=== PATIENT | female | born 1990 | race Caucasian/White ===

== ENCOUNTER 2016-08-28 10:49 | Outpatient (CLI) | payer MEDICAID | END 2016-08-28 10:50 | disposition home or self-care (01) | DX: Z36 Encounter for antenatal screening of mother (principal) ==

== ENCOUNTER 2016-09-26 11:15 | Outpatient (CLI) | payer MEDICAID | END 2016-09-26 11:16 | disposition home or self-care (01) | DX: Z36 Encounter for antenatal screening of mother (principal) ==

== ENCOUNTER 2016-10-25 10:43 | Outpatient (CLI) | payer MEDICAID | END 2016-10-25 10:44 | disposition home or self-care (01) | DX: O12.12 Gestational proteinuria, second trimester (principal) ==

== ENCOUNTER 2016-10-30 12:43 | Outpatient (CLI) | payer MEDICAID | END 2016-10-30 12:44 | disposition home or self-care (01) | DX: Z36 Encounter for antenatal screening of mother (principal) ==

== ENCOUNTER 2016-12-04 15:37 | Outpatient (CLI) | payer MEDICAID | END 2016-12-04 15:38 | disposition home or self-care (01) | DX: Z36 Encounter for antenatal screening of mother (principal) ==

== ENCOUNTER 2016-12-11 12:10 | Outpatient (CLI) | payer MEDICAID | END 2016-12-11 23:59 | disposition home or self-care (01) | DX: K29.90 Gastroduodenitis, unspecified, without bleeding (principal) ==

== ENCOUNTER 2016-12-19 11:40 | Outpatient (CLI) | payer MEDICAID | END 2016-12-19 11:41 | disposition home or self-care (01) | DX: R07.0 Pain in throat (principal) ==

== ENCOUNTER 2016-12-27 13:32 | Outpatient (CLI) | payer MEDICAID ==
--- NOTE | 2016-12-28 09:37 | Ultrasound Report ---
THYROID ULTRASOUND: 12/27/2016 CLINICAL INDICATION: Pain in throat. TECHNIQUE: Real-time scanning was performed with clearance representative static images obtained. FINDINGS: The right lobe measures 8.2 x 2.2 x 2.1 cm, and the left lobe measures 7.7 x 2.0 x 1.8 cm. The isthmus measures 9 mm. Multiple nodules of mixed echogenicity are scattered throughout both lo bes bilaterally. No dominant suspicious nodule is appreciated. IMPRESSION: MULTINODULAR GOITER. NO EVIDENCE OF CERVICAL ADENOPATHY. JOB #: [id number] EXT JOB #:[id number]
== END 2016-12-27 13:33 | disposition home or self-care (01) ==
LOC: DI 13:32
PROVIDERS: ATTEND Obstetrics & Gynecology
DX: E04.2 Nontoxic multinodular goiter (principal)
CPT/HCPCS: 76536

== ENCOUNTER 2017-01-16 11:59 | Outpatient (CLI) | payer MEDICAID ==
[2017-01-16 12:43] LABS: BASOPHILS % (AUTO) 0.4 %; EOSINOPHILS # (AUTO) 0.1 10^3/uL (0.0-0.7); EOSINOPHILS % (AUTO) 1.1 %; HCT - HEMATOCRIT 31.8 % (37.0-47.0); HGB - HEMOGLOBIN 10.5 g/dL (12.0-16.0); LYMPHOCYTES # (AUTO) 1.4 10^3/uL (1.5-3.5); LYMPHOCYTES % (AUTO) 11.8 %; MEAN CORPUSCULAR HEMOGLOBIN 24.8 pg (27.0-31.0); MEAN CORPUSCULAR VOLUME 75.3 fL (81.0-99.0); MEAN PLATELET VOLUME 9.1 fL (7.9-10.8); MONOCYTES # (AUTO) 0.6 10^3/uL (0.0-1.0); MONOCYTES % (AUTO) 5.1 %; NEUTROPHILS # (AUTO) 9.9 10^3/uL (1.5-6.6); NEUTROPHILS % (AUTO) 81.6 %; NUCLEATED RED BLOOD CELLS AUTO 0.1 /100WBC; RED BLOOD COUNT 4.23 10^6/uL (4.20-5.40); RED CELL DISTRIBUTION WIDTH 16.3 % (12.0-15.0); UNCORRECTED WHITE BLOOD COUNT 12.1 x10^3/uL; WHITE BLOOD COUNT 12.1 x10^3/uL (4.8-10.8)
== END 2017-01-16 12:00 | disposition home or self-care (01) ==
LOC: LAB 11:59
PROVIDERS: ATTEND Obstetrics & Gynecology
DX: Z36 Encounter for antenatal screening of mother (principal)
CPT/HCPCS: 36415; 82570; 84156; 84450; 84550; 85025

== ENCOUNTER 2017-01-17 08:00 | Outpatient (CLI) | payer MEDICAID | END 2017-01-17 23:59 | disposition home or self-care (01) | LOC: LAB.R 08:00 | PROVIDERS: ATTEND Obstetrics & Gynecology | DX: Z36 Encounter for antenatal screening of mother (principal) | CPT/HCPCS: 84156 ==

== ENCOUNTER 2017-01-17 11:12 | Outpatient (CLI) | payer MEDICAID ==
[2017-01-17 11:47] LABS: URIC ACID 4.4 mg/dL (2.6-7.2)
== END 2017-01-17 11:13 | disposition home or self-care (01) ==
LOC: LAB 11:12
PROVIDERS: ATTEND Obstetrics & Gynecology
DX: Z36 Encounter for antenatal screening of mother (principal)
CPT/HCPCS: 84450; 84550

== ENCOUNTER 2017-02-05 08:00 | Outpatient (CLI) | payer MEDICAID | END 2017-02-05 08:01 | disposition home or self-care (01) | LOC: LAB.R 08:00 | PROVIDERS: ATTEND Obstetrics & Gynecology | DX: Z36 Encounter for antenatal screening of mother (principal) | CPT/HCPCS: 87081 ==

== ENCOUNTER 2017-02-05 11:42 | Outpatient (CLI) | payer MEDICAID ==
[2017-02-05 12:36] VITALS: BP 112/55
== END 2017-02-05 12:42 | disposition home or self-care (01) ==
LOC: WFO 11:42 → OB 11:43 → WFO 12:42
PROVIDERS: ATTEND Obstetrics & Gynecology
DX: O36.8130 Decreased fetal movements, third trimester, not applicable or unspecified (principal); Z3A.34 34 weeks gestation of pregnancy
CPT/HCPCS: 59025; 87081

== ENCOUNTER 2017-02-12 10:24 | Outpatient (CLI) | payer MEDICAID ==
[2017-02-12 13:33] LABS: BILIRUBIN,URINE NEGATIVE (NEGATIVE)
[2017-02-12 13:45] LABS: UR CULTURE IF IND NOT INDICATED; WBC,URINE 0-3 /HPF (0-5)
[2017-02-12 13:49] VITALS: BP 127/56
== END 2017-02-12 14:00 | disposition home or self-care (01) ==
LOC: WFO 10:24 → OB 10:26 → WFO 14:00
PROVIDERS: ATTEND Obstetrics & Gynecology
DX: O99.89 Other specified diseases and conditions complicating pregnancy, childbirth and the puerperium (principal); R10.9 Unspecified abdominal pain
CPT/HCPCS: 59025; 81001; 87086

== ENCOUNTER 2017-02-19 08:00 | Outpatient (CLI) | payer MEDICAID | END 2017-02-19 08:01 | disposition home or self-care (01) | DX: Z36 Encounter for antenatal screening of mother (principal) ==

== ENCOUNTER 2017-02-19 21:08 | Outpatient (CLI) | payer MEDICAID ==
[2017-02-19] MEDS ORDERED: oxyCOD/ACETAMIN 5 MG/325 MG TABLET PO SCH (22:00)
[2017-02-19 22:02] LABS: BASOPHILS # (AUTO) 0.1 10^3/uL (0.0-0.1); BASOPHILS % (AUTO) 0.7 %; EOSINOPHILS # (AUTO) 0.2 10^3/uL (0.0-0.7); EOSINOPHILS % (AUTO) 1.7 %; HCT - HEMATOCRIT 34.1 % (37.0-47.0); HGB - HEMOGLOBIN 10.8 g/dL (12.0-16.0); LYMPHOCYTES # (AUTO) 1.7 10^3/uL (1.5-3.5); LYMPHOCYTES % (AUTO) 13.7 %; MEAN CORPUSCULAR HEMOGLOBIN 23.6 pg (27.0-31.0); MEAN CORPUSCULAR HGB CONC 31.7 g/dL (32.0-36.0); MEAN CORPUSCULAR VOLUME 74.5 fL (81.0-99.0); MEAN PLATELET VOLUME 9.3 fL (7.9-10.8); NEUTROPHILS # (AUTO) 9.2 10^3/uL (1.5-6.6); NEUTROPHILS % (AUTO) 75.9 %; RED BLOOD COUNT 4.58 10^6/uL (4.20-5.40); UNCORRECTED WHITE BLOOD COUNT 12.1 x10^3/uL; WHITE BLOOD COUNT 12.1 x10^3/uL (4.8-10.8)
[2017-02-19 22:14] LABS: ALBUMIN/GLOBULIN RATIO 0.7 (1.0-2.2); BILIRUBIN,TOTAL 0.6 mg/dL (0.2-1.0); CALCIUM 8.7 mg/dL (8.5-10.3); CREATININE 0.5 mg/dL (0.4-1.0); POTASSIUM 3.8 mmol/L (3.5-5.0); URIC ACID 4.7 mg/dL (2.6-7.2)
[2017-02-19 22:58] VITALS: BP 120/74
[2017-02-19] MEDS ORDERED: oxyCODONE/ACET 5/325 Prepack 4 PO SCH (22:58)
== END 2017-02-19 23:15 | disposition home or self-care (01) ==
LOC: WFO 21:08 → OB 21:09 → WFO 23:15
PROVIDERS: ATTEND Obstetrics & Gynecology
DX: O99.353 Diseases of the nervous system complicating pregnancy, third trimester (principal); G43.909 Migraine, unspecified, not intractable, without status migrainosus; Z3A.36 36 weeks gestation of pregnancy; Z36 Encounter for antenatal screening of mother
CPT/HCPCS: 36415; 80053; 82570; 84156; 84550; 85025; 87081; 99214; A9270

== ENCOUNTER 2017-02-22 13:27 | Outpatient (CLI) | payer MEDICAID ==
[2017-02-22] MEDS ORDERED: ONDANSETRON ODT 4 MG TABLET PO PRN (14:55)
[2017-02-22 15:40] VITALS: BP 107/62
== END 2017-02-22 15:40 | disposition home or self-care (01) ==
LOC: WFO 13:27 → OB 13:28 → WFO 15:40
PROVIDERS: ATTEND Obstetrics & Gynecology
DX: O21.9 Vomiting of pregnancy, unspecified (principal); Z3A.36 36 weeks gestation of pregnancy
CPT/HCPCS: 99212; Q0162

== ENCOUNTER 2017-02-27 09:57 | Inpatient (IN) | payer MEDICAID ==
[2017-02-27] MEDS ORDERED: fentaNYL 100 MCG/2 ML VIAL IVP PRN ×2 (10:41→17:18)
[2017-02-27] MEDS ORDERED: SODIUM CHLORIDE FLUSH 0.9% 10 ML SYRINGE IVP PRN (10:41)
[2017-02-27] MEDS ORDERED: ceFAZolin 2 GM/50 ML 50 ML IV SCH (10:41)
[2017-02-27 11:14] LABS: BASOPHILS # (AUTO) 0.1 10^3/uL (0.0-0.1); BASOPHILS % (AUTO) 0.6 %; EOSINOPHILS # (AUTO) 0.2 10^3/uL (0.0-0.7); EOSINOPHILS % (AUTO) 1.5 %; HCT - HEMATOCRIT 32.6 % (37.0-47.0); HGB - HEMOGLOBIN 10.8 g/dL (12.0-16.0); LYMPHOCYTES # (AUTO) 1.4 10^3/uL (1.5-3.5); LYMPHOCYTES % (AUTO) 13.7 %; MEAN CORPUSCULAR HEMOGLOBIN 24.2 pg (27.0-31.0); MEAN CORPUSCULAR VOLUME 73.2 fL (81.0-99.0); MEAN PLATELET VOLUME 9.5 fL (7.9-10.8); MONOCYTES # (AUTO) 0.7 10^3/uL (0.0-1.0); MONOCYTES % (AUTO) 6.5 %; NEUTROPHILS # (AUTO) 7.9 10^3/uL (1.5-6.6); NEUTROPHILS % (AUTO) 77.7 %; NUCLEATED RED BLOOD CELLS AUTO 0.1 /100WBC; RED BLOOD COUNT 4.45 10^6/uL (4.20-5.40); RED CELL DISTRIBUTION WIDTH 19.6 % (12.0-15.0); UNCORRECTED WHITE BLOOD COUNT 10.2 x10^3/uL; WHITE BLOOD COUNT 10.2 x10^3/uL (4.8-10.8)
[2017-02-27] MEDS: SODIUM CHLORIDE FLUSH 0.9% 10 ML SYRINGE IVP SCH ×2 (11:35→23:21)
[2017-02-27] MEDS: LACTATED RINGERS 1,000 ML IV SCH ×3 (11:35→22:48)
[2017-02-27 11:59] LABS: THYROID STIMULATING HORMONE 0.72 uIU/mL (0.34-5.60)
[2017-02-27] MEDS ORDERED: ONDANSETRON 4 MG/2 ML VIAL IVP ONE (12:30)
[2017-02-27] MEDS ORDERED: MORPHINE PF 5 MG/10 ML AMP EP ONE (12:30)
[2017-02-27] MEDS ORDERED: fentaNYL 100 MCG/2 ML VIAL IVP ONE (12:30)
[2017-02-27] MEDS ORDERED: PHENYLEPHRINE 50 MG/5 ML VIAL IV ONE (12:30)
[2017-02-27] MEDS ORDERED: CITRIC ACID/SODIUM CITRATE 15 ML UDC PO ONE (12:41)
[2017-02-27] MEDS ORDERED: MAGNESIUM HYDROXIDE 2,400 MG/30 ML UDC PO PRN (14:25)
--- NOTE | 2017-02-27 14:41 | OPERATIVE REPORT ---
Operative Report - General Admit Date: 02/27/17 - Other Other Information/Narrative: Date of Operation: 02/27/2017 Surgeon: Vicki Chavez DO FACOG Acid Pump Operator: Juan Miguel Hilton MD FACOG Language Pathologist: Kobe Garcia CRNA Anethesia: Spinal Pre-op Dx: 1. 26 yo with a 37w4d IUP 2. PROM 3. Prior CD x 1 Post-op Dx: 1. 26 yo with a 37w4d IUP 2. PROM 3. Prior CD x 1 Procedure: Repeat CD Findings: Viable female fetus, "Karely," VTX presentation. Normal uterus, fallopian tubes and ovaries. Apgars 9/9. Weight 3794 gm or 8 lbs, 5.8 oz. Specimens: 1. Placenta (to medical waste) 2. Cord blood (to lab) Drains: 1. Sheridan catheter to gravity 2. Prevena wound vac EBL: 500 mL Complications: None Dictation: [id number]
[2017-02-27] MEDS ORDERED: FERRIC GLUCONATE 125 MG in SODIUM CHLORIDE 0.9% 100ML 100 ML IV SCH (15:00)
[2017-02-27] MEDS: ONDANSETRON 4 MG/2 ML VIAL IVP PRN ×2 (15:41→21:17)
[2017-02-27] MEDS ORDERED: KETOROLAC 30 MG/ML VIAL IVP ONE (17:17)
[2017-02-27] MEDS: ACETAMINOPHEN 500 MG TABLET PO SCH (17:50)
[2017-02-27] MEDS: oxyCODONE 5 MG TABLET PO SCH ×2 (17:51→23:21)
[2017-02-27] MEDS ORDERED: CELECOXIB 100 MG CAPSULE PO SCH (21:00)
[2017-02-27] MEDS: DOCUSATE SODIUM 100 MG CAPSULE PO SCH (23:21)
[2017-02-27] MEDS: SIMETHICONE CHEW 80 MG TABLET PO SCH (23:21)
[2017-02-27] MEDS: PROMETHAZINE INJ 25 MG in SODIUM CHLORIDE 0.9% 50 ML IV PRN (23:59)
[2017-02-27] MEDS: KETOROLAC 30 MG/ML VIAL IVP SCH (23:59)
[2017-02-28] MEDS: ACETAMINOPHEN 500 MG TABLET PO SCH ×3 (01:47→18:16)
[2017-02-28] MEDS: oxyCODONE 5 MG TABLET PO SCH ×6 (02:12→22:16)
[2017-02-28] MEDS: KETOROLAC 30 MG/ML VIAL IVP SCH (05:51)
[2017-02-28] MEDS: PROMETHAZINE INJ 25 MG in SODIUM CHLORIDE 0.9% 50 ML IV PRN (06:13)
[2017-02-28] MEDS: LACTATED RINGERS 1,000 ML IV SCH ×3 (06:15→15:50)
[2017-02-28] MEDS: SODIUM CHLORIDE FLUSH 0.9% 10 ML SYRINGE IVP SCH ×2 (06:16→15:51)
[2017-02-28] MEDS: SIMETHICONE CHEW 80 MG TABLET PO SCH ×3 (06:18→22:17)
[2017-02-28] MEDS ORDERED: LACTATED RINGERS 500 ML IV ONE (08:46)
--- NOTE | 2017-02-28 08:50 | PROVIDER PROGRESS NOTE ---
Subjective - Prog Note Date Prog Note Date: 02/28/17 Prog Note Time: 08:48 - Subjective Pt reports feeling: Improved Subjective: Patient in bed, finishing breakfast. at bedside carrying baby. Patient' s last emesis at 00:00. Phenergan better than zofran for nausea control. Pain controlled so far; patient has gotten out of bed. Parnell and IV still in-situ. Current Medications - Current Medications Current Medications: Routine IV toradol, po Tylenol. PRN IV phenergan. Objective - Vital Signs/Intake & Output Reviewed Vital Signs: Yes Vital Signs: Vital Signs x48h Temp Pulse Resp BP Pulse Ox 02/28/17 07:52 96 18 109/52 L 99 02/28/17 05:09 18 96 02/28/17 04:10 98.2 F 92 16 98/53 L 96 02/28/17 02:30 18 98 02/28/17 01:30 16 96 Intake & Output: Intake & Output 02/25/17 02/26/17 02/27/17 02/28/17 23:59 23:59 23:59 23:59 Intake Total 1300 700 Output Total 600 350 Balance 700 350 - Objective General Appearance: positive: No acute distress Eyes Bilateral: positive: Normal inspection Abdomen: positive: Non-tender (Prevena wound vac intact and working well) Neurologic/Psychiatric: positive: Oriented x3 (Flat affect. Minimal verbalization.) - Lab Results Fish Bones: 02/27/17 10:55 Other Labs: Lab Results x24hrs 02/27/17 02/27/17 02/27/17 Range/Units 10:55 10:55 10:55 WBC (4.8-10.8) x10^3/uL RBC (4.20-5.40) 10^6/uL Hgb (12.0-16.0) g/dL Hct (37.0-47.0) % MCV (81.0-99.0) fL MCH (27.0-31.0) pg MCHC (32.0-36.0) g/dL RDW (12.0-15.0) % Plt Count (130-450) 10^3/uL MPV (7.9-10.8) fL Neut # (1.5-6.6) 10^3/uL Lymph # (1.5-3.5) 10^3/uL Lares # (0.0-1.0) 10^3/uL Eos # (0.0-0.7) 10^3/uL Baso # (0.0-0.1) 10^3/uL Absolute Nucleated RBC x10^3/uL Nucleated RBCs /100WBC TSH 0.72 (0.34-5.60) uIU/mL Free T4 0.73 (0.58-1.64) ng/dL Free T3 pg/mL 3.60 (2.5-3.9) pg/mL Blood Type O POSITIVE Antibody Screen NEGATIVE 02/27/17 Range/Units 10:55 WBC 10.2 (4.8-10.8) x10^3/uL RBC 4.45 (4.20-5.40) 10^6/uL Hgb 10.8 L (12.0-16.0) g/dL Hct 32.6 L (37.0-47.0) % MCV 73.2 L (81.0-99.0) fL MCH 24.2 L (27.0-31.0) pg MCHC 33.0 (32.0-36.0) g/dL RDW 19.6 H (12.0-15.0) % Plt Count 142 (130-450) 10^3/uL MPV 9.5 (7.9-10.8) fL Neut # 7.9 H (1.5-6.6) 10^3/uL Lymph # 1.4 L (1.5-3.5) 10^3/uL Lares # 0.7 (0.0-1.0) 10^3/uL Eos # 0.2 (0.0-0.7) 10^3/uL Baso # 0.1 (0.0-0.1) 10^3/uL Absolute Nucleated RBC 0.01 x10^3/uL Nucleated RBCs 0.1 /100WBC TSH (0.34-5.60) uIU/mL Free T4 (0.58-1.64) ng/dL Free T3 pg/mL (2.5-3.9) pg/mL Blood Type Antibody Screen Assessment/Plan - Problem List (1) delivery delivered Impression: 26 yo S/p repeat CD 02/27/2017, POD #1 Improved nausea and vomiting. Dehydrated due to surgery and emesis IVF bolus 500 mL and then continue maintenance. Will saline lock later today after urine output improves. Remove parnell catheter. Hold IV toradol and start routine po Celebrex. Ambulate. Anticipate discharge to home tomorrow.
[2017-02-28] MEDS: CELECOXIB 100 MG CAPSULE PO SCH ×2 (09:58→22:16)
[2017-02-28] MEDS: DOCUSATE SODIUM 100 MG CAPSULE PO SCH ×2 (09:58→21:24)
--- NOTE | 2017-02-28 13:16 | OPERATIVE REPORT ---
DATE OF SURGERY: 02/27/2017 00:00:00 PREOPERATIVE DIAGNOSES 1. A 26-year-old G2, P1-0-0-1 at 37 and 4/7 week intrauterine . 2. Premature rupture of membranes. 3. Prior delivery x1. POSTOPERATIVE DIAGNOSES 1. A 26-year-old G2, P1-0-0-1 at 37 and 4/7 week intrauterine . 2. Premature rupture of membranes. 3. Prior delivery x1. NAME OF PROCEDURE: Repeat delivery. SURGEON: Vicki Chavez D.O. ANESTHESIA: Spinal. VOCATIONAL REHABILITATION CONSULTANT: Juan Miguel Hilton MD ANESTHESIOLOGIST: Kobe Garcia CRNA FINDINGS: Viable female fetus, vertex presentation, named Karely. Normal uterus, fallopian tubes, and ovaries were noted. Apgars 9 and 9 at one and five minutes, respectively. Weight is 3794 grams or 8 pounds 5.8 ounces. SPECIMENS 1. Placenta to medical waste. 2. Cord blood to lab. DRAINS 1. Sheridan catheter to gravity. 2. Prevena wound VAC. ESTIMATED BLOOD LOSS: 500 mL. COMPLICATIONS: None. BRIEF HISTORY: The patient is a patient of [facility], who has noted loss of fluid e arlier today. She presented to Labor and Delivery and was found to be grossly ruptured. heart t ones were reactive category I, with a baseline in 130s. There were no contractions. I recommended the patient to undergo a repeat delivery. I discussed with her the risks, benefits, alternative s, indications, expectations of surgery. In our discussion I told her about the risk of hemorrhage, i nfection, damage to surrounding organs which may be inadvertent laceration, cauterization, or ligatio n of adjacent ureters, intestines, and bladder. After her questions were answered to her satisfaction , she verbalized her desire to proceed with surgery. Consent forms had been signed. OPERATION IN DETAIL: The patient was identified, consented, taken to the operating room with IV acces s already in place. She was then given satisfactory spinal anesthesia per Kobe Garcia. Sequential c ompression devices were placed on her lower legs and turned on. Two grams of Ancef IV were given to t he patient. Patient was then prepped and draped in normal sterile fashion in a dorsal supine position with a leftward tilt. Sheridan catheter was placed in her bladder and a timeout was correctly performed . I correctly performed, identifying the patient, site of the procedure, and the procedure itself. The patient's prior Pfannenstiel scar was first sharply excised. The incision was then taken deeply t o the layer of the fascia. Fascia was then nicked in the midline and extended laterally. The rectus m uscles were then dissected off the fascia. The rectus muscles were then sharply incised in the midlin e and the peritoneum entered sharply as well. This incision was then extended laterally. A bladder flap was then created by dissecting off the vesicouterine peritoneum. The hysterotomy was t hen performed in the lower uterine segment. Clear fluid was noted upon amniotomy. With the help of fu ndal pressure, the 's head delivered through the hysterotomy. The nose and mouth were suctioned with the bulb syringe. Again, with help of fundal pressure, the rest of the infant delivered through the hysterotomy. The baby gave a lusty cry upon delivery. The umbilical cord was then doubly clamped and cut and the was then given to Ander Chandra M.D., the on-call loom operator apprentice. Umbilical cord sample was obtained and sent off. The uterus was then internally massaged and placenta delivered manually. It was noted that the placenta appeared to be quite mature, with calcifications. The placenta did not come off in one specimen. The uterus was then delivered out of the abdomen and cleared of all clots and debris. The hysterotomy was closed with 2 sutures of 0 Vicryl, first in a ru nning locked fashion, then in an imbricating fashion using the Lembert stitch. Hemostasis was noted. A small area of adhesions was noted between the anterior surface of the uterus and attaching to the l ower right uterine anterior portion. This was lysed with electrocautery, and since there appeared to be a vein in the adhesion, hemostasis was obtained after throwing several [id number] stitches of 0 Vicryl. Reinspection of the hysterotomy found it to be hemostatically stable. The abdomen was copiously irrigated and found to be hemostatically stable. The uterus was then return ed to the abdomen, and again the abdomen was copiously irrigated. Hemostasis was seen. Peritoneum was closed with a running stitch of 2-0 Vicryl and the same stitch was used to reapproximate the rectus muscles. Fascia was then closed with 0 Vicryl in a running fashion. Subcuticular layer was then reapp roximated with single interrupted stitches of 2-0 Vicryl. The skin was then closed with 4-0 Monocryl in a subcuticular fashion. A Prevena wound VAC was placed on top of the incision and was turned on. The patient tolerated the procedure well, was sent back to recovery room in stable and awake conditio n. She will be given routine care, including around the clock Celebrex and Tylenol. The patient will also be given routine oxycodone. I will anticipate taking the Sheridan catheter out in the morning and t he Prevena wound VAC in about 4 days' time. All sponge, lap, and needle counts were correct x2 as per nurse report. JOB #: [id number] EXT JOB #:[id number]
--- NOTE | 2017-02-28 13:53 | PREOP HISTORY & PHYSICAL ---
DATE OF ADMISSION/SURGERY: 02/27/2017 IDENTIFICATION: A 26-year-old G2, P1-0-0-1, with a 37 and 4/7 week intrauterine . EDC is 11/2016, changed via 7-week ultrasound. HISTORY OF PRESENT ILLNESS: The patient is a patient at [facility] who noted a loss of fluid today. She has been having routine visits with us since 7 weeks' gestation. The pat lois's has been complicated by throat pain of unknown etiology. She was found to have hypot hyroidism and started on a low dose of levothyroxine. Ultrasound showed that she also had a multinodu lar goiter. She was then referred to endocrine doctor, Dimas Broussard M.D. He recommended that the patie nt stop her levothyroxine and retest her thyroid labs in 4 to 6 weeks. Her throat pain has improved s pontaneously. In any event, the patient was found to be grossly ruptured today. Her cervix is 1 cm dilated, closed, and -3 station. Nonstress test was reactive, category I tracing. There were no decelerations. Baseli ne is 130s. There were no decelerations and no contractions as well. The patient has been scheduled f or a repeat delivery since her first delivery was by secondary to failure to dilate and descend. It was scheduled for 03/14/2017. PAST MEDICAL HISTORY 1. Obesity, with a BMI of 42.4. 2. GERD. 3. Multinodular goiter. PAST SURGICAL HISTORY: delivery x1 secondary to failure to dilate and descend on 12/26/2011. ALLERGIES: NO KNOWN DRUG ALLERGIES. MEDICATIONS 1. vitamins. 2. Ranitidine 150 mg. SOCIAL HISTORY: She denies any tobacco, alcohol, or illicit drug use. This is a female fetus, with an ticipated name of Karely. Her 's name is Ander and they have a little boy, Oskar. Her mom i s Joycelyn. PAST OBSTETRICAL HISTORY: One term delivery at 40 weeks, 8 pounds 12 ounces, of son Oskar secondary to failure to dilate and descend. PAST GYNECOLOGICAL HISTORY: She has had 2 abnormal Pap smears with spontaneous resolution. She denies any other sexually transmitted diseases. FAMILY HISTORY: Noncontributory. REVIEW OF SYSTEMS: Negative unless otherwise stated. OBJECTIVE VITAL SIGNS: Temperature is 98.4, heart rate 98, blood pressure 117/65, respiratory rate 16, O2 satur ation 100%. GENERAL: The patient is a well-developed, well-nourished [place] female in no apparent dist ress. She is alert and oriented x3. CARDIOVASCULAR: Rate is regular. No murmurs or rubs. PULMONARY: Lungs are clear to auscultation bilaterally. ABDOMEN: Gravid, nontender. Baby is vertex by Pete. Estimated weight is 7 pounds. There is a well-healed Pfannenstiel skin incision. LABORATORY STUDIES: On 02/27/2017 labs showed a white count of 10.2, hemoglobin of 10.8, and hematocr it of 32.6, MCV is decreased at 73.2, platelets 142. TSH is 0.72, free T3 is 0.73. She is O positive and antibody screen negative. Currently pending a free T3. labs show that she is O positive, antibody screen negative, RPR nonreactive, rubella immune, hepatitis B surface antigen negative. Pap smear is negative on 07/31/2016. She is negative for gonorrhea and chlamydia. One-hour glucose juan carlos ance test was 137. GBS is negative. anatomical survey showed a posterior placenta, 3-vessel cor d, normal anatomical survey and dates were consistent. ASSESSMENT 1. A 26-year-old G2, P1-0-0-1, with a 37 and 4/7 week intrauterine . 2. Premature rupture of membranes. 3. Primary delivery x1. PLAN 1. Will proceed to a repeat delivery. 2. Patient does have iron-deficiency anemia and will likely give her iron after delivery. 3. Routine care. JOB #: [id number] EXT JOB #:[id number]
[2017-03-01] MEDS: ACETAMINOPHEN 500 MG TABLET PO SCH ×3 (02:39→17:51)
[2017-03-01] MEDS: oxyCODONE 5 MG TABLET PO SCH ×6 (02:40→22:49)
[2017-03-01] MEDS: SIMETHICONE CHEW 80 MG TABLET PO SCH ×3 (06:28→21:57)
--- NOTE | 2017-03-01 08:33 | PROVIDER PROGRESS NOTE ---
Subjective - Prog Note Date Prog Note Date: 03/01/17 Prog Note Time: 08:31 - Subjective Pt reports feeling: Worse Subjective: Sitting in chair, about to eat breakfast. States painful getting in and out of bed, and going to the bathroom. Having vaginal bleeding and changing the pad every time she toilets. Urinating well. Baby still learning to latch. Current Medications - Current Medications Current Medications: Routine Celebrex, acetaminophen, oxycodone, colace. Objective - Vital Signs/Intake & Output Reviewed Vital Signs: Yes Vital Signs: Vital Signs x48h Temp Pulse Resp BP Pulse Ox 03/01/17 02:30 98.1 F 111 H 18 122/63 99 Intake & Output: Intake & Output 02/26/17 02/27/17 02/28/17 03/01/17 23:59 23:59 23:59 23:59 Intake Total 1300 3600 Output Total 600 1975 Balance 700 1625 - Objective General Appearance: positive: No acute distress, Other (Flat affect, not motivated. Does not have a positive attitude. Speaks sparingly) Eyes Bilateral: positive: Normal inspection Abdomen: positive: Non-tender (Prevena wound vac intact and working well) Neurologic/Psychiatric: positive: Oriented x3 - Lab Results Fish Bones: 02/27/17 10:55 Assessment/Plan - Problem List (1) delivery delivered Impression: 26 yo S/p repeat CD 02/27/2017 secondary to PROM, POD #2. Slow recovery. Continue current care. Anticipate discharge to home tomorrow. S/p 02/27/2017 iron transfusion for iron deficiency anemia.
[2017-03-01] MEDS: DOCUSATE SODIUM 100 MG CAPSULE PO SCH ×2 (09:25→21:13)
[2017-03-01] MEDS: CELECOXIB 100 MG CAPSULE PO SCH ×2 (09:59→21:58)
[2017-03-02] MEDS: ACETAMINOPHEN 500 MG TABLET PO SCH ×2 (01:48→09:39)
[2017-03-02] MEDS: oxyCODONE 5 MG TABLET PO SCH ×3 (03:12→10:51)
[2017-03-02] MEDS: SIMETHICONE CHEW 80 MG TABLET PO SCH (06:56)
--- NOTE | 2017-03-02 09:26 | PROVIDER PROGRESS NOTE ---
Subjective - Prog Note Date Prog Note Date: 03/02/17 Prog Note Time: 09:24 - Subjective Pt reports feeling: Improved Subjective: Patient sitting in bed, breast pumping. Dr. Chandra just finishing up examining baby Karely. Nausea resolved. No fevers or chills. Stings a little when she urinates. Still having some pain when she gets in and out of bed. Normal lochia. Objective - Vital Signs/Intake & Output Reviewed Vital Signs: Yes Vital Signs: Vital Signs x48h Temp Pulse Resp BP BP Pulse Ox 03/02/17 07:53 97.7 F 93 14 125/83 H 99 03/02/17 03:09 97.7 F 101 H 16 110/63 98 Intake & Output: Intake & Output 02/27/17 02/28/17 03/01/17 03/02/17 23:59 23:59 23:59 23:59 Intake Total 1300 3600 Output Total 600 1975 Balance 700 1625 - Objective General Appearance: positive: No acute distress Eyes Bilateral: positive: Normal inspection Abdomen: positive: Non-tender (Prevena wound vac intact and working well) Neurologic/Psychiatric: positive: Oriented x3 - Lab Results Fish Bones: 02/27/17 10:55 Assessment/Plan - Problem List (1) delivery delivered Impression: 26 yo S/p repeat CD 02/28/2017, POD #3. Normal recovery. S/p iron transfusion for iron deficiency anemia. Discharge to home today. Home Rx for ibuprofen, oxycodone and colace. Pelvic rest, no lifting > 10 lbs. Call for worsening fevers, chills, abdominal pain or vaginal bleeding. Follow up with me 03/05/2017 for removal of Prevena wound vac. Discharge Plan Disposition: 01 Home, Self Care Condition: Good Diet: Regular Shower Restrictions: No Driving Restrictions: Yes (No driving) Weight Bearing: Full Weight No Smoking: If you smoke, Please STOP! Call for help.
[2017-03-02] MEDS: DOCUSATE SODIUM 100 MG CAPSULE PO SCH (09:39)
[2017-03-02] MEDS: CELECOXIB 100 MG CAPSULE PO SCH (09:40)
[2017-03-02 12:33] VITALS: BP 135/83
[2017-03-02] MEDS ORDERED: MEASLES,MUMPS & RUBELLA VACC 0.5 ML VIAL SUBQ ONE (13:00)
--- NOTE | 2017-03-03 16:09 | DISCHARGE SUMMARY ---
DATE OF ADMISSION: 02/27/2017 DATE OF DISCHARGE: 03/02/2017 DIAGNOSES ON ADMISSION: 1. A 26-year-old G2, P1-0-0-1, with a 37 and 4 week intrauterine . 2. Premature rupture of membranes. 3. Prior caesarean delivery x1. DIAGNOSES ON DISCHARGE: 1. A 26-year-old G2, P2-0-0-2 status post repeat caesarean delivery on 02/27/2017. 2. Status post iron transfusion for iron deficiency anemia. 3. Normal recovery. BRIEF HISTORY: The patient is a patient of [facility] who presented on 02/27/2017 wi th complaints of loss of fluid. The patient was found to be grossly ruptured. She underwent a repeat caesarean delivery and had a viable female named Karely. Apgars were 9 and 9 at 1 and 5 minute s respectively and she weighed 3,794 grams or 8 pounds 5.8 ounces. Surgery went well, there were no c omplications. Estimated blood loss was 500 mL. The patient's postoperative course has only been noted for a slow recovery. The patient was given ahsan und the clock NSAIDs as well as acetaminophen and Colace. In addition she was given narcotics for silvia akthrough pain. The patient will be discharged to home on postoperative day #3, 03/02/2017. She will be given prescriptions for Motrin, Colace, and Oxycodone for postoperative management. Anticipate see ing patient in the next few days in order to remove her Prevena wound VAC. The patient should call ould she have any worsening fevers, chills, abdominal pain or vaginal bleeding. JOB #: [id number] EXT JOB #:[id number]
== END 2017-03-02 14:00 | disposition home or self-care (01) | DRG 765 ==
LOC: WFO 09:57 → OB 09:58 → WFO 10:48 → OB 03-02 11:41
PROVIDERS: ADMIT Obstetrics & Gynecology; ATTEND Obstetrics & Gynecology
PROC: 10D00Z1 Extraction of Products of Conception, Low, Open Approach (ICD-10-PCS; principal; 2017-02-27)
DX: O42.92 Full-term premature rupture of membranes, unspecified as to length of time between rupture and onset of labor (principal); Z68.41 Body mass index [BMI] 40.0-44.9, adult; O34.211 Maternal care for low transverse scar from previous cesarean delivery; N85.8 Other specified noninflammatory disorders of uterus; O99.214 Obesity complicating childbirth; O99.62 Diseases of the digestive system complicating childbirth; K21.9 Gastro-esophageal reflux disease without esophagitis; O99.284 Endocrine, nutritional and metabolic diseases complicating childbirth; E04.2 Nontoxic multinodular goiter; E86.0 Dehydration; O99.02 Anemia complicating childbirth; D50.9 Iron deficiency anemia, unspecified; Z3A.37 37 weeks gestation of pregnancy; Z37.0 Single live birth
CPT/HCPCS: 36415; 84439; 84443; 84481; 85025; 86850; 86900; 86901; 99212

== ENCOUNTER 2017-08-14 09:30 | Outpatient (CLI) | payer MEDICAID | END 2017-08-14 09:45 | disposition home or self-care (01) | LOC: RT.N 09:30 | PROVIDERS: ATTEND Nurse Practitioner Gerontology | DX: R07.89 Other chest pain (principal) | CPT/HCPCS: 93005 ==

== ENCOUNTER 2017-11-27 08:00 | Outpatient (CLI) | payer MEDICAID | END 2017-11-27 08:01 | LOC: LAB.N 08:00 | PROVIDERS: ATTEND Nurse Practitioner Gerontology | DX: E03.9 Hypothyroidism, unspecified (principal) | CPT/HCPCS: 36415; 84443 ==

== ENCOUNTER 2018-01-04 09:21 | Outpatient (CLI) | payer MEDICAID ==
--- NOTE | 2018-01-04 17:15 | Ultrasound Report ---
COMPLETE ABDOMINAL ULTRASOUND: 01/04/2018 CLINICAL INDICATION: Pain. TECHNIQUE: Real-time scanning was performed with tax compliance representative static images obtained. FINDINGS: The liver measures 17.5 cm. Hepatic echotexture is heterogeneous, likely representing fatty infiltration. No focal parenchymal lesion or intrahepatic biliary dilatation is present. The common bile duct measures 5 mm. The gallbladder is normal. The pancreas is obscured by bowel gas. The kidneys are normal, with the right measuring 10.5 cm, and the left measuring 11.5 cm. The spleen measures 13 cm, and demonstrates normal echotexture. The abdominal aorta is normal in caliber. The visualized IVC is unremarkable. No free fluid is present. IMPRESSION: LIKELY FATTY INFILTRATION OF THE LIVER. NO EVIDENCE OF CHOLELITHIASIS OR BILIARY OBSTRUCTION. TD: 01/04/2018 12:03
== END 2018-01-04 09:22 | disposition home or self-care (01) ==
LOC: DI 09:21
PROVIDERS: ATTEND Nurse Practitioner Gerontology
DX: K29.70 Gastritis, unspecified, without bleeding (principal); K44.9 Diaphragmatic hernia without obstruction or gangrene; K21.9 Gastro-esophageal reflux disease without esophagitis
CPT/HCPCS: 76700

== ENCOUNTER 2018-07-26 15:45 | Emergency (ER) | payer OTHER, MEDICAID ==
[2018-07-26 15:55] VITALS: BP 130/79
[2018-07-26] MEDS ORDERED: DEXAMETHASONE 10 MG/ML VIAL PO STA (16:43)
--- NOTE | 2018-07-26 16:46 | ED Physician Documentation ---
PD HPI BACK PAIN - Stated complaint Stated Complaint: BACK INJ - Chief complaint Chief Complaint: Back Pain - History obtained from History obtained from: Patient, Family - History of Present Illness Timing - onset: How many weeks ago (1) Timing - duration: Weeks (1) Timing - details: Gradual onset, Still present Location: Upper, Right Quality: Pain, Spasm, Sharp Associated symptoms: No: Fever, Weakness, Numbness Improves with: Rest Worsened by: Movement, Lifting, Twisting Contributing factors: Lifting, Twisting Similar symptoms before: Has not had sx before Recently seen: Not recently seen - Additional information Additional information: 28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 She states that this initially was a low-grade pain in his progressed over the past week and she has pain with certain movements of her arms and background pain at rest. She denies any difficulty breathing or pain with inspiration. She has had a cough and congestion for the past week. Review of Systems Constitutional: denies: Fever Eyes: denies: Decreased vision Ears: denies: Ear pain Nose: reports: Congestion Throat: denies: Sore throat Cardiac: denies: Chest pain / pressure, Palpitations Respiratory: reports: Cough. denies: Dyspnea GI: denies: Abdominal Pain, Nausea, Vomiting : denies: Dysuria, Frequency Skin: denies: Rash Musculoskeletal: reports: Back pain. denies: Neck pain, Extremity pain Neurologic: denies: Generalized weakness, Focal weakness, Numbness PD PAST MEDICAL HISTORY - Past Surgical History Past Surgical History: No - Present Medications Home Medications: Ambulatory Orders Medication Instructions Recorded Confirmed Cephalexin [Keflex] 500 mg PO Q6HR 10 Days capsule 12/01/15 Metronidazole [Flagyl] 500 mg PO BID 7 Days tablet 12/01/15 Ondansetron Odt [Zofran] 4 mg TL Q6H PRN #10 tablet 12/01/15 oxyCODONE/ACET 5/325 [Percocet 5 1 each PO Q4-6H PRN #15 tablet 12/01/15 mg/325 mg] Cyclobenzaprine [Flexeril] 10 mg PO TID PRN #20 tablet 07/26/18 Hydrocodone/Acetaminophen 1 - 2 each PO Q6H PRN #14 tablet 07/26/18 [Hydrocodon-Acetaminophen 5-325] - Allergies Allergies/Adverse Reactions: Allergies Allergy/AdvReac Type Severity Reaction Status Date / Time No Known Drug Allergies Allergy Verified 07/26/18 15:55 - Social History Does the pt smoke?: No Smoking Status: Never smoker Does the pt drink ETOH?: No Does the pt have substance abuse?: No - Immunizations Immunizations are current?: No PD ED PE NORMAL - Vitals Vital signs reviewed: Yes (normal ) - General General: Alert and oriented X 3, No acute distress, Well developed/nourished - HEENT HEENT: Atraumatic, PERRL, EOMI - Neck Neck: Supple, no meningeal sign, No bony TTP - Cardiac Cardiac: RRR, No murmur - Respiratory Respiratory: No respiratory distress, Clear bilaterally, Other (There is point tenderness over the rhomboid muscle area on the right. There is full ROM of the right shoulder. ) - Abdomen Abdomen: Soft, Non tender - Back Back: No CVA TTP, No spinal TTP - Derm Derm: Normal color, Warm and dry, No rash - Extremities Extremities: No deformity, No edema - Neuro Neuro: Alert and oriented X 3, No motor deficit, No sensory deficit, Normal speech Eye Opening: Spontaneous Motor: Obeys Commands Verbal: Oriented GCS Score: 15 - Psych Psych: Normal mood, Normal affect Results - Vitals Vitals: Vital Signs - 24 hr 07/26/18 15:51 Temperature 36.4 C L Heart Rate 84 Respiratory 16 Rate Blood Pressure 130/79 O2 Saturation 98 Oxygen O2 Source Room air PD MEDICAL DECISION MAKING - ED course Complexity details: considered differential, d/w patient ED course: 28-year-old female with rhomboid muscle spasm in the right arm 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 Departure - Departure Disposition: 01 Home, Self Care Clinical Impression: Strain of rhomboid muscle Qualifiers: Encounter type: initial encounter Qualified Code(s): S29.012A - Strain of muscle and tendon of back wall of thorax, initial encounter Condition: Stable Instructions: ED Spasm Back No Trauma Follow-Up: Roxanna Joseph ARNP [Primary Care Provider] - Prescriptions: Cyclobenzaprine [Flexeril] 10 mg PO TID PRN #20 tablet PRN Reason: Spasms Hydrocodone/Acetaminophen [Hydrocodon-Acetaminophen 5-325] 1 - 2 each PO Q6H PRN #14 tablet PRN Reason: pain Forms: Activity restrictions Discharge Date/Time: 07/26/18 16:56
== END 2018-07-26 16:56 | disposition home or self-care (01) ==
LOC: ED 15:45
DX: S29.012A Strain of muscle and tendon of back wall of thorax, initial encounter (principal); X50.9XXA Other and unspecified overexertion or strenuous movements or postures, initial encounter; Y93.F9 Activity, other caregiving; Y99.0 Civilian activity done for income or pay
CPT/HCPCS: 1040M; 99283

== ENCOUNTER 2018-08-07 15:02 | Emergency (ER) | payer OTHER, MEDICAID ==
[2018-08-07 15:10] VITALS: BP 134/86
--- NOTE | 2018-08-07 15:38 | ED Physician Documentation ---
PD HPI BACK PAIN - Stated complaint Stated Complaint: BACK PX - Chief complaint Chief Complaint: Back Pain - History obtained from History obtained from: Patient - History of Present Illness Timing - onset: Other (She was seen about 2 weeks ago for upper back pain after a lifting injury at work. Got much better but over the last few days is flared up again with a burning pain in the area of the right shoulder blade. It is worse with a lot of motions and not too bad at rest. She feels like it flared up again because she started working full duty again.) Review of Systems Constitutional: denies: Fever, Chills Nose: denies: Rhinorrhea / runny nose Cardiac: denies: Chest pain / pressure, Palpitations Respiratory: denies: Dyspnea, Cough PD PAST MEDICAL HISTORY - Past Surgical History Past Surgical History: No - Present Medications Home Medications: Ambulatory Orders Medication Instructions Recorded Confirmed Cephalexin [Keflex] 500 mg PO Q6HR 10 Days capsule 12/01/15 Metronidazole [Flagyl] 500 mg PO BID 7 Days tablet 12/01/15 Ondansetron Odt [Zofran] 4 mg TL Q6H PRN #10 tablet 12/01/15 oxyCODONE/ACET 5/325 [Percocet 5 1 each PO Q4-6H PRN #15 tablet 12/01/15 mg/325 mg] Cyclobenzaprine [Flexeril] 10 mg PO TID PRN #20 tablet 07/26/18 Hydrocodone/Acetaminophen 1 - 2 each PO Q6H PRN #14 tablet 07/26/18 [Hydrocodon-Acetaminophen 5-325] Cyclobenzaprine [Flexeril] 10 mg PO TID PRN #20 tablet 08/07/18 Hydrocodone/Acetaminophen 1 - 2 each PO Q6H PRN #14 tablet 08/07/18 [Hydrocodon-Acetaminophen 5-325] Ibuprofen [Motrin] 800 mg PO Q8H PRN #30 tablet 08/07/18 - Allergies Allergies/Adverse Reactions: Allergies Allergy/AdvReac Type Severity Reaction Status Date / Time No Known Drug Allergies Allergy Verified 08/07/18 15:10 - Social History Does the pt smoke?: No Smoking Status: Never smoker Does the pt drink ETOH?: No Does the pt have substance abuse?: No - Immunizations Immunizations are current?: No PD ED PE NORMAL - Vitals Vital signs reviewed: Yes - General General: Alert and oriented X 3, No acute distress - Neck Neck: Supple, no meningeal sign, No bony TTP - Cardiac Cardiac: RRR, No murmur - Respiratory Respiratory: No respiratory distress, Clear bilaterally - Abdomen Abdomen: Non tender - Back Back: No spinal TTP, Other (Palpable tenderness and spasm to the right parathoracic musculature.) - Neuro Neuro: Alert and oriented X 3, Normal speech Results - Vitals Vitals: Vital Signs - 24 hr 08/07/18 15:07 Temperature 36.4 C L Heart Rate 101 H Respiratory 14 Rate Blood Pressure 134/86 H O2 Saturation 97 Oxygen O2 Source Room air Departure - Departure Disposition: Home, Self Care Clinical Impression: Strain of rhomboid muscle Qualifiers: Encounter type: initial encounter Qualified Code(s): S29.012A - Strain of muscle and tendon of back wall of thorax, initial encounter Condition: Good Record reviewed to determine appropriate education?: Yes Instructions: ED Spasm Back No Trauma Prescriptions: Cyclobenzaprine [Flexeril] 10 mg PO TID PRN #20 tablet PRN Reason: Spasms Hydrocodone/Acetaminophen [Hydrocodon-Acetaminophen 5-325] 1 - 2 each PO Q6H PRN #14 tablet PRN Reason: pain Ibuprofen [Motrin] 800 mg PO Q8H PRN #30 tablet PRN Reason: PAIN &/OR FEVER Comments: IF THIS BECOMES A PERSISTENT PROBLEM, TALK WITH ROSS [facility]INDS ABOUT PHYSICAL THERAPY. Your blood pressure was elevated today on check into the emergency department. This does not mean that you have hypertension, it is a common phenomenon to come to the emergency department and have elevated blood pressure. I recommend that you see your primary care physician within the week to have it rechecked when you are feeling better. Do not drink or drive while taking narcotic pain medication. Note that many narcotic pain relievers also contain Tylenol/acetaminophen. Please ensure that your total dose of acetaminophen from all sources does not exceed 3 g (3000 mg) per day. You may get constipated while on this medication. Take a stool softener such as Colace twice a day while you are on it. Also add an [id number] laxative such as senna or MiraLAX on any day that you do not have a bowel movement. If you received a narcotic pain medication or sedative while in the emergency department, do not drive for the next 24 hours. Forms: Activity restrictions
== END 2018-08-07 15:51 | disposition home or self-care (01) ==
LOC: ED 15:02
DX: S29.012A Strain of muscle and tendon of back wall of thorax, initial encounter (principal); X50.0XXA Overexertion from strenuous movement or load, initial encounter; Y99.0 Civilian activity done for income or pay; R03.0 Elevated blood-pressure reading, without diagnosis of hypertension
CPT/HCPCS: 99283

== ENCOUNTER 2018-08-13 11:20 | Emergency (ER) | payer MEDICAID ==
--- NOTE | 2018-08-13 12:21 | ED Physician Documentation ---
PD HPI BACK PAIN - Stated complaint Stated Complaint: BACK PX - Chief complaint Chief Complaint: Back Pain - History obtained from History obtained from: Patient - History of Present Illness Timing - onset: How many weeks ago (2) Timing - duration: Weeks (2) Timing - details: Abrupt onset (with lifting), Still present, Waxing and waning (improved some with NSAIDs and rest off work, but hurting more again with light duty even) Location: Upper, Right (scapular area) Quality: Pain, Sharp. No: Throbbing Associated symptoms: No: Fever, Weakness, Numbness Improves with: Rest Worsened by: Movement, Lifting, Palpation Contributing factors: Lifting Similar symptoms before: Has not had sx before Recently seen: Emergency Dept (2 prior visits with Rx nsaids and muscle relaxants. Patient says not improved.) Review of Systems Constitutional: denies: Fever, Chills Nose: denies: Rhinorrhea / runny nose, Congestion Throat: denies: Sore throat Respiratory: denies: Dyspnea, Cough GI: denies: Nausea, Vomiting Skin: denies: Rash, Lesions PD PAST MEDICAL HISTORY - Past Medical History Cardiovascular: None Respiratory: None Neuro: None Endocrine/Autoimmune: None - Past Surgical History Past Surgical History: No - Present Medications Home Medications: Ambulatory Orders Medication Instructions Recorded Confirmed Cephalexin [Keflex] 500 mg PO Q6HR 10 Days capsule 12/01/15 Metronidazole [Flagyl] 500 mg PO BID 7 Days tablet 12/01/15 Ondansetron Odt [Zofran] 4 mg TL Q6H PRN #10 tablet 12/01/15 oxyCODONE/ACET 5/325 [Percocet 5 1 each PO Q4-6H PRN #15 tablet 12/01/15 mg/325 mg] Cyclobenzaprine [Flexeril] 10 mg PO TID PRN #20 tablet 07/26/18 Hydrocodone/Acetaminophen 1 - 2 each PO Q6H PRN #14 tablet 07/26/18 [Hydrocodon-Acetaminophen 5-325] Cyclobenzaprine [Flexeril] 10 mg PO TID PRN #20 tablet 08/07/18 Hydrocodone/Acetaminophen 1 - 2 each PO Q6H PRN #14 tablet 08/07/18 [Hydrocodon-Acetaminophen 5-325] Ibuprofen [Motrin] 800 mg PO Q8H PRN #30 tablet 08/07/18 Dexamethasone [Decadron] 4 mg PO DAILY #5 tablet 08/13/18 Naproxen 500 mg PO BID #20 tablet 08/13/18 - Allergies Allergies/Adverse Reactions: Allergies Allergy/AdvReac Type Severity Reaction Status Date / Time No Known Drug Allergies Allergy Verified 08/07/18 15:10 - Social History Does the pt smoke?: No Smoking Status: Never smoker Does the pt drink ETOH?: No Does the pt have substance abuse?: No - Immunizations Immunizations are current?: No PD ED PE NORMAL - Vitals Vital signs reviewed: Yes - General General: Alert and oriented X 3, No acute distress, Well developed/nourished - Neck Neck: Supple, no meningeal sign, No adenopathy - Cardiac Cardiac: RRR, No murmur - Respiratory Respiratory: Clear bilaterally - Abdomen Abdomen: Soft, Non tender - Back Back: No spinal TTP (but is tender focally at right medial scapular area, without redness, rash. ) - Derm Derm: Normal color, Warm and dry, No rash - Neuro Neuro: No motor deficit, No sensory deficit Results - Vitals Vitals: Vital Signs - 24 hr 08/13/18 08/13/18 11:32 13:21 Temperature 36.6 C Heart Rate 102 H 74 Respiratory 18 16 Rate Blood Pressure 131/82 H 129/85 H O2 Saturation 98 100 Oxygen O2 Source Room air Procedures - General procedure General procedure: Trigger point injection with lidocaine and Kenalog. SKin cleansed with prep and 27g needle used without problems. No bleeding after. PD MEDICAL DECISION MAKING - ED course Complexity details: considered differential (focally tender at muscle. Can try trigger point injection and more time off work to rest. Can try chiropractic and massage as well. ), d/w patient Departure - Departure Disposition: Home, Self Care Clinical Impression: Thoracic back sprain Qualifiers: Encounter type: subsequent encounter Qualified Code(s): S23.9XXD - Sprain of unspecified parts of thorax, subsequent encounter Condition: Stable Record reviewed to determine appropriate education?: Yes Follow-Up: Roxanna Joseph ARNP [Primary Care Provider] - Prescriptions: Dexamethasone [Decadron] 4 mg PO DAILY #5 tablet Naproxen 500 mg PO BID #20 tablet Comments: Off work for 3 more days and then very light duty after that. In the next few days try to obtain a follow-up visit with your primary care and also you could seek massage your chronic care advocate and that I believe would be covered under the L&I number. These would be helpful in through that area as well. Change from ibuprofen to naproxen and add Decadron steroid anti-inflammatory. This is to complement the injection we did in the sore muscle. Forms: Activity restrictions Discharge Date/Time: 08/13/18 13:22
[2018-08-13] MEDS ORDERED: TRIAMCINOLONE 40 MG/ML VIAL IM STA (12:41)
[2018-08-13] MEDS ORDERED: NAPROXEN 250 MG TABLET PO STA (12:41)
[2018-08-13] MEDS ORDERED: ACETAMINOPHEN 325 MG TABLET PO STA (12:41)
[2018-08-13 13:22] VITALS: BP 129/85
== END 2018-08-13 13:22 | disposition home or self-care (01) ==
LOC: ED 11:20
DX: S23.9XXA Sprain of unspecified parts of thorax, initial encounter (principal); X50.0XXA Overexertion from strenuous movement or load, initial encounter; M54.6 Pain in thoracic spine
CPT/HCPCS: 20552; 99283; A9270

== ENCOUNTER 2018-08-17 10:33 | Emergency (ER) | payer MEDICAID ==
[2018-08-17 10:42] VITALS: BP 142/113
--- NOTE | 2018-08-17 11:24 | ED Physician Documentation ---
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 It is located underneath the right scapula. Has been seen here x4 for same. States has not been able to follow-up with a primary care provider or L&I provider. States that her symptoms are still present when using the arm. No numbness or tingling. Better with rest a nd worse with movement. Review of Systems Constitutional: denies: Fever GI: denies: Vomiting : denies: Unable to Void, Incontinent, Now EGA Musculoskeletal: denies: Neck pain, Back pain Neurologic: denies: Focal weakness, Numbness PD PAST MEDICAL HISTORY - Past Medical History Past Medical History: No Cardiovascular: None Respiratory: None Neuro: None Endocrine/Autoimmune: None - Past Surgical History Past Surgical History: No - Present Medications Home Medications: Ambulatory Orders Medication Instructions Recorded Confirmed Cephalexin [Keflex] 500 mg PO Q6HR 10 Days capsule 12/01/15 Metronidazole [Flagyl] 500 mg PO BID 7 Days tablet 12/01/15 Ondansetron Odt [Zofran] 4 mg TL Q6H PRN #10 tablet 12/01/15 oxyCODONE/ACET 5/325 [Percocet 5 1 each PO Q4-6H PRN #15 tablet 12/01/15 mg/325 mg] Cyclobenzaprine [Flexeril] 10 mg PO TID PRN #20 tablet 07/26/18 Hydrocodone/Acetaminophen 1 - 2 each PO Q6H PRN #14 tablet 07/26/18 [Hydrocodon-Acetaminophen 5-325] Cyclobenzaprine [Flexeril] 10 mg PO TID PRN #20 tablet 08/07/18 Hydrocodone/Acetaminophen 1 - 2 each PO Q6H PRN #14 tablet 08/07/18 [Hydrocodon-Acetaminophen 5-325] Ibuprofen [Motrin] 800 mg PO Q8H PRN #30 tablet 08/07/18 Dexamethasone [Decadron] 4 mg PO DAILY #5 tablet 01/01/19 Naproxen 500 mg PO BID #20 tablet 08/13/18 Cyclobenzaprine [Flexeril] 10 mg PO TID PRN #20 tablet 08/17/18 Meloxicam [Mobic] 15 mg PO DAILY PRN #20 tablet 08/17/18 - Allergies Allergies/Adverse Reactions: Allergies Allergy/AdvReac Type Severity Reaction Status Date / Time No Known Drug Allergies Allergy Verified 08/17/18 10:41 - Social History Does the pt smoke?: No Smoking Status: Never smoker Does the pt drink ETOH?: No Does the pt have substance abuse?: No - Immunizations Immunizations are current?: No PD ED PE NORMAL - Vitals Vital signs reviewed: Yes - General General: Alert and oriented X 3 - HEENT HEENT: PERRL, Moist mucous membranes - Neck Neck: Supple, no meningeal sign, No bony TTP - Cardiac Cardiac: RRR - Respiratory Respiratory: No respiratory distress, Clear bilaterally - Back Back: No spinal TTP (No midline tenderness to palpation or percussion. There is tenderness over the right rhomboid muscle. Pain with movement of the right arm, especially with active motion. Neurovascularly intact including the axillary nerve) - Derm Derm: Warm and dry - Neuro Neuro: Alert and oriented X 3, No motor deficit, No sensory deficit Results - Vitals Vitals: Vital Signs - 24 hr 08/17/18 10:40 Temperature 36.7 C Heart Rate 79 Respiratory 18 Rate Blood Pressure 142/113 H O2 Saturation 99 Oxygen O2 Source Room air PD MEDICAL DECISION MAKING - ED course Complexity details: reviewed results, re-evaluated patient, considered differential, d/w patient ED course: 28-year-old female presents to the emergency department with a continued rhomboid strain. She is well-appearing, nontoxic. Afebrile. She is requesting a note for work. Will allow her to return to work but not use the right arm. A list of labor and industry providers was given to the patient for follow-up. She may benefit from physical therapy. Patient counseled regarding signs and symptoms for which I believe and urgent re-evaluation would be necessary. Patient with good understanding of and agreement to plan and is comfortable going home at this time This document was made in part using voice recognition software. While efforts are made to proofread this document, sound alike and grammatical errors may occur. Departure - Departure Disposition: 01 Home, Self Care Clinical Impression: Rhomboid muscle strain Qualifiers: Encounter type: initial encounter Qualified Code(s): S29.012A - Strain of muscle and tendon of back wall of thorax, initial encounter Condition: Good Instructions: ED Neck Back Pain General Prescriptions: Cyclobenzaprine [Flexeril] 10 mg PO TID PRN #20 tablet PRN Reason: Spasms Meloxicam [Mobic] 15 mg PO DAILY PRN #20 tablet PRN Reason: pain Comments: You need to follow-up with an L and I provider for further care. A list was printed for you today. Wear the sling for the next 3 days. Forms: Activity restrictions Discharge Date/Time: 08/17/18 11:57
== END 2018-08-17 11:57 | disposition home or self-care (01) ==
LOC: ED 10:33
DX: S29.012A Strain of muscle and tendon of back wall of thorax, initial encounter (principal); X50.9XXA Other and unspecified overexertion or strenuous movements or postures, initial encounter; Y93.F2 Activity, caregiving, lifting; Y99.0 Civilian activity done for income or pay
CPT/HCPCS: 99283

== ENCOUNTER 2019-08-01 12:53 | Emergency (ER) | payer MEDICAID, OTHER ==
[2019-08-01 13:19] LABS: BILIRUBIN,URINE NEGATIVE (NEGATIVE); GLUCOSE, URINE (UA) NEGATIVE (NEGATIVE); KETONES,URINE (UA) NEGATIVE (NEGATIVE); LEUKOCYTE ESTERASE, URINE NEGATIVE (NEGATIVE); NITRITE,URINE NEGATIVE (NEGATIVE); OCCULT BLOOD,URINE TRACE-INTA (NEGATIVE); PROTEIN,URINE NEGATIVE (NEGATIVE); UROBILINOGEN,URINE 0.2 (NORMAL) E.U./dL (NORMAL)
[2019-08-01 13:21] LABS: CLARITY,URINE CLEAR (CLEAR); HCG UR QUAL NEGATIVE
--- NOTE | 2019-08-01 15:02 | ED Physician Documentation ---
PD HPI FEMALE - Stated complaint Stated Complaint: FEM - Chief complaint Chief Complaint: UTI - History obtained from History obtained from: Patient (2 days of urinary burning and frequency without flank pain, fevers. No discharge.) Review of Systems Constitutional: denies: Fever, Chills Cardiac: denies: Chest pain / pressure, Palpitations Respiratory: denies: Dyspnea, Cough PD PAST MEDICAL HISTORY - Past Medical History Cardiovascular: None Respiratory: None Neuro: None Endocrine/Autoimmune: None - Past Surgical History Past Surgical History: No - Present Medications Home Medications: Ambulatory Orders Medication Instructions Recorded Confirmed Cephalexin [Keflex] 500 mg PO Q6HR 10 Days capsule 12/01/15 Metronidazole [Flagyl] 500 mg PO BID 7 Days tablet 12/01/15 Ondansetron Odt [Zofran] 4 mg TL Q6H PRN #10 tablet 12/01/15 oxyCODONE/ACET 5/325 [Percocet 5 1 each PO Q4-6H PRN #15 tablet 12/01/15 mg/325 mg] Cyclobenzaprine [Flexeril] 10 mg PO TID PRN #20 tablet 07/26/18 Hydrocodone/Acetaminophen 1 - 2 each PO Q6H PRN #14 tablet 07/26/18 [Hydrocodon-Acetaminophen 5-325] Cyclobenzaprine [Flexeril] 10 mg PO TID PRN #20 tablet 08/07/18 Hydrocodone/Acetaminophen 1 - 2 each PO Q6H PRN #14 tablet 08/07/18 [Hydrocodon-Acetaminophen 5-325] Ibuprofen [Motrin] 800 mg PO Q8H PRN #30 tablet 08/07/18 Naproxen 500 mg PO BID #20 tablet 08/13/18 dexAMETHasone [Decadron] 4 mg PO DAILY #5 tablet 08/13/18 Cyclobenzaprine [Flexeril] 10 mg PO TID PRN #20 tablet 08/17/18 Meloxicam [Mobic] 15 mg PO DAILY PRN #20 tablet 08/17/18 Nitrofurantoin Monohyd/M-Cryst 100 mg PO BID #10 capsule 08/01/19 [Macrobid 100 mg Capsule] Phenazopyridine HCl [Pyridium] 200 mg PO TID PRN #6 tablet 08/01/19 - Allergies Allergies/Adverse Reactions: Allergies Allergy/AdvReac Type Severity Reaction Status Date / Time No Known Drug Allergies Allergy Verified 08/01/19 12:55 - Social History Does the pt smoke?: No Smoking Status: Never smoker Does the pt drink ETOH?: No Does the pt have substance abuse?: No - Immunizations Immunizations are current?: No PD ED PE NORMAL - Vitals Vital signs reviewed: Yes - General General: Alert and oriented X 3, No acute distress - Abdomen Abdomen: Soft, Non tender - Back Back: No CVA TTP - Neuro Neuro: Alert and oriented X 3, Normal speech Results - Vitals Vitals: Vital Signs - 24 hr 08/01/19 12:55 Temperature 36.5 C Heart Rate 95 Respiratory 16 Rate Blood Pressure 138/76 H O2 Saturation 99 Oxygen O2 Source Room air - Labs Labs: Laboratory Tests 08/01/19 12:05 Urine Color YELLOW Urine Clarity CLEAR Urine pH 6.0 Ur Specific [place] 1.025 Urine Protein NEGATIVE Urine Glucose (UA) NEGATIVE Urine Ketones NEGATIVE Urine Occult Blood TRACE-INTA Urine Nitrite NEGATIVE Urine Bilirubin NEGATIVE Urine Urobilinogen 0.2 (NORMAL) Ur Leukocyte Esterase NEGATIVE Ur Microscopic Review NOT INDICATED Urine Culture Comments NOT INDICATED Urine HCG, Qual NEGATIVE PD MEDICAL DECISION MAKING - ED course ED course: Symptoms are typical of cystitis and will treat as such Despite negative UA Departure - Departure Disposition: 01 Home, Self Care Clinical Impression: Cystitis Condition: Good Record reviewed to determine appropriate education?: Yes Instructions: ED UTI Cystitis Female Prescriptions: Nitrofurantoin Monohyd/M-Cryst [Macrobid 100 mg Capsule] 100 mg PO BID #10 capsule Phenazopyridine HCl [Pyridium] 200 mg PO TID PRN #6 tablet PRN Reason: dysuria Comments: If you develop flank pain, fevers, chills or generalized worsening or if you are not better in 2 to 3 days please return for reevaluation. Your blood pressure was elevated today on check into the emergency department. This does not mean that you have hypertension, it is a common phenomenon to come to the emergency department and have elevated blood pressure. I recommend that you see your primary care physician within the week to have it rechecked when you are feeling better.
[2019-08-01 15:06] VITALS: BP 134/82
== END 2019-08-01 15:06 | disposition home or self-care (01) ==
LOC: ED 12:53
DX: N30.90 Cystitis, unspecified without hematuria (principal); R03.0 Elevated blood-pressure reading, without diagnosis of hypertension
CPT/HCPCS: 81001; 81003; 81025; 87086; 99283

== ENCOUNTER 2019-09-24 22:15 | Emergency (ER) | payer MEDICAID ==
[2019-09-24 22:22] VITALS: BP 127/84
--- NOTE | 2019-09-24 22:33 | ED Physician Documentation ---
History of Present Illness - Stated complaint Stated Complaint: FEMALE - Chief complaint Chief Complaint: UTI - History obtained from History obtained from: Patient (the patient is a 29 y/o f who p/w dysuria and burning on urination. she denies any pelvic or abd pain or flank pain.denies fevers. patient reports urgency without hematuria, without pelvic pain, vaginal bleeding or discharge. reports was treated for UTI about a month ago. denies any hx of sti.) Review of Systems Ten Systems: 10 systems reviewed and negative Constitutional: reports: Reviewed and negative Eyes: reports: Reviewed and negative Ears: reports: Reviewed and negative Nose: reports: Reviewed and negative Throat: reports: Reviewed and negative Cardiac: reports: Reviewed and negative Respiratory: reports: Reviewed and negative GI: reports: Reviewed and negative : reports: Dysuria, Frequency Skin: reports: Reviewed and negative Musculoskeletal: reports: Reviewed and negative Neurologic: reports: Reviewed and negative Psychiatric: reports: Reviewed and negative Endocrine: reports: Reviewed and negative Immunocompromised: reports: Reviewed and negative PD PAST MEDICAL HISTORY - Past Medical History Cardiovascular: None Respiratory: None Neuro: None Endocrine/Autoimmune: None - Past Surgical History Past Surgical History: No - Present Medications Home Medications: Ambulatory Orders Medication Instructions Recorded Confirmed Cephalexin [Keflex] 500 mg PO Q6HR 10 Days capsule 12/01/15 Metronidazole [Flagyl] 500 mg PO BID 7 Days tablet 12/01/15 Ondansetron Odt [Zofran] 4 mg TL Q6H PRN #10 tablet 12/01/15 oxyCODONE/ACET 5/325 [Percocet 5 1 each PO Q4-6H PRN #15 tablet 12/01/15 mg/325 mg] Cyclobenzaprine [Flexeril] 10 mg PO TID PRN #20 tablet 07/26/18 Hydrocodone/Acetaminophen 1 - 2 each PO Q6H PRN #14 tablet 07/26/18 [Hydrocodon-Acetaminophen 5-325] Cyclobenzaprine [Flexeril] 10 mg PO TID PRN #20 tablet 08/07/18 Hydrocodone/Acetaminophen 1 - 2 each PO Q6H PRN #14 tablet 08/07/18 [Hydrocodon-Acetaminophen 5-325] Ibuprofen [Motrin] 800 mg PO Q8H PRN #30 tablet 08/07/18 Naproxen 500 mg PO BID #20 tablet 08/13/18 dexAMETHasone [Decadron] 4 mg PO DAILY #5 tablet 08/13/18 Cyclobenzaprine [Flexeril] 10 mg PO TID PRN #20 tablet 08/17/18 Meloxicam [Mobic] 15 mg PO DAILY PRN #20 tablet 08/17/18 Nitrofurantoin Monohyd/M-Cryst 100 mg PO BID #10 capsule 08/01/19 [Macrobid 100 mg Capsule] Phenazopyridine HCl [Pyridium] 200 mg PO TID PRN #6 tablet 08/01/19 Phenazopyridine [Pyridium] 100 mg PO TID 2 Days #5 tablet 09/24/19 - Allergies Allergies/Adverse Reactions: Allergies Allergy/AdvReac Type Severity Reaction Status Date / Time No Known Drug Allergies Allergy Verified 09/24/19 22:19 - Social History Does the pt smoke?: No Smoking Status: Never smoker Does the pt drink ETOH?: No Does the pt have substance abuse?: No - Immunizations Immunizations are current?: No PD ED PE NORMAL - Vitals Vital signs reviewed: Yes - General General: Alert and oriented X 3, No acute distress, Well developed/nourished - HEENT HEENT: Atraumatic, PERRL - Neck Neck: Supple, no meningeal sign - Cardiac Cardiac: RRR, No murmur, Strong equal pulses - Respiratory Respiratory: No respiratory distress, Clear bilaterally - Abdomen Abdomen: Normal bowel sounds, Soft, Non tender, Non distended, No organomegaly, Other (suprapubic tenderness to palpation.) - Female Female : Deferred - Rectal Rectal: Deferred - Back Back: No CVA TTP, No spinal TTP - Derm Derm: Normal color, Warm and dry, No rash - Extremities Extremities: No deformity - Neuro Neuro: Alert and oriented X 3 - Psych Psych: Normal mood, Normal affect Results - Vitals Vitals: Vital Signs - 24 hr 09/24/19 22:19 Temperature 36.6 C Heart Rate 87 Respiratory 14 Rate Blood Pressure 127/84 H O2 Saturation 99 Oxygen O2 Source Room air - Labs Labs: Laboratory Tests 09/24/19 09/24/19 22:30 22:30 Urine Color YELLOW Urine Clarity CLEAR Urine pH 5.5 Ur Specific [place] >=1.030 H >1.030 Urine Protein NEGATIVE Urine Glucose (UA) NEGATIVE Urine Ketones NEGATIVE Urine Occult Blood TRACE-INTA Urine Nitrite NEGATIVE Urine Bilirubin NEGATIVE Urine Urobilinogen 0.2 (NORMAL) Ur Leukocyte Esterase NEGATIVE Ur Microscopic Review NOT INDICATED Urine Culture Comments NOT INDICATED Urine HCG, Qual NEGATIVE Departure - Departure Disposition: 01 Home, Self Care Clinical Impression: Dysuria Condition: Good Instructions: ED Dysuria Uncertain Cause Follow-Up: Roxanna Joseph ARNP [Primary Care Provider] - Tomorrow Prescriptions: Phenazopyridine [Pyridium] 100 mg PO TID 2 Days #5 tablet
[2019-09-24 22:39] LABS: BILIRUBIN,URINE NEGATIVE (NEGATIVE); GLUCOSE, URINE (UA) NEGATIVE (NEGATIVE); KETONES,URINE (UA) NEGATIVE (NEGATIVE); LEUKOCYTE ESTERASE, URINE NEGATIVE (NEGATIVE); NITRITE,URINE NEGATIVE (NEGATIVE); OCCULT BLOOD,URINE TRACE-INTA (NEGATIVE); PH,URINE 5.5 PH (5.0-7.5); PROTEIN,URINE NEGATIVE (NEGATIVE); UROBILINOGEN,URINE 0.2 (NORMAL) E.U./dL (NORMAL)
[2019-09-24 22:40] LABS: CLARITY,URINE CLEAR (CLEAR); HCG UR QUAL NEGATIVE
[2019-09-24] MEDS ORDERED: PHENAZOPYRIDINE 100 MG TABLET PO STA (22:58)
== END 2019-09-24 23:06 | disposition home or self-care (01) ==
LOC: ED 22:15
DX: R30.0 Dysuria (principal); R35.0 Frequency of micturition; R39.15 Urgency of urination
CPT/HCPCS: 81003; 81025; 99283; A9270; 81001; 87086

== ENCOUNTER 2019-09-29 16:02 | Emergency (ER) | payer MEDICAID ==
[2019-09-29 16:32] LABS: BILIRUBIN,URINE NEGATIVE (NEGATIVE); GLUCOSE, URINE (UA) NEGATIVE (NEGATIVE); KETONES,URINE (UA) NEGATIVE (NEGATIVE); LEUKOCYTE ESTERASE, URINE NEGATIVE (NEGATIVE); NITRITE,URINE NEGATIVE (NEGATIVE); OCCULT BLOOD,URINE SMALL (NEGATIVE); PH,URINE 5.5 PH (5.0-7.5); PROTEIN,URINE NEGATIVE (NEGATIVE); UROBILINOGEN,URINE 0.2 (NORMAL) E.U./dL (NORMAL)
[2019-09-29 16:35] LABS: CLARITY,URINE CLEAR (CLEAR); HCG UR QUAL NEGATIVE
[2019-09-29 16:54] LABS: BACTERIA,URINE Rare /HPF (None Seen); MUCUS,URINE Marked Strands; SQUAMOUS EPITHELIAL CELL,UR MANY Squamous (<= Few)
--- NOTE | 2019-09-29 18:13 | ED Physician Documentation ---
PD HPI FEMALE - Stated complaint Stated Complaint: FEMALE - Chief complaint Chief Complaint: UTI - History obtained from History obtained from: Patient - History of Present Illness Timing - onset: How many weeks ago (1) Timing - duration: Weeks (1) Timing - details: Gradual onset, Still present, Waxing and waning Associated symptoms: Dysuria, Urinary frequency Contributing factors: No: Similar symptoms before: Diagnosis (UTI) Recently seen: Emergency Dept - Additional information Additional information: 29-year-old female has had a prior urinary tract infection in July of last year has developed symptoms again over this past weekend she was seen in the emergency department had a clear urinalysis 5 days ago she was placed on to Azo for 2 days she had improvement in her symptoms with this and when she stopped taking this her symptoms returned she has had severe symptoms now with frequency and urgency and dysuria. She denies any history of herpes she denies any trauma to the area. 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 HEENT: None Psych: None Musculoskeletal: None Derm: None - Past Surgical History Past Surgical History: No - Present Medications Home Medications: Ambulatory Orders Medication Instructions Recorded Confirmed Cephalexin [Keflex] 500 mg PO Q6HR 10 Days capsule 12/01/15 Metronidazole [Flagyl] 500 mg PO BID 7 Days tablet 12/01/15 Ondansetron Odt [Zofran] 4 mg TL Q6H PRN #10 tablet 12/01/15 oxyCODONE/ACET 5/325 [Percocet 5 1 each PO Q4-6H PRN #15 tablet 12/01/15 mg/325 mg] Cyclobenzaprine [Flexeril] 10 mg PO TID PRN #20 tablet 07/26/18 Hydrocodone/Acetaminophen 1 - 2 each PO Q6H PRN #14 tablet 07/26/18 [Hydrocodon-Acetaminophen 5-325] Cyclobenzaprine [Flexeril] 10 mg PO TID PRN #20 tablet 08/07/18 Hydrocodone/Acetaminophen 1 - 2 each PO Q6H PRN #14 tablet 08/07/18 [Hydrocodon-Acetaminophen 5-325] Ibuprofen [Motrin] 800 mg PO Q8H PRN #30 tablet 08/07/18 Naproxen 500 mg PO BID #20 tablet 08/13/18 dexAMETHasone [Decadron] 4 mg PO DAILY #5 tablet 08/13/18 Cyclobenzaprine [Flexeril] 10 mg PO TID PRN #20 tablet 08/17/18 Meloxicam [Mobic] 15 mg PO DAILY PRN #20 tablet 08/17/18 Nitrofurantoin Monohyd/M-Cryst 100 mg PO BID #10 capsule 08/01/19 [Macrobid 100 mg Capsule] Phenazopyridine HCl [Pyridium] 200 mg PO TID PRN #6 tablet 08/01/19 Phenazopyridine [Pyridium] 100 mg PO TID 2 Days #5 tablet 09/24/19 Nitrofurantoin [Macrobid] 100 mg PO BID #10 capsule 09/29/19 - Allergies Allergies/Adverse Reactions: Allergies Allergy/AdvReac Type Severity Reaction Status Date / Time No Known Drug Allergies Allergy Verified 09/29/19 16:10 - Social History Does the pt smoke?: No Smoking Status: Never smoker Does the pt drink ETOH?: No Does the pt have substance abuse?: No - Immunizations Immunizations are current?: No - POLST Patient has POLST: No PD ED PE NORMAL - Vitals Vital signs reviewed: Yes (hypertensive ) - General General: Alert and oriented X 3, No acute distress, Well developed/nourished - HEENT HEENT: Atraumatic, PERRL, EOMI - Respiratory Respiratory: No respiratory distress - Back Back: No CVA TTP, No spinal TTP - Derm Derm: Normal color, Warm and dry, No rash - Extremities Extremities: No deformity, No edema, No calf tenderness / cord - Neuro Neuro: Alert and oriented X 3, 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, No motor deficit, No sensory deficit, Normal speech Eye Opening: Spontaneous Motor: Obeys Commands Verbal: Oriented GCS Score: 15 - Psych Psych: Normal mood, Normal affect Results - Vitals Vitals: Vital Signs - 24 hr 09/29/19 16:11 Temperature 36.5 C Heart Rate 84 Respiratory 14 Rate Blood Pressure 127/82 H O2 Saturation 99 Oxygen O2 Source Room air - Labs Labs: Laboratory Tests 09/29/19 16:12 Urine Color YELLOW Urine Clarity CLEAR Urine pH 5.5 Ur Specific [place] >=1.030 H Urine Protein NEGATIVE Urine Glucose (UA) NEGATIVE Urine Ketones NEGATIVE Urine Occult Blood SMALL H Urine Nitrite NEGATIVE Urine Bilirubin NEGATIVE Urine Urobilinogen 0.2 (NORMAL) Ur Leukocyte Esterase NEGATIVE Urine RBC 6-10 H Urine WBC 0-3 Ur Squamous Epith Cells MANY Squamous H Urine Bacteria Rare Urine Mucus Marked Strands Ur Microscopic Review INDICATED Urine Culture Comments NOT INDICATED Urine HCG, Qual NEGATIVE PD MEDICAL DECISION MAKING - ED course Complexity details: considered differential, d/w patient ED course: 29-year-old female with recurrent urinary symptoms has another urine without white cells and scant bacteria. I am concerned about the possibility of interstitial cystitis and I have shared this with the patient. We will place her on a course of Macrobid and I will have her follow-up with urology in [place]. Departure - Departure Disposition: Home, Self Care Clinical Impression: Urinary tract infection Qualifiers: Urinary tract infection type: acute cystitis Hematuria presence: with hematuria Qualified Code(s): N30.01 - Acute cystitis with hematuria Condition: Stable Instructions: ED UTI Cystitis Female Follow-Up: Roxanna Joseph ARNP [Primary Care Provider] - Gilbert Lamas MD [Provider Admit Priv/Credential] - Prescriptions: Nitrofurantoin [Macrobid] 100 mg PO BID #10 capsule Comments: Today your urinalysis did not demonstrate the typical things found for infection. I am concerned about the possibility of a condition called interstitial cystitis and I would like you to follow-up with the urologist in [place]. Antibiotics have been helpful with this previously and you are having symptoms it is reasonable to take a course of antibiotic as well. Azo is available [id number] and will be helpful in controlling symptoms.
[2019-09-29 18:14] VITALS: BP 134/79
== END 2019-09-29 18:21 | disposition home or self-care (01) ==
LOC: ED 16:02
DX: N30.01 Acute cystitis with hematuria (principal)
CPT/HCPCS: 81001; 81003; 81025; 87086; 99283; 99284

== ENCOUNTER 2019-10-10 13:42 | Outpatient (CLI) | payer MEDICAID ==
[2019-10-10 19:21] LABS: BILIRUBIN,TOTAL 1.4 mg/dL (0.2-1.0); CALCIUM 9.1 mg/dL (8.5-10.3); CREATININE 0.6 mg/dL (0.4-1.0); TOTAL PROTEIN 7.9 g/dL (6.7-8.2)
== END 2019-10-10 23:59 | disposition home or self-care (01) ==
LOC: LAB.N 13:42
PROVIDERS: ATTEND Nurse Practitioner Gerontology
DX: E80.6 Other disorders of bilirubin metabolism (principal)
CPT/HCPCS: 36415; 80053

== ENCOUNTER 2019-10-24 12:19 | Outpatient (CLI) | payer MEDICAID ==
[2019-10-24 12:57] LABS: ALBUMIN 4.2 g/dL (3.2-5.5); ALBUMIN/GLOBULIN RATIO 1.1 (1.0-2.2); BILIRUBIN,TOTAL 1.1 mg/dL (0.2-1.0); CALCIUM 9.2 mg/dL (8.5-10.3); CREATININE 0.7 mg/dL (0.4-1.0); TOTAL PROTEIN 8.2 g/dL (6.7-8.2)
== END 2019-10-24 12:20 | disposition home or self-care (01) ==
LOC: LAB 12:19
PROVIDERS: ATTEND Nurse Practitioner Gerontology
DX: E80.6 Other disorders of bilirubin metabolism (principal)
CPT/HCPCS: 36415; 80053

== ENCOUNTER 2019-11-02 11:20 | Outpatient (CLI) | payer MEDICAID ==
--- NOTE | 2019-11-02 12:57 | Ultrasound Report ---
Reason: HYPERBILIRUBINEMIA Procedure Date: 11/02/2019 Accession Number: [id number] / [id number] Procedure: US - Abdomen Complete CPT Code: Final Report FULL RESULT: EXAM: ABDOMEN ULTRASOUND EXAM DATE: 11/02/2019 12:09 PM. CLINICAL HISTORY: HYPERBILIRUBINEMIA. COMPARISON: ABDOMEN COMPLETE 01/04/2018 9:27 AM. TECHNIQUE: Real-time scanning was performed with static images obtained. FINDINGS: Liver: Mildly inhomogeneous, increased echogenicity, suggesting diffuse fatty infiltration.No focal lesion. Liver measures 17.8 cm craniocaudally. Main portal vein flow: Hepatopetal. Gallbladder: Gallbladder wall thickness is normal.No gallstones.Sonographic Jade sign is absent, per technologist's notes. Biliary System: Common bile duct measures 4 mm. No intrahepatic ductal dilatation. Pancreas: Visualized portion is unremarkable. Kidneys: Right: 11.0 cm longitudinally. Normal echotexture.No hydronephrosis.No contour-deforming mass.No calculus. Left: 11.6 cm longitudinally. Normal echotexture.No hydronephrosis.No contour-deforming mass.No calculus. Spleen: 12.8 cm (378 cc). No focal lesion. Aorta and Inferior Vena Cava: Unremarkable. Other: No ascites. IMPRESSION: 1. Mildly enlarged, probably fatty liver. 2. Nonspecific mild splenomegaly. 3. Common bile duct is normal caliber. 4. No cholelithiasis or supporting ultrasound evidence of acute cholecystitis. RADIA
== END 2019-11-02 11:21 | disposition home or self-care (01) ==
LOC: DI 11:20
PROVIDERS: ATTEND Nurse Practitioner Gerontology
DX: R16.2 Hepatomegaly with splenomegaly, not elsewhere classified (principal)
CPT/HCPCS: 76700

== ENCOUNTER 2019-11-18 09:15 | Outpatient (CLI) | payer MEDICAID ==
--- NOTE | 2019-11-18 11:46 | CT Report ---
Reason: LUTS, BLADDER PAIN Procedure Date: 11/18/2019 Accession Number: [id number] / [id number] Procedure: CT - Abdomen/Pelvis WO CPT Code: Final Report FULL RESULT: EXAM: CT ABDOMEN AND PELVIS EXAM DATE: 11/18/2019 09:27 AM. CLINICAL HISTORY: Lower urinary tract symptoms, bladder pain. COMPARISONS: ABDOMEN COMPLETE 11/02/2019 11:22 AM ABDOMEN COMPLETE 01/04/2018 9:27 AM ABDOMEN/PELVIS W/O 12/01/2015 5:50 PM. TECHNIQUE: Routine helical CT imaging was performed through the abdomen and pelvis. IV contrast: None. Enteric contrast: No. Reconstructions: Coronal and sagittal. In accordance with CT protocol optimization, one or more of the following dose reduction techniques were utilized for this exam: automated exposure control, adjustment of mA and/or KV based on patient size, or use of iterative reconstructive technique. FINDINGS: Lung Bases: Unremarkable. Liver: Upper limits normal in size with right lobe 17.1 cm superior to inferior. No fatty change. No masses. Gallbladder/Bile Ducts: Unremarkable. Spleen: Upper limits normal in size measuring 13 cm longitudinally. No focal mass. Otherwise unremarkable. Pancreas: Unremarkable. Adrenal Glands: Unremarkable. Kidneys: No radiopaque stone. No masses or hydronephrosis. Ureters unremarkable. Peritoneal Cavity/Bowel: No free fluid, free air or adenopathy. No masses or acute inflammatory process. Pelvic Organs: Contracted but otherwise unremarkable urinary bladder. Uterus, cervix and vagina unremarkable. Adnexa unremarkable. Vasculature: No aneurysms or other significant abnormality. Bones: No significant abnormality. Other: None. IMPRESSION: 1. No kidney stones, ureter stones or urinary bladder stones. No hydronephrosis. No acute renal abnormality seen on noncontrast CT. 2. No acute abnormality otherwise noted on CT scan of abdomen and pelvis as detailed above. RADIA
== END 2019-11-18 09:16 | disposition home or self-care (01) ==
LOC: DI 09:15
PROVIDERS: ATTEND Urology
DX: R39.9 Unspecified symptoms and signs involving the genitourinary system (principal); R39.89 Other symptoms and signs involving the genitourinary system
CPT/HCPCS: 74176

== ENCOUNTER 2020-02-03 21:38 | Emergency (ER) | payer MEDICAID ==
[2020-02-03 22:06] LABS: BILIRUBIN,URINE NEGATIVE (NEGATIVE); GLUCOSE, URINE (UA) NEGATIVE (NEGATIVE); KETONES,URINE (UA) NEGATIVE (NEGATIVE); LEUKOCYTE ESTERASE, URINE SMALL (NEGATIVE); NITRITE,URINE POSITIVE (NEGATIVE); OCCULT BLOOD,URINE MODERATE (NEGATIVE); PH,URINE 5.5 PH (5.0-7.5); PROTEIN,URINE 30 mg/dL (NEGATIVE); UROBILINOGEN,URINE 0.2 (NORMAL) E.U./dL (NORMAL)
[2020-02-03 22:07] LABS: CLARITY,URINE HAZY (CLEAR)
[2020-02-03 22:14] LABS: SQUAMOUS EPITHELIAL CELL,UR FEW Squamous (<= Few)
[2020-02-03 22:15] LABS: BACTERIA,URINE Few /HPF (None Seen)
--- NOTE | 2020-02-03 22:36 | ED Physician Documentation ---
PD HPI FEMALE - Stated complaint Stated Complaint: FEM /BACK PX - Chief complaint Chief Complaint: UTI - History obtained from History obtained from: Patient - History of Present Illness Timing - onset: How many days ago (2-3) Timing - details: Abrupt onset Associated symptoms: Back pain, Pelvic pain, Dysuria, Urinary frequency. No: Fever, Abdominal pain, Vaginal bleeding Contributing factors: No: Review of Systems Constitutional: denies: Fever GI: denies: Abdominal Pain, Nausea, Vomiting : reports: Dysuria, Frequency. 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 : None HEENT: None Psych: None Musculoskeletal: None Derm: None - Past Surgical History Past Surgical History: No - Present Medications Home Medications: Ambulatory Orders Medication Instructions Recorded Confirmed Cephalexin [Keflex] 500 mg PO Q6HR 10 Days capsule 12/01/15 Ondansetron Odt [Zofran] 4 mg TL Q6H PRN #10 tablet 12/01/15 metroNIDAZOLE [Flagyl] 500 mg PO BID 7 Days tablet 12/01/15 oxyCODONE/ACET 5/325 [Percocet 5 1 each PO Q4-6H PRN #15 tablet 12/01/15 mg/325 mg] Cyclobenzaprine [Flexeril] 10 mg PO TID PRN #20 tablet 07/26/18 Hydrocodone/Acetaminophen 1 - 2 each PO Q6H PRN #14 tablet 07/26/18 [Hydrocodon-Acetaminophen 5-325] Cyclobenzaprine [Flexeril] 10 mg PO TID PRN #20 tablet 08/07/18 Hydrocodone/Acetaminophen 1 - 2 each PO Q6H PRN #14 tablet 08/07/18 [Hydrocodon-Acetaminophen 5-325] Ibuprofen [Motrin] 800 mg PO Q8H PRN #30 tablet 08/07/18 Naproxen 500 mg PO BID #20 tablet 08/13/18 dexAMETHasone [Decadron] 4 mg PO DAILY #5 tablet 08/13/18 Cyclobenzaprine [Flexeril] 10 mg PO TID PRN #20 tablet 08/17/18 Meloxicam [Mobic] 15 mg PO DAILY PRN #20 tablet 08/17/18 Nitrofurantoin Monohyd/M-Cryst 100 mg PO BID #10 capsule 08/01/19 [Macrobid 100 mg Capsule] Phenazopyridine HCl [Pyridium] 200 mg PO TID PRN #6 tablet 08/01/19 Phenazopyridine [Pyridium] 100 mg PO TID 2 Days #5 tablet 09/24/19 Nitrofurantoin [Macrobid] 100 mg PO BID #10 capsule 09/29/19 Nitrofurantoin Monohyd/M-Cryst 100 mg PO BID #10 capsule 02/03/20 [Macrobid 100 mg Capsule] Phenazopyridine HCl [Pyridium] 200 mg PO TID PRN #6 tablet 02/03/20 - Allergies Allergies/Adverse Reactions: Allergies Allergy/AdvReac Type Severity Reaction Status Date / Time No Known Drug Allergies Allergy Verified 09/29/19 16:10 - Social History Does the pt smoke?: No Smoking Status: Never smoker Does the pt drink ETOH?: No Does the pt have substance abuse?: No - Immunizations Immunizations are current?: No - POLST Patient has POLST: No PD ED PE NORMAL - Vitals Vital signs reviewed: Yes - General General: Alert and oriented X 3, No acute distress, Well developed/nourished - Abdomen Abdomen: Soft, Non tender - Back Back: No CVA TTP Results - Vitals Vitals: Vital Signs - 24 hr 02/03/20 02/03/20 21:47 23:27 Temperature 36.3 C L 36.6 C Heart Rate 102 H 78 Respiratory 16 17 Rate Blood Pressure 131/91 H 127/82 H O2 Saturation 98 99 Oxygen O2 Source Room air - Labs Labs: Laboratory Tests 02/03/20 21:58 Urine Color YELLOW Urine Clarity HAZY Urine pH 5.5 Ur Specific [place] 1.025 Urine Protein 30 H Urine Glucose (UA) NEGATIVE Urine Ketones NEGATIVE Urine Occult Blood MODERATE H Urine Nitrite POSITIVE H Urine Bilirubin NEGATIVE Urine Urobilinogen 0.2 (NORMAL) Ur Leukocyte Esterase SMALL H Urine RBC 6-10 H Urine WBC >25 H Ur Squamous Epith Cells FEW Squamous Urine Bacteria Few Ur Microscopic Review INDICATED Urine Culture Comments INDICATED PD MEDICAL DECISION MAKING - ED course Complexity details: reviewed old records, reviewed results, considered differential, d/w patient Departure - Departure Disposition: 01 Home, Self Care Clinical Impression: Urinary tract infection Condition: Good Instructions: ED UTI Cystitis Female Prescriptions: Nitrofurantoin Monohyd/M-Cryst [Macrobid 100 mg Capsule] 100 mg PO BID #10 capsule Phenazopyridine HCl [Pyridium] 200 mg PO TID PRN #6 tablet PRN Reason: dysuria Discharge Date/Time: 02/03/20 23:27
[2020-02-03] MEDS ORDERED: NITROFURANTOIN MACRO 100 MG CAPSULE PO STA (23:05)
[2020-02-03] MEDS ORDERED: PHENAZOPYRIDINE 100 MG TABLET PO STA (23:05)
[2020-02-03 23:28] VITALS: BP 127/82
== END 2020-02-03 23:27 | disposition home or self-care (01) ==
LOC: ED 21:38
DX: N39.0 Urinary tract infection, site not specified (principal)
CPT/HCPCS: 81001; 87086; 87181; 99283; A9270; 81003

== ENCOUNTER 2020-08-21 13:04 | Emergency (ER) | payer MEDICAID ==
[2020-08-21 13:33] LABS: BASOPHILS # (AUTO) 0.1 10^3/uL (0.0-0.1); BASOPHILS % (AUTO) 0.6 %; EOSINOPHILS # (AUTO) 0.2 10^3/uL (0.0-0.7); EOSINOPHILS % (AUTO) 2.2 %; HGB - HEMOGLOBIN 14.9 g/dL (12.0-16.0); LYMPHOCYTES # (AUTO) 1.6 10^3/uL (1.5-3.5); LYMPHOCYTES % (AUTO) 19.2 %; MEAN CORPUSCULAR HEMOGLOBIN 28.3 pg (27.0-31.0); MEAN CORPUSCULAR VOLUME 85.6 fL (81.0-99.0); MEAN PLATELET VOLUME 10.8 fL (7.9-10.8); MONOCYTES # (AUTO) 0.5 10^3/uL (0.0-1.0); MONOCYTES % (AUTO) 5.6 %; NEUTROPHILS % (AUTO) 72.2 %; PLT - PLATELET COUNT 287 10^3/uL (130-450); RED BLOOD COUNT 5.27 10^6/uL (4.20-5.40); RED CELL DISTRIBUTION WIDTH 12.1 % (12.0-15.0); WHITE BLOOD COUNT 8.3 x10^3/uL (4.8-10.8)
[2020-08-21 13:45] LABS: ALBUMIN 4.2 g/dL (3.2-5.5); BILIRUBIN,TOTAL 1.2 mg/dL (0.2-1.0); CALCIUM 9.2 mg/dL (8.5-10.3); CREATININE 0.7 mg/dL (0.4-1.0); TOTAL PROTEIN 8.6 g/dL (6.7-8.2)
--- NOTE | 2020-08-21 14:07 | ED Physician Documentation ---
History of Present Illness - Stated complaint Stated Complaint: STOMACH/BCK PX - Chief complaint Chief Complaint: Abd Pain - History obtained from History obtained from: Patient - History of Present Illness Timing: Last night Pain level max: 2 Pain level now: 1 - Additonal information Additional information: 30 year old female with diarrhea since last night. Patient states that she had a small amount of bleeding this morning with the diarrhea. Bright red blood. No fevers. No chills. No recent antibiotics. No travel. Nothing makes it better or worse. 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 HEENT: None Psych: None Musculoskeletal: None Derm: None - Past Surgical History Past Surgical History: No - Present Medications Home Medications: Ambulatory Orders Medication Instructions Recorded Confirmed Cephalexin [Keflex] 500 mg PO Q6HR 10 Days capsule 12/01/15 Ondansetron Odt [Zofran] 4 mg TL Q6H PRN #10 tablet 12/01/15 metroNIDAZOLE [Flagyl] 500 mg PO BID 7 Days tablet 12/01/15 oxyCODONE/ACET 5/325 [Percocet 5 1 each PO Q4-6H PRN #15 tablet 12/01/15 mg/325 mg] Cyclobenzaprine [Flexeril] 10 mg PO TID PRN #20 tablet 07/26/18 Hydrocodone/Acetaminophen 1 - 2 each PO Q6H PRN #14 tablet 07/26/18 [Hydrocodon-Acetaminophen 5-325] Cyclobenzaprine [Flexeril] 10 mg PO TID PRN #20 tablet 08/07/18 Hydrocodone/Acetaminophen 1 - 2 each PO Q6H PRN #14 tablet 08/07/18 [Hydrocodon-Acetaminophen 5-325] Ibuprofen [Motrin] 800 mg PO Q8H PRN #30 tablet 08/07/18 Naproxen 500 mg PO BID #20 tablet 08/13/18 dexAMETHasone [Decadron] 4 mg PO DAILY #5 tablet 08/13/18 Cyclobenzaprine [Flexeril] 10 mg PO TID PRN #20 tablet 08/17/18 Meloxicam [Mobic] 15 mg PO DAILY PRN #20 tablet 08/17/18 Nitrofurantoin Monohyd/M-Cryst 100 mg PO BID #10 capsule 08/01/19 [Macrobid 100 mg Capsule] Phenazopyridine HCl [Pyridium] 200 mg PO TID PRN #6 tablet 08/01/19 Phenazopyridine [Pyridium] 100 mg PO TID 2 Days #5 tablet 09/24/19 Nitrofurantoin [Macrobid] 100 mg PO BID #10 capsule 09/29/19 Nitrofurantoin Monohyd/M-Cryst 100 mg PO BID #10 capsule 02/03/20 [Macrobid 100 mg Capsule] Phenazopyridine HCl [Pyridium] 200 mg PO TID PRN #6 tablet 02/03/20 - Allergies Allergies/Adverse Reactions: Allergies Allergy/AdvReac Type Severity Reaction Status Date / Time No Known Drug Allergies Allergy Verified 08/21/20 13:07 - Social History Does the pt smoke?: No Smoking Status: Never smoker Does the pt drink ETOH?: No Does the pt have substance abuse?: No - Immunizations Immunizations are current?: No Immunizations: TDAP >10years/unknown - POLST Patient has POLST: No PD ED PE NORMAL - Vitals Vital signs reviewed: Yes - General General: Alert and oriented X 3, No acute distress - HEENT HEENT: Moist mucous membranes - Neck Neck: Supple, no meningeal sign - Abdomen Abdomen: Soft, Non distended, Other (mild TTP LLQ with no peritoneal signs) - Back Back: No CVA TTP, No spinal TTP - Derm Derm: Warm and dry - Neuro Neuro: Alert and oriented X 3 - Psych Psych: Normal mood, Normal affect Results - Vitals Vitals: Vital Signs - 24 hr 08/21/20 13:08 Temperature 36.9 C Heart Rate 82 Respiratory 18 Rate Blood Pressure 149/83 H O2 Saturation 97 Oxygen O2 Source Room air - Labs Labs: Laboratory Tests 08/21/20 08/21/20 08/21/20 13:25 13:25 13:26 WBC 8.3 RBC 5.27 Hgb 14.9 Hct 45.1 MCV 85.6 MCH 28.3 MCHC 33.0 RDW 12.1 Plt Count 287 MPV 10.8 Neut # (Auto) 6.0 Lymph # (Auto) 1.6 [place] # (Auto) 0.5 Eos # (Auto) 0.2 Baso # (Auto) 0.1 Absolute Nucleated RBC 0.00 Nucleated RBC % 0.0 Sodium Potassium Chloride Carbon Dioxide Anion Gap BUN Creatinine Estimated GFR (MDRD) Glucose Calcium Total Bilirubin AST ALT Alkaline Phosphatase Total Protein Albumin Globulin Albumin/Globulin Ratio Lipase Urine Color YELLOW Urine Clarity CLOUDY Urine pH 5.5 Ur Specific [place] >=1.030 H Urine Protein NEGATIVE Urine Glucose (UA) NEGATIVE Urine Ketones NEGATIVE Urine Occult Blood SMALL H Urine Nitrite NEGATIVE Urine Bilirubin NEGATIVE Urine Urobilinogen 0.2 (NORMAL) Ur Leukocyte Esterase NEGATIVE Urine RBC 0-5 Urine WBC 0-3 Ur Squamous Epith Cells RARE Squamous Urine Bacteria Moderate H Ur Microscopic Review INDICATED Urine Culture Comments INDICATED Urine HCG, Qual NEGATIVE 08/21/20 13:26 WBC RBC Hgb Hct MCV MCH MCHC RDW Plt Count MPV Neut # (Auto) Lymph # (Auto) [place] # (Auto) Eos # (Auto) Baso # (Auto) Absolute Nucleated RBC Nucleated RBC % Sodium 138 Potassium 4.0 Chloride 101 Carbon Dioxide 27 Anion Gap 10.0 BUN 10 Creatinine 0.7 Estimated GFR (MDRD) 100 Glucose 99 Calcium 9.2 Total Bilirubin 1.2 H AST 26 ALT 46 Alkaline Phosphatase 79 Total Protein 8.6 H Albumin 4.2 Globulin 4.4 H Albumin/Globulin Ratio 1.0 Lipase 23 Urine Color Urine Clarity Urine pH Ur Specific [place] Urine Protein Urine Glucose (UA) Urine Ketones Urine Occult Blood Urine Nitrite Urine Bilirubin Urine Urobilinogen Ur Leukocyte Esterase Urine RBC Urine WBC Ur Squamous Epith Cells Urine Bacteria Ur Microscopic Review Urine Culture Comments Urine HCG, Qual - Rads (name of study) CT abd/pelvis Radiology: Prelim report reviewed, EMP read contemporaneously, See rad report PD MEDICAL DECISION MAKING - ED course Complexity details: reviewed results, re-evaluated patient, considered di fferential, d/w patient ED course: 30-year-old female presents to the emergency room with diarrhea since yesterday. Small amount of blood in the stool today. No evidence of diverticulitis. No indication for antibiotics. Patient is well-appearing, nontoxic. Afebrile. No significant lab abnormalities. She was informed about the soft tissue mass in the inferior rectus muscle and the need for follow-up. These instructions were also included on her discharge paperwork. Patient counseled regarding signs and symptoms for which I believe and urgent re-evaluation would be necessary. Patient with good understanding of and agreement to plan and is comfortable going home at this time This document was made in part using voice recognition software. While efforts are made to proofread this document, sound alike and grammatical errors may occur. IMPRESSION: 1. No acute inflammatory process identified. No free fluid. 2. Enhancing mass in the right inferior rectus muscle measuring 3.3 cm. This could represent a desmoid or other soft tissue mass. Unlikely hematoma. -Recommend evaluation with ultrasound and ultrasound-guided biopsy. -MRI with IV contrast may be helpful for further imaging characterization. 3. No enlarged lymph nodes. Departure - Departure Disposition: 01 Home, Self Care Clinical Impression: Diarrhea Qualifiers: Diarrhea type: unspecified type Qualified Code(s): R19.7 - Diarrhea, unspecified Condition: Good Instructions: ED Diarrhea Viral Follow-Up: your,doctor in 1 week [Other] Comments: The diarrhea should improve over the next 2 days. You may still have a small amount of blood in the stool. Return if you worsen. You also need follow-up for the mass in your right inferior rectus muscle. The recommendations are below. This needs to be ordered by your doctor.
[2020-08-21 14:12] LABS: BILIRUBIN,URINE NEGATIVE (NEGATIVE); GLUCOSE, URINE (UA) NEGATIVE (NEGATIVE); KETONES,URINE (UA) NEGATIVE (NEGATIVE); LEUKOCYTE ESTERASE, URINE NEGATIVE (NEGATIVE); NITRITE,URINE NEGATIVE (NEGATIVE); OCCULT BLOOD,URINE SMALL (NEGATIVE); PH,URINE 5.5 PH (5.0-7.5); PROTEIN,URINE NEGATIVE (NEGATIVE); UROBILINOGEN,URINE 0.2 (NORMAL) E.U./dL (NORMAL)
[2020-08-21 14:15] LABS: CLARITY,URINE CLOUDY (CLEAR)
[2020-08-21 14:16] LABS: HCG UR QUAL NEGATIVE
[2020-08-21 14:24] LABS: BACTERIA,URINE Moderate /HPF (None Seen); RBC,URINE 0-5 /HPF (0-5); SQUAMOUS EPITHELIAL CELL,UR RARE Squamous (<= Few)
[2020-08-21] MEDS ORDERED: IOVERSOL 320 100 ML VIAL IVP ONE ×2 (14:25→14:39)
--- NOTE | 2020-08-21 14:58 | CT Report ---
PROCEDURE: Abdomen/Pelvis W INDICATIONS: LLQ abd pain, diarrhea, hematochezia CONTRAST: IV CONTRAST: Optiray 320 ml: 100 PO CONTRAST: *NO PO CONTRAST TECHNIQUE: After the administration of intravenous contrast, 5 mm thick sections acquired from the diaphragms to the symphysis. 5 mm thick coronal and sagittal reformats were acquired. For radiation dose reducti on, the following was used: automated exposure control, adjustment of mA and/or kV according to eligio ent size. COMPARISON: CT abdomen and pelvis 11/18/2019 12/01/2015. FINDINGS: Image quality: Excellent. ABDOMEN: Lung bases: Lung bases are clear. Heart size is normal. Solid organs: Liver and spleen are normal in size and enhancement. Gallbladder is unremarkable. Bi liary system is non dilated. Pancreas enhances normally. No adrenal nodules. Kidneys demonstrate n ormal size and enhancement, without hydronephrosis. Peritoneum and bowel: Stomach is not distended. No small bowel obstruction. No acute inflammatory pro cess seen. No free fluid or air. Nodes and vessels: No retroperitoneal or mesenteric adenopathy by size criteria. Aorta and inferior vena cava are normal in size. Miscellaneous: No ventral hernias. Right inferior rectus muscle enhancing mass measuring 3.3 x 2.5 c m, (). In retrospect this is previously seen on the prior exam measuring 2.7 x 1.7 cm on 11/18/2019 , and remotely not seen. PELVIS: Genitourinary: Bladder is decompressed. Tampon in the vagina. Uterus is unremarkable. No free fluid. Miscellaneous: No inguinal hernias or adenopathy. Bones: No suspicious bony lesions. No vertebral body compression fractures. IMPRESSION: 1. No acute inflammatory process identified. No free fluid. 2. Enhancing mass in the right inferior rectus muscle measuring 3.3 cm. This could represent a desmo id or other soft tissue mass. Unlikely hematoma. -Recommend evaluation with ultrasound and ultrasound-guided biopsy. -MRI with IV contrast may be helpful for further imaging characterization. 3. No enlarged lymph nodes. Reviewed by: Lisandro Otero MD on 08/21/2020 1:57 PM [facility] Approved by: Lisandro Otero MD on 08/21/2020 1:57 PM [email or web address]
[2020-08-21 15:25] VITALS: BP 115/60
--- NOTE | 2020-08-23 17:30 | ED Physician Documentation ---
ED Addendum - Addendum Addendum: 08/23/20 17:30 Urine culture was positive for E. coli. Patient prescribed Macrobid 100 mg p.o. twice daily x5 days.
--- OUTSIDE RECORDS SUMMARY | 2020-08-25 01:51 | EXTERNAL MEDICAL SUMMARY RPT | Continuity of Care Document ---
:1990 Demographics Phone Unavailable Preferred Language Romansh Marital Status Unknown Temple Affiliation Unknown Race Unknown Ethnic Group Unknown Author Organization [facility] Address [address] [id number] Phone Care Team Providers Name Role Phone Janeth BORGES, Unavailable Unavailable Problems date description facility 2020-08-23 00:00:00 Diarrhea [facility] Prim sugar Care Shireen 2020-08-23 00:00:00 Diarrhea, unspecified [facility] P rimary Care [facility] Allergies date description [facility] STATINS [facility] No Known Drug Allergies [facility] Results Social History date description facility [phone]
== END 2020-08-21 15:24 | disposition home or self-care (01) ==
LOC: ED 13:04
DX: R19.7 Diarrhea, unspecified (principal); K92.1 Melena; N39.0 Urinary tract infection, site not specified; B96.20 Unspecified Escherichia coli [E. coli] as the cause of diseases classified elsewhere; R19.00 Intra-abdominal and pelvic swelling, mass and lump, unspecified site
CPT/HCPCS: 36415; 74177; 80053; 81001; 81025; 83690; 85025; 87077; 87086; 87181; 99283; 99284; Q9967; 81003

== ENCOUNTER 2020-09-16 07:52 | Outpatient (CLI) | payer MEDICAID ==
--- NOTE | 2020-09-16 15:44 | Ultrasound Report ---
PROCEDURE: Abdomen Limited INDICATIONS: MUSCLE MASS TECHNIQUE: Real-time focused scanning was performed of the abdomen, with image documentation. COMPARISON: CT abdomen and pelvis 08/21/2020 FINDINGS: There is a 3.3 x 2.7 x 4.9 cm hypoechoic mass with irregular margins in the inferior right rectus muscle which corresponds to abnormality identified right previous CT scan. Doppler evaluation demonstrates vascularity within the lesion. IMPRESSION: 2.3 x 2.7 x 4.9 cm hypoechoic mass with irregular margins and internal vascularity corresponds to CT abnormality. Finding is suspicious for neoplastic process. Recommend biopsy for further evaluation if clinically indicated. Reviewed by: Nazanin Arzate MD, PhD on 09/16/2020 3:42 PM PST Approved by: Nazanin Arzate MD, PhD on 09/16/2020 3:42 PM PST Station ID: [id number]
== END 2020-09-16 07:53 | disposition home or self-care (01) ==
LOC: DI 07:52
PROVIDERS: ATTEND Nurse Practitioner
DX: M62.89 Other specified disorders of muscle (principal)

== ENCOUNTER 2020-12-27 13:02 | Outpatient (CLI) | payer MEDICAID | END 2020-12-27 13:03 | disposition home or self-care (01) | LOC: LAB 13:02 | PROVIDERS: ATTEND Obstetrics & Gynecology | DX: Z30.09 Encounter for other general counseling and advice on contraception (principal) | CPT/HCPCS: 36415; 84443 ==

== ENCOUNTER 2020-12-30 06:24 | Observation (INO) | payer MEDICAID ==
[~2020-12-30 06:24] MED LIST: ACETAMINOPHEN 1,000 MG/100 ML 100 ML IV ONE; CELECOXIB 100 MG CAPSULE PO ONE; GABAPENTIN 400 MG CAPSULE ONE; ceFAZolin 2 GM/50 ML 2 GM/50 ML BAG IV ONE
[2020-12-30] MEDS ORDERED: LACTATED RINGERS 1,000 ML IV ONE ×2 (06:41→12:19)
[2020-12-30] MEDS ORDERED: fentaNYL 100 MCG/2 ML VIAL ONE (06:52)
[2020-12-30] MEDS ORDERED: MIDAZOLAM 2 MG/2 ML VIAL ONE (06:52)
[2020-12-30 06:53] LABS: HCG UR QUAL NEGATIVE
[2020-12-30] MEDS ORDERED: ROCURONIUM 50 MG/5 ML VIAL ONE (06:53)
[2020-12-30] MEDS ORDERED: LIDOCAINE-MPF 2% 5 ML VIAL ONE (06:53)
[2020-12-30] MEDS ORDERED: PROPOFOL 200 MG/20 ML VIAL IVP ONE (06:53)
[2020-12-30 07:07] LABS: BASOPHILS # (AUTO) 0.1 10^3/uL (0.0-0.1); BASOPHILS % (AUTO) 0.7 %; EOSINOPHILS # (AUTO) 0.3 10^3/uL (0.0-0.7); EOSINOPHILS % (AUTO) 3.3 %; HCT - HEMATOCRIT 43.3 % (37.0-47.0); HGB - HEMOGLOBIN 14.5 g/dL (12.0-16.0); LYMPHOCYTES # (AUTO) 2.2 10^3/uL (1.5-3.5); MEAN CORPUSCULAR HEMOGLOBIN 28.2 pg (27.0-31.0); MEAN CORPUSCULAR HGB CONC 33.5 g/dL (32.0-36.0); MEAN CORPUSCULAR VOLUME 84.2 fL (81.0-99.0); MEAN PLATELET VOLUME 11.7 fL (7.9-10.8); MONOCYTES # (AUTO) 0.6 10^3/uL (0.0-1.0); MONOCYTES % (AUTO) 7.7 %; NEUTROPHILS # (AUTO) 5.1 10^3/uL (1.5-6.6); NEUTROPHILS % (AUTO) 61.1 %; PLT - PLATELET COUNT 244 10^3/uL (130-450); RED BLOOD COUNT 5.14 10^6/uL (4.20-5.40); RED CELL DISTRIBUTION WIDTH 12.3 % (12.0-15.0); WHITE BLOOD COUNT 8.3 x10^3/uL (4.8-10.8)
[2020-12-30] MEDS ORDERED: BUPIVACAINE 0.5%-EPI 1:200000 PF 30 ML VIAL ONE (07:16)
[2020-12-30] MEDS ORDERED: LIDOCAINE 1% 50 ML MDV ONE (07:16)
[2020-12-30] MEDS ORDERED: LEVONORGESTREL 20 MCG/24H IUD IY ONE (07:17)
[2020-12-30] MEDS ORDERED: HYDROmorphone 0.5 MG/0.5 ML SYRINGE IVP PRN (07:22)
[2020-12-30] MEDS ORDERED: MORPHINE 2 MG/ML CARPUJECT IVP PRN (07:22)
[2020-12-30] MEDS ORDERED: fentaNYL 100 MCG/2 ML VIAL IVP PRN (07:22)
[2020-12-30] MEDS ORDERED: ePHEDrine 50 MG/ML VIAL IVP PRN (07:22)
[2020-12-30] MEDS ORDERED: ONDANSETRON 4 MG/2 ML VIAL IVP PRN (07:22)
[2020-12-30] MEDS ORDERED: METOCLOPRAMIDE 10 MG/2 ML VIAL IVP PRN (07:22)
[2020-12-30] MEDS ORDERED: ATROPINE ABBOJECT 1 MG/10 ML SYRINGE IVP PRN (07:22)
[2020-12-30] MEDS ORDERED: NALOXONE 0.4 MG/ML VIAL IVP PRN (07:22)
--- NOTE | 2020-12-30 07:22 | ANESTHESIA ---
Pre-Anesthesia VS, & Labs - Diagnosis wound endometrioma, desires sterilization - Procedure B lap salpinjectomy, wound exploration Vital Signs: Temp Pulse Resp BP Pulse Ox 36.7 C 99 14 125/88 H 97 12/30/20 06:33 12/30/20 06:33 12/30/20 06:33 12/30/20 06:33 12/30/20 06:33 Height: 5 ft 7 in Weight (kg): 110 kg Body Mass Index: 38.0 BMI Classification: Obese - NPO >8 hours - Is Patient ?: No - Lab Results Current Lab Results: Laboratory Tests 12/30/20 06:53: WBC 8.3, RBC 5.14, Hgb 14.5, Hct 43.3, MCV 84.2, MCH 28.2, MCHC 33.5, RDW 12.3, Plt Count 244, MPV 11.7 H, Neut # (Auto) 5.1, Lymph # (Auto) 2.2, [place] # (Auto) 0.6, Eos # (Auto) 0.3, Baso # (Auto) 0.1, Absolute Nucleated RBC 0.00, Nucleated RBC % 0.0 Lab results reviewed: Yes Fish Bones: 12/30/20 06:53 Home Medications and Allergies Home Medications: Ambulatory Orders No Known Home Medications 12/21/20 No Known Home Medications 12/21/20 Allergies/Adverse Reactions: Allergies Allergy/AdvReac Type Severity Reaction Status Date / Time No Known Drug Allergies Allergy Verified 08/21/20 13:07 Anes History & Medical History - Anesthetic History Anesthesia Complications: reports: No previous complications Family history of Anesthesia Complications: Denies Family history of Malignant Hyperthermia: Denies - Medical History Cardiovascular: reports: None Pulmonary: reports: None Gastrointestinal: reports: None Urinary: reports: None Neuro: reports: None Musculoskeletal: reports: None Endocrine/Autoimmune: reports: None Blood Disorders: reports: None Skin: reports: None Smoking Status: Never smoker - Surgical History Gynecologic: reports: section Exam General: Alert, Oriented x3, Cooperative Dental: WNL Mouth Openin Fingerbreadth Neck Mobility: Normal Mallampati classification: II Thyromental Distance: 4-6 cm Respiratory: Lungs clear, Normal breath sounds, No respiratory distress Cardiovascular: Regular rate Neurological: Normal speech Mental/Cognitive Status: Alert/Oriented X3, Normal for patient Cognitive Status: Within normal limits Plan Anesthesia Type: General Consent for Procedure(s) Verified and Reviewed: Yes Code Status: Attempt Resuscitation ASA classification: 1-Healthy patient Is this case an emergency?: No
[2020-12-30] MEDS ORDERED: SILVER NITRATE APPLICATOR TOP ONE (07:25)
[2020-12-30] MEDS ORDERED: LIDOCAINE MPF 2%-EPI 1:200000 20 ML VIAL ONE (07:25)
[2020-12-30] MEDS ORDERED: BUPIVACAINE 0.5% PF 30 ML VIAL ONE (07:34)
[2020-12-30 07:51] LABS: B. PARAPERTUSSIS- RESP PCR PAN NOT DETECTED; B. PERTUSSIS- RESP PCR PANEL NOT DETECTED; C. PNEUMONIAE- RESP PCR PANEL NOT DETECTED; CORONAVIRUS 229E-RESP PCR NOT DETECTED; CORONAVIRUS HKU1-RESP PCR NOT DETECTED; CORONAVIRUS NL63-RESP PCR NOT DETECTED; CORONAVIRUS OC43-RESP PCR NOT DETECTED; HUMAN METAPNEUMOVIRUS NOT DETECTED; INFLUENZA A- RESP PCR PANEL NOT DETECTED; INFLUENZA B - RESP PCR PANEL NOT DETECTED; M. PNEUMONIAE- RESP PCR PANEL NOT DETECTED; PARAINFLUENZA VIRUS 1 NOT DETECTED; PARAINFLUENZA VIRUS 2 NOT DETECTED; PARAINFLUENZA VIRUS 3 NOT DETECTED; PARAINFLUENZA VIRUS 4 NOT DETECTED; RHINOVIRUS/ENTEROVIRUS NOT DETECTED; RSV- RESP PCR PANEL NOT DETECTED; SARS-CoV-2 -RESP PCR PANEL NOT DETECTED
[2020-12-30] MEDS ORDERED: LACTATED RINGERS 1,000 ML IV SCH (08:00)
[2020-12-30] MEDS ORDERED: ONDANSETRON 4 MG/2 ML VIAL ONE ×2 (08:30→13:08)
[2020-12-30] MEDS ORDERED: DEXAMETHASONE 4 MG/ML VIAL ONE (08:30)
[2020-12-30] MEDS ORDERED: HYDROmorphone 1 MG/ML CARPUJECT ONE (08:52)
[2020-12-30] MEDS ORDERED: BUPIVACAINE 0.5%-EPI 1:200000 PF 30 ML VIAL SUBQ ONE ×2 (08:55)
[2020-12-30] MEDS ORDERED: BUPIVACAINE 0.5% PF 30 ML VIAL INFIL ONE ×2 (09:32→12:14)
[2020-12-30] MEDS ORDERED: ePHEDrine 50 MG/ML VIAL IVP ONE (10:02)
[2020-12-30] MEDS ORDERED: ROPIVACAINE 0.5% PF 20 ML AMPULE ONE (11:00)
--- NOTE | 2020-12-30 12:33 | OPERATIVE REPORT ---
Operative Report - General Procedure Date: 12/30/20 Planned Procedure: Laparoscopic bilateral salpingectomy, placement of Mirena IUD, excision of subfascial endometrioma. Pre-Op Diagnosis: Undesired fertility, menorrhagia, Subfascial endometrioma below the rectus Procedure Performed: Laparoscopic bilateral salpingectomy lysis of intra-abdominal adhesions, placement of Mirena IUD, excision of subfascial endometrioma with fascial involvement and closure of fascial defect. - Procedure Note Primary Surgeon: Juan Miguel Hilton MD Secondary Surgeon: Garima Hickman MD Anesthesia Provider: Malcolm Lock CRNA Anesthesia Technique: General ET tube Pathology: Bilateral fallopian tubes, subfascial Endometrioma involving the right rectus fascia IV Fluids (mL): 1,600 Estimated Blood Loss (mL): 200 Urine Output (mL): 200 - Other Other Information/Narrative: Patient was taken to the operating room at which time she was identified both by name and date of . Following adequate anesthesia with endotracheal tube patient was placed in the dorsolithotomy position. Pelvic examination was performed which uterus determined to be anterior. The CAT scan was cross- referenced for the location of the subfascial hematoma.At this point she was prepped and draped in usual fashion timeout was performed which concerns were addressed. A speculum was then placed in vagina cervix visualized grasped with single-tooth tenaculum. 5 cc of 0.5% Marcaine was injected into each uterosacral ligament. Care was taken to avoid an injection into the vascular space. At this point the cervix was grasped with a single-tooth tenaculum with some difficulty was dilated initially. There was dilated up to 7 mm. The uterus is sounded to 7/2 cm and this point a HUMI manipulator was placed without difficulty. The speculum and the trip tenaculum were then removed. The sounding device operator's gloves were changed and following local anesthesia with 0.5% Marcaine with epinephrine injected in the subumbilical area the skin was incised in the vertical orientation and then a 5 mm trocar was placed under direct visualization. Care was taken avoid injury to bowel or bladder with this insertion. 2 additional ports were placed both the left and the right lower quadrants following local anesthesia with 0.5% Marcaine with epinephrine. At this point the pelvis is inspected there is evidence of an omental adhesion to the right anterior abdominal wall this was taken down with the LigaSure there is also some filmy adhesions noted on the uterus to the anterior abdominal wall these were also taken down with LigaSure without difficulty. At this point the right fallopian tube was grasped by the fimbria the LigaSure was utilized to cauterize and transect the mesosalpinx all the way to the cornu. Because of the angle of attack it was decided to transect the tube from the left side. The left tube was grasped at the cornua with the LigaSure cauterized and transected this was carried across the mesosalpinx all the way to the fimbriated end of this tube was then grasped at its narrow end and brought through the 5 mm trocar without difficulty. The LigaSure was then placed in the left port and the right cornual area was cauterized and transected. The tube was then brought through the 5 mm port. The mesosalpinx was inspected and no bleeding was noted. At this point the CO2 was allowed to escape from the abdominal cavity and the 5 mm ports were removed. The skin was then closed utilizing 4-0 Monocryl subcuticular and then Dermabond was placed. Attention was then placed back in the vagina the HUMI catheter was deflated and then removed a Mirena was then placed and the string Were trimmed at roughly 4 cm. At this point the CAT scan was rereviewed the mass was felt to be on the right side of the rectus muscle. It is measured roughly 7 mm from the umbilicus. The old Pfannenstiel incision was opened utilizing a #10 blade as well as electrocautery the fascia was incised transversely and carried laterally across the midline. The lower edges of the fascia was grasped with Waterford's and then the Rectus fascia Was dissected from the rectus muscle this was carried up for roughly 5 cm at which point the endometrioma was encountered. It was adhered very densely to the rectus fascia as well as being also involved in the rectus muscle. This was dissected both with blunt and sharp dissection bleeders were encountered treated with cautery as well as 2-0 Vicryl. The Anterior portion of the Mass was noted to involve the rectus fascia this was then divided and the prerectus fat was encountered the endometrioma was then excised in toto leaving a defect in the rectus fascia of roughly 7 cm by about [address] Garima Vargas was then consultative and she came to the OR at which time she evaluated the fascial defect. She felt that graft was not needed to be used so she closed primarily utilizing PDS her dictation should appear separately. Following closure of the rectus fascial defect The fascia as well as rectus muscle was inspected for bleeding electrocautery was used for further hemostasis. This was inspected and there was no evidence of any further bleeding because of the concerns of the remaining endometrial tissue this area was irrigated with copious amounts of sterile water. Once again the rectus muscle was inspected and no bleeding was noted so the fascia was closed in a looped 0 PDS. The subcutaneous tissue was closed utilizing 2-0 Vicryl and the incision itself was closed utilizing 4-0 Monocryl. A wound VAC was then placed over the incision good seal was noted. Patient tolerated procedure well and was taken care of in stable condition.
[2020-12-30] MEDS ORDERED: HYDROmorphone PCA 20MG/100ML 100 ML IV ONE (12:58)
[2020-12-30] MEDS: HYDROmorphone PCA 20MG/100ML IV PRN (13:49)
--- NOTE | 2020-12-30 14:56 | OPERATIVE REPORT ---
Operative Report - General Planned Procedure: Repair of fascial defect Pre-Op Diagnosis: Fascial defect after surgical excision of a large endometrioma Procedure Performed: Primary closure of fascial defect Post Op Diagnosis: Fascial defect after surgical excision of a large endometrioma - Procedure Note Primary Surgeon: Mitchel Secondary Surgeon: Yobani Anesthesia Provider: Ashvin Pathology: None Estimated Blood Loss (mL): 2 Indications: Rectus fascial defect after surgical excision of a large endometrioma Findings: 8 (medlal to lateral)x 4 cm (superior to inferior) defect in the rectus fascia to the right lateral side of the midline Complications: None apparent - Other Other Information/Narrative: Paola is a 30 year old lady brought to the operating room today for hyst erectomy and excision of a large abdominal wall endometrioma. I have been consulted during the procedure for a fascial defect that remains after excision of the endometrioma. As I enter the operating room, the patient is anesthetized on the table and Dr. Hilton is at the bedside. Time out was performed prior to the start of the procedure. Patient's medical issues and allergies are briefly reviewed with my self and Dr. Hilton. Inspection of the wound reveals a 4 x 8 cm defect of the posterior rectus fascia just inferior to the umbilicus and to the right lateral side of the mid line. This is the location of the historic Pfannenstiel incision to facilitate caesarean delivery. The defect is wider than tall and there is sufficient laxity in the abdominal wall to close it primarily. Dr. Hilton provided retraction and assistance. I performed this closure in an interrupted fashion with #1 PDS suture. The repair was checked and found to be complete. At this time my portion of the procedure was complete and I left the operation room where the procedure was completed by Dr. Hilton. As the trasverse portion of the Pfannenstiel incision remaned open and therefore the peritoneal cavity remained open, no instrument or sponge count was completed prior to my exit from the operating room.
--- NOTE | 2020-12-30 16:23 | ANESTHESIA POST OP EVALUATION ---
Anesthesia Post Eval - Post Anesthesia Eval Vitals: Last Vital Signs Temp 37.1 C 12/30/20 15:45 Pulse 107 H 12/30/20 15:45 Resp 20 12/30/20 15:45 BP 115/55 L 12/30/20 15:45 Pulse Ox 97 12/30/20 15:45 CV Function Including HR & BP: Stable Pain Control: Satisfactory Nausea & Vomiting: Negative Mental Status: Baseline Respiratory Status: Airway Patent Hydration Status: Satisfactory Anesthesia Complications: None
[2020-12-30] MEDS: ONDANSETRON 4 MG/2 ML VIAL IVP PRN (18:29)
[2020-12-31] MEDS: ONDANSETRON 4 MG/2 ML VIAL IVP PRN ×2 (01:14→12:05)
--- NOTE | 2020-12-31 12:50 | PROVIDER PROGRESS NOTE ---
Subjective - General Procedure Date: 12/30/20 Post Op Days: 1 Procedure Performed: Laproscopic bilateral salpingectomy, Excision rectas endometrioma. Mirema - Review of Systems General: positive: No symptoms (incisional pain) Objective - Patient Data Reviewed Vital Signs: Yes Vital Signs: Vital Signs x48h Temp Pulse Resp BP Pulse Ox 12/31/20 12:06 16 12/31/20 08:00 37.1 C 91 16 106/66 98 12/31/20 04:55 16 12/31/20 04:54 36.6 C 88 16 117/67 98 Weight: Weight 12/29/20 12/30/20 12/31/20 23:59 23:59 23:59 Weight (kg) 110 kg Intake & Output: Intake and Output Totals x24h 12/29/20 12/30/20 12/31/20 23:59 23:59 23:59 Intake Total 540 150 Output Total 1450 925 Balance -600 -435 - Lab Results Lab Results: 12/30/20 06:53 - Current Medications Current Medications: Current Medications Generic Name Dose Route Start Last Admin Trade Name Freq PRN Reason Stop Dose Admin Hydromorphone HCl 20 mg 12/30/20 12:20 12/30/20 13:49 Hydromorphone [employer] Technician 20mg/100ml IV 20 mg PRN PRN Administration Abdominal Pain Protocol Ondansetron HCl 4 mg 12/30/20 12:24 12/31/20 12:05 Ondansetron 4 Mg/2 Ml Vial IVP 4 mg Q6HR PRN Administration Nausea / Vomiting - Physical Exam Wound/Incisions: positive: Healing well (wound vac working) General Appearance: positive: No acute distress, Mild distress (Pain 7/10 pain simular to C/S pain) Respiratory: positive: Chest non-tender, No respiratory distress, Breath sounds nml Cardiovascular: positive: Regular rate & rhythm, No murmur, No gallop Abdomen: positive: Non-tender, No organomegaly, Nml bowel sounds Extremities: negative: Calf tenderness, Mirian's sign/cords Neurologic/Psychiatric: positive: Oriented x3 Impression/Plan - Problem List Problem List: POD #1 PAIN CONTROL PROBLEMS. CHANGE TO ORALS AMBUJLATE IS
[2020-12-31] MEDS: KETOROLAC 30 MG/ML VIAL IVP PRN ×3 (13:13→23:55)
[2020-12-31] MEDS: oxyCODONE 5 MG TABLET PO PRN ×3 (13:16→23:09)
[2020-12-31] MEDS: HYDROmorphone PCA 20MG/100ML IV PRN (22:21)
[2021-01-01] MEDS: oxyCODONE 5 MG TABLET PO PRN ×2 (04:50→09:37)
[2021-01-01 07:59] VITALS: BP 93/79
--- NOTE | 2021-01-01 08:15 | PROVIDER PROGRESS NOTE ---
Subjective - General Admit Date: 12/31/20 Procedure Date: 12/30/20 Post Op Days: 2 Procedure Performed: Laproscopic bilateral salpingectomy, Excision rectas endometrioma. Mirema - Review of Systems Wound/Incisions: positive: Healing well (wound vac working. some loss of seal.) General: positive: No symptoms (incisional pain. controled with oxycodone.) Gastrointestinal: positive: Flatus Objective - Patient Data Reviewed Vital Signs: Yes Vital Signs: Vital Signs x48h Temp Pulse Resp BP Pulse Ox 01/01/21 07:58 37.3 C 93 16 93/79 99 01/01/21 05:00 37.2 C 80 15 95/52 L 99 Weight: Weight 12/30/20 12/31/20 01/01/21 23:59 23:59 23:59 Weight (kg) 110 kg Intake & Output: Intake and Output Totals x24h 12/30/20 12/31/20 01/01/21 23:59 23:59 23:59 Intake Total 540 1650 Output Total 1450 925 Balance -910 725 - Lab Results Lab Results: 12/30/20 06:53 - Current Medications Current Medications: Current Medications Generic Name Dose Route Start Last Admin Trade Name Freq PRN Reason Stop Dose Admin Ketorolac Tromethamine 30 mg 12/31/20 12:43 12/31/20 23:55 Ketorolac 30 Mg/Ml Vial IVP 01/05/21 12:42 30 mg Q6HR PRN Administration PAIN Ondansetron HCl 4 mg 12/30/20 12:24 12/31/20 12:05 Ondansetron 4 Mg/2 Ml Vial IVP 4 mg Q6HR PRN Administration Nausea / Vomiting Oxycodone HCl 5 mg 12/31/20 12:42 01/01/21 04:50 Oxycodone 5 Mg Tablet PO 5 mg Q4HR PRN Administration PAIN - Physical Exam Wound/Incisions: positive: Dressing dry and intact General Appearance: positive: No acute distress, Alert Respiratory: positive: Chest non-tender, No respiratory distress, Breath sounds nml Cardiovascular: positive: Regular rate & rhythm, No murmur, No gallop Abdomen: positive: Non-tender, Nml bowel sounds, No distention Back: negative: CVA tenderness (R), CVA tenderness (L) Extremities: negative: Calf tenderness, Mirian's sign/cords Impression/Plan - Problem List Problem List: POD # 2 good progress good pain control eating regular diet. Send home discharge medications: Oxycodone 5 mg # 15 motrin 800 mg stool softener home supply Call sunday AM for followup appt
--- NOTE | 2021-01-01 08:17 | Discharge Plan ---
Discharge Plan Problem Reviewed?: Yes Disposition: 01 Home, Self Care Condition: Good Diet: Regular Activity Restrictions: no lifting+ Shower Restrictions: No Driving Restrictions: Yes (not while taking narcotics) No Smoking: If you smoke, Please STOP! Call for help.
[2021-01-01] MEDS: KETOROLAC 30 MG/ML VIAL IVP PRN (09:31)
== END 2021-01-01 11:01 | disposition home or self-care (01) ==
LOC: SDS 06:24 → MS2 12:50 → SDS 12-31 12:45 → MS2 12-31 12:46
PROVIDERS: ADMIT Obstetrics & Gynecology; ATTEND Obstetrics & Gynecology
PROC: 0WBF0ZZ Excision of Abdominal Wall, Open Approach (ICD-10-PCS; 2020-12-30)
PROC: 0UT74ZZ Resection of Bilateral Fallopian Tubes, Percutaneous Endoscopic Approach (ICD-10-PCS; principal; 2020-12-30 07:30)
PROC: 0UH97HZ Insertion of Contraceptive Device into Uterus, Via Natural or Artificial Opening (ICD-10-PCS; 2020-12-30 07:30)
DX: N80.8 Other endometriosis (principal); N92.0 Excessive and frequent menstruation with regular cycle; Z30.2 Encounter for sterilization; E66.9 Obesity, unspecified; Z68.38 Body mass index [BMI] 38.0-38.9, adult; Z30.430 Encounter for insertion of intrauterine contraceptive device
CPT/HCPCS: 0202U; 36415; 49203; 58300; 58661; 81025; 85025; 86850; 86900; 86901; 88302; 88305; A9270; G0378; J0131; J0690; J1170; J2765; J7120; J7298

== ENCOUNTER 2021-01-11 11:54 | Outpatient (CLI) | payer MEDICAID | END 2021-01-11 11:55 | disposition home or self-care (01) | LOC: LAB 11:54 | PROVIDERS: ATTEND Obstetrics & Gynecology | DX: N80.9 Endometriosis, unspecified (principal) | CPT/HCPCS: 36415; 84443 ==

== ENCOUNTER 2021-04-25 02:47 | Emergency (ER) | payer MEDICAID ==
[2021-04-25 02:56] VITALS: BP 140/82
[2021-04-25 03:14] LABS: BILIRUBIN,URINE NEGATIVE (NEGATIVE); GLUCOSE, URINE (UA) NEGATIVE (NEGATIVE); KETONES,URINE (UA) NEGATIVE (NEGATIVE); LEUKOCYTE ESTERASE, URINE SMALL (NEGATIVE); NITRITE,URINE NEGATIVE (NEGATIVE); OCCULT BLOOD,URINE SMALL (NEGATIVE); PH,URINE 5.5 PH (5.0-7.5); PROTEIN,URINE NEGATIVE (NEGATIVE); UROBILINOGEN,URINE 0.2 (NORMAL) E.U./dL (NORMAL)
[2021-04-25 03:15] LABS: CLARITY,URINE CLEAR (CLEAR)
--- NOTE | 2021-04-25 03:15 | ED Physician Documentation ---
PD HPI FEMALE - Stated complaint Stated Complaint: FEMALE - Chief complaint Chief Complaint: Wound - History obtained from History obtained from: Patient - History of Present Illness Timing - onset: How many weeks ago (1) Timing - details: Gradual onset Pain level max: 3 Associated symptoms: No: Fever, Pelvic pain, Vaginal discharge, Genital sore/lesion, Dysuria, Urinary frequency Contributing factors: No: - Additional information Additional information: c/o one week of vaginal pruritis. She has been using OTC medication (Vagisil) without adequate relief of the pruritis. Since yesterday, she has developed increasing swelling and tenderness of bilateral labia Review of Systems Constitutional: denies: Fever GI: reports: Reviewed and negative : denies: Dysuria, Frequency, Discharge, Vaginal bleeding, Now EGA Skin: denies: Rash PD PAST MEDICAL HISTORY - Past Medical History Past Medical History: No Cardiovascular: None Respiratory: None Neuro: None Endocrine/Autoimmune: None GI: None OUTPATIENT SCHEDULER: Endometriosis : None HEENT: None Psych: None Musculoskeletal: None Derm: None - Past Surgical History Past Surgical History: Yes /OUTPATIENT SCHEDULER: section, Other - Present Medications Home Medications: Ambulatory Orders Medication Instructions Recorded Confirmed Fluconazole 150 mg PO ONCE #1 tablet 04/25/21 - Allergies Allergies/Adverse Reactions: Allergies Allergy/AdvReac Type Severity Reaction Status Date / Time No Known Drug Allergies Allergy Verified 04/25/21 02:56 - Social History Does the pt smoke?: No Smoking Status: Never smoker Does the pt drink ETOH?: No Does the pt have substance abuse?: No - Immunizations Immunizations are current?: No Immunizations: TDAP >10years/unknown - POLST Patient has POLST: No PD ED PE NORMAL - Vitals Vital signs reviewed: Yes - General General: Alert and oriented X 3, No acute distress, Well developed/nourished - Abdomen Abdomen: Soft, Non tender PD ED PE EXPANDED - Female Female : Normal external, Vp Construction present, Other (no erythema, obvious swelling, or tenderness of vulva/labia. no masses, no fluctuance. external exam only). No: Skin lesions Results - Vitals Vitals: Oxygen O2 Source Room air - Labs Labs: Laboratory Tests 04/25/21 04/25/21 03:05 03:05 Urine Color YELLOW Urine Clarity CLEAR Urine pH 5.5 Ur Specific [place] >=1.030 H Urine Protein NEGATIVE Urine Glucose (UA) NEGATIVE Urine Ketones NEGATIVE Urine Occult Blood SMALL H Urine Nitrite NEGATIVE Urine Bilirubin NEGATIVE Urine Urobilinogen 0.2 (NORMAL) Ur Leukocyte Esterase SMALL H Urine RBC 0-5 Urine WBC 6-10 H Ur Squamous Epith Cells MOD Squamous H Urine Bacteria Few Urine Yeast PRESENT Ur Microscopic Review INDICATED Urine Culture Comments NOT INDICATED Urine HCG, Qual NEGATIVE PD MEDICAL DECISION MAKING - ED course Complexity details: considered differential, d/w patient ED course: no abnormal findings on external exam; lack of tenderness, erythema, obvious swelling, fluctuance would suggest against abscess or other bacterial infectious process. She denies discharge. Given her vaginal pruritis as the chief complaint and finding of yeast on UA, will trial PO diflucan to see if this clears symptoms (150mg in ED, rx for second dose to be taken in 72 hours) Departure - Departure Disposition: 01 Home, Self Care Clinical Impression: Vaginal candidiasis Condition: Good Instructions: ED Vaginal Infec Fungal Leonor Prescriptions: Fluconazole 150 mg PO ONCE #1 tablet Discharge Date/Time: 04/25/21 04:40
[2021-04-25 03:16] LABS: HCG UR QUAL NEGATIVE
[2021-04-25 03:22] LABS: BACTERIA,URINE Few /HPF (None Seen); RBC,URINE 0-5 /HPF (0-5); SQUAMOUS EPITHELIAL CELL,UR MOD Squamous (<= Few); YEAST,URINE PRESENT
[2021-04-25] MEDS ORDERED: FLUCONAZOLE 100 MG TABLET PO STA (04:21)
== END 2021-04-25 04:40 | disposition home or self-care (01) ==
LOC: ED 02:47
DX: B37.3 Candidiasis of vulva and vagina (principal)
CPT/HCPCS: 81001; 81025; 99283; A9270; 81003; 87086

== ENCOUNTER 2021-10-12 01:51 | Emergency (ER) | payer MEDICAID ==
[2021-10-12 02:32] LABS: BILIRUBIN,URINE NEGATIVE (NEGATIVE); GLUCOSE, URINE (UA) NEGATIVE (NEGATIVE); KETONES,URINE (UA) NEGATIVE (NEGATIVE); LEUKOCYTE ESTERASE, URINE SMALL (NEGATIVE); NITRITE,URINE POSITIVE (NEGATIVE); OCCULT BLOOD,URINE SMALL (NEGATIVE); PH,URINE 6.5 PH (5.0-7.5); PROTEIN,URINE TRACE mg/dL (NEGATIVE); UROBILINOGEN,URINE 2 E.U./dL (NORMAL)
[2021-10-12 02:35] LABS: CLARITY,URINE HAZY (CLEAR); HCG UR QUAL NEGATIVE
[2021-10-12 02:38] LABS: BACTERIA,URINE Few /HPF (None Seen); RBC,URINE 0-5 /HPF (0-5); SQUAMOUS EPITHELIAL CELL,UR FEW Squamous (<= Few); WBC,URINE >25 /HPF (0-5)
--- NOTE | 2021-10-12 03:37 | ED Physician Documentation ---
History of Present Illness - Stated complaint Stated Complaint: FEMALE , BODY ACHE, WEAKNESS, NAUSEA - Chief complaint Chief Complaint: Abd Pain - History obtained from History obtained from: Patient - History of Present Illness Timing: How many days ago (2-3) Pain level now: 6 Improved by: no ameliorating factors Worsened by: no exacerbating factors - Additonal information Additional information: I have a UTI (per patient) and symptoms are getting a lot worse despite antibiotics. Patient has had 1-2 days of burning dysuria, urinary frequency , sensation of incomplete voiding. She was evaluated in outpatient setting and rx bactrim. She has only had two doses thus far, but presents at this time due to feeling worse, now with generalized myalgias and nausea. Denies fever, denies vomiting. She is COVID vaccinated with boster. she is also taking azo (pyridium). She notes m ild/moderate pain across lower back Review of Systems Constitutional: reports: Myalgias. denies: Fever, Chills, Fatigue, Weight Loss, Sweats Respiratory: reports: Reviewed and negative GI: reports: Nausea. denies: Abdominal Pain, Vomiting : reports: Dysuria, Frequency. denies: Discharge, Now EGA Musculoskeletal: reports: Back pain PD PAST MEDICAL HISTORY - Past Medical History Past Medical History: Yes Cardiovascular: None Respiratory: None Neuro: None Endocrine/Autoimmune: None GI: None EXTERNAL AUDITOR: Endometriosis : None HEENT: None Psych: None Musculoskeletal: None Derm: None - Past Surgical History Past Surgical History: Yes /EXTERNAL AUDITOR: section, Other - Present Medications Home Medications: Ambulatory Orders Medication Instructions Recorded Confirmed Ciprofloxacin HCl 1 tablet PO BID 7 Days #14 tablet 10/12/21 Sulfamethox/Trimeth 800/160 1 tab PO BID 10/12/21 10/12/21 [Bactrim Ds] - Allergies Allergies/Adverse Reactions: Allergies Allergy/AdvReac Type Severity Reaction Status Date / Time No Known Drug Allergies Allergy Verified 10/12/21 02:19 - Social History Does the pt smoke?: No Smoking Status: Never smoker Does the pt drink ETOH?: No Does the pt have substance abuse?: No - Immunizations Immunizations are current?: No Immunizations: TDAP >10years/unknown - POLST Patient has POLST: No PD ED PE NORMAL - Vitals Vital signs reviewed: Yes - General General: Alert and oriented X 3, No acute distress, Well developed/nourished - Cardiac Cardiac: No murmur - Respiratory Respiratory: No respiratory distress, Clear bilaterally - Abdomen Abdomen: Soft, Non tender, Non distended - Derm Derm: No rash PD ED PE EXPANDED - Cardiac Cardiac: Tachy, Regular Rhythm - Back Back: CVA TTP right, CVA TTP left Results - Vitals Vitals: Vital Signs - 24 hr 10/12/21 10/12/21 10/12/21 02:15 03:11 05:00 Temperature 36.0 C L 37.4 C Heart Rate 121 H 76 71 Respiratory 16 18 18 Rate Blood Pressure 143/90 H 118/80 120/75 O2 Saturation 97 98 99 10/12/21 06:36 Temperature 37.3 C Heart Rate 69 Respiratory 18 Rate Blood Pressure 121/76 O2 Saturation 99 Oxygen O2 Source Room air - Labs Labs: Microbiology 10/12/21 02:20 Urine Culture - Preliminary Urine,Clean Catch CULTURE IN PROGRESS. RESULTS TO FOLLOW. Laboratory Tests 10/12/21 10/12/21 10/12/21 02:20 02:20 04:10 WBC 12.2 H RBC 4.56 Hgb 13.0 Hct 38.5 MCV 84.4 MCH 28.5 MCHC 33.8 RDW 12.6 Plt Count 228 MPV 10.7 Neut # (Auto) 9.8 H Lymph # (Auto) 1.3 L [place] # (Auto) 0.9 Eos # (Auto) 0.2 Baso # (Auto) 0.1 Absolute Nucleated RBC 0.00 Nucleated RBC % 0.0 Sodium Potassium Chloride Carbon Dioxide Anion Gap BUN Creatinine Estimated GFR (MDRD) Glucose Calcium Total Bilirubin AST ALT Alkaline Phosphatase Total Protein Albumin Globulin Albumin/Globulin Ratio Lipase Urine Color YELLOW Urine Clarity HAZY Urine pH 6.5 Ur Specific [place] 1.015 Urine Protein TRACE Urine Glucose (UA) NEGATIVE Urine Ketones NEGATIVE Urine Occult Blood SMALL H Urine Nitrite POSITIVE H Urine Bilirubin NEGATIVE Urine Urobilinogen 2 H Ur Leukocyte Esterase SMALL H Urine RBC 0-5 Urine WBC >25 H Ur Squamous Epith Cells FEW Squamous Urine Bacteria Few Ur Microscopic Review INDICATED Urine Culture Comments INDICATED Urine HCG, Qual NEGATIVE 10/12/21 04:10 WBC RBC Hgb Hct MCV MCH MCHC RDW Plt Count MPV Neut # (Auto) Lymph # (Auto) [place] # (Auto) Eos # (Auto) Baso # (Auto) Absolute Nucleated RBC Nucleated RBC % Sodium 134 L Potassium 3.9 Chloride 103 Carbon Dioxide 22 Anion Gap 9.0 BUN 10 Creatinine 0.9 Estimated GFR (MDRD) 74 L Glucose 113 H Calcium 8.5 Total Bilirubin 1.6 H AST 28 ALT 40 Alkaline Phosphatase 85 Total Protein 7.7 Albumin 3.8 Globulin 3.9 Albumin/Globulin Ratio 1.0 Lipase 22 Urine Color Urine Clarity Urine pH Ur Specific [place] Urine Protein Urine Glucose (UA) Urine Ketones Urine Occult Blood Urine Nitrite Urine Bilirubin Urine Urobilinogen Ur Leukocyte Esterase Urine RBC Urine WBC Ur Squamous Epith Cells Urine Bacteria Ur Microscopic Review Urine Culture Comments Urine HCG, Qual - Rads (name of study) CT A/P with IV contrast Radiology: Prelim report reviewed, See rad report PD MEDICAL DECISION MAKING - ED course Complexity details: reviewed results, re-evaluated patient, considered differential, d/w patient ED course: UA c/w UTI and CT A/P s/o left pyelonephritis. She is given IV rocephin in ED and IV toradol. Although it is early in the course of the bactrim rx, given that the infection appears to have progressed to pyelonephritis, will change to broader coverage with cipro rx. Results reviewed with patient, diagnosis and return precautions discussed. She is in NAD at time of d/c. Departure - Departure Disposition: 01 Home, Self Care Clinical Impression: Pyelonephritis Condition: Good Instructions: ED Kidney Infec Female Follow-Up: Juany Jean ARNP [Primary Care Provider] - Prescriptions: Ciprofloxacin HCl 1 tablet PO BID 7 Days #14 tablet Comments: The CT shows infection of the left kidney; this is very likely due to a urinary tract infection that has ascended up to the kidney. I am prescribing a different antibiotic than the one you are currently taking. Stop the bactrim and you are to start ciprofloxacin; the prescription for this antibiotic has been electronically submitted to [facility] in [place]. An incidental note on the CT scan is that your IUD is no longer in optimal position. 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 Discharge Date/Time: 10/12/21 06:41
[2021-10-12] MEDS ORDERED: KETOROLAC 30 MG/ML VIAL IVP STA (04:04)
[2021-10-12] MEDS ORDERED: cefTRIAXone 1 GM in SODIUM CHLORIDE 0.9% MINIBAG 100 ML IV STA (04:04)
[2021-10-12 04:16] LABS: BASOPHILS # (AUTO) 0.1 10^3/uL (0.0-0.1); BASOPHILS % (AUTO) 0.4 %; EOSINOPHILS # (AUTO) 0.2 10^3/uL (0.0-0.7); EOSINOPHILS % (AUTO) 1.4 %; HCT - HEMATOCRIT 38.5 % (37.0-47.0); LYMPHOCYTES # (AUTO) 1.3 10^3/uL (1.5-3.5); LYMPHOCYTES % (AUTO) 10.7 %; MEAN CORPUSCULAR HEMOGLOBIN 28.5 pg (27.0-31.0); MEAN CORPUSCULAR HGB CONC 33.8 g/dL (32.0-36.0); MEAN CORPUSCULAR VOLUME 84.4 fL (81.0-99.0); MEAN PLATELET VOLUME 10.7 fL (7.9-10.8); MONOCYTES # (AUTO) 0.9 10^3/uL (0.0-1.0); MONOCYTES % (AUTO) 7.4 %; NEUTROPHILS # (AUTO) 9.8 10^3/uL (1.5-6.6); NEUTROPHILS % (AUTO) 79.8 %; PLT - PLATELET COUNT 228 10^3/uL (130-450); RED BLOOD COUNT 4.56 10^6/uL (4.20-5.40); RED CELL DISTRIBUTION WIDTH 12.6 % (12.0-15.0); WHITE BLOOD COUNT 12.2 x10^3/uL (4.8-10.8)
[2021-10-12] MEDS ORDERED: cefTRIAXone 1 GM VIAL ONE (04:22)
[2021-10-12 04:30] LABS: ALBUMIN 3.8 g/dL (3.2-5.5); BILIRUBIN,TOTAL 1.6 mg/dL (0.2-1.0); CALCIUM 8.5 mg/dL (8.5-10.3); CREATININE 0.9 mg/dL (0.4-1.0); POTASSIUM 3.9 mmol/L (3.5-5.0); TOTAL PROTEIN 7.7 g/dL (6.7-8.2)
[2021-10-12] MEDS ORDERED: IOVERSOL 320 100 ML VIAL IVP ONE (05:14)
[2021-10-12 06:38] VITALS: BP 121/76
--- NOTE | 2021-10-12 08:30 | CT Report ---
PROCEDURE: Abdomen/Pelvis W INDICATIONS: abd. pain, tenderness CONTRAST: IV CONTRAST: Optiray 320 ml: 100 PO CONTRAST: *NO PO CONTRAST TECHNIQUE: After the administration of IV contrast, 5 mm thick sections acquired from the diaphragms to the symp hysis. 5 mm thick coronal and sagittal reformats were acquired. For radiation dose reduction, the f ollowing was used: automated exposure control, adjustment of mA and/or kV according to patient size. COMPARISON: CT abdomen and pelvis with contrast, 08/21/2020. Ultrasound abdomen limited, 09/16/2020. FINDINGS: Image quality: Excellent. ABDOMEN: Lung bases: Lung bases are clear. Heart size is normal. Solid organs: Liver and spleen are normal in size and enhancement. Gallbladder is normal. Biliary system is non dilated. Pancreas enhances normally. No adrenal nodules. Kidneys demonstrate normal size without hydronephrosis. There is focal area of decreased enhancement and mild perinephric stranding the superior pole of the left kidney, suspicious for pyelonephritis. Peritoneum and bowel: Bowel loops demonstrate normal wall thickness and caliber. No free fluid or a ir. Nodes and vessels: No retroperitoneal or mesenteric adenopathy by size criteria. Aorta and inferior vena cava are normal in size. Miscellaneous: No ventral hernias. There is a enhancing mass in the right anterior abdominal wall i nvolving the right rectus abdominous muscle measuring 2.1 cm AP, 4.3 cm transverse and 3.0 cm cephalo caudal. When compared to the last examination dated 08/21/2020, it appears unchanged in size. PELVIS: Genitourinary: Uterus is normal. There is an IUD. A 1.2 cm enhancing nodule is seen in the right ova ry, likely a corpus luteum. Left ovary is normal. Bladder wall thickness is normal. Miscellaneous: No inguinal hernias or adenopathy. Bones: No suspicious bony lesions. No vertebral body compression fractures. IMPRESSION: 1. Suspect focal pyelonephritis involving the superior pole of the left kidney. 2. A 2.1 x 4.3 x 3.0 cm mass involving the right rectus abdominis muscle. It appears unchanged in siz e since 08/21/2020. Differential diagnoses include benign versus low-grade malignant neoplasm. Recomm end ultrasound-guided biopsy. 3. A 1.2 cm corpus luteal cyst in the right ovary. No significant discrepancy with the preliminary interpretation in regards to acute findings. Please n ote Impression #2 regarding the right rectus abdominis mass was not mentioned on the preliminary inte rpretation. This mass was previously described and recommended for biopsy. If biopsy was reportedly p erformed, please correlate with histology. Reviewed by: Wilmar Burns MD on 10/12/2021 8:29 AM PST Approved by: Wilmar Burns MD on 10/12/2021 8:29 AM PST Station ID: [id number]
== END 2021-10-12 06:41 | disposition home or self-care (01) ==
LOC: ED 01:51
DX: N12 Tubulo-interstitial nephritis, not specified as acute or chronic (principal)
CPT/HCPCS: 36415; 74177; 80053; 81001; 81025; 83690; 85025; 87086; 96365; 96375; 99284; Q9967; 81003

== ENCOUNTER 2021-10-21 09:47 | Outpatient (CLI) | payer MEDICAID ==
[2021-10-21 11:58] LABS: BASOPHILS % (AUTO) 0.5 %; EOSINOPHILS # (AUTO) 0.3 10^3/uL (0.0-0.7); EOSINOPHILS % (AUTO) 3.2 %; HCT - HEMATOCRIT 42.9 % (37.0-47.0); HGB - HEMOGLOBIN 14.2 g/dL (12.0-16.0); LYMPHOCYTES # (AUTO) 1.7 10^3/uL (1.5-3.5); LYMPHOCYTES % (AUTO) 21.5 %; MEAN CORPUSCULAR HEMOGLOBIN 28.1 pg (27.0-31.0); MEAN CORPUSCULAR HGB CONC 33.1 g/dL (32.0-36.0); MEAN CORPUSCULAR VOLUME 84.8 fL (81.0-99.0); MEAN PLATELET VOLUME 10.2 fL (7.9-10.8); MONOCYTES # (AUTO) 0.5 10^3/uL (0.0-1.0); MONOCYTES % (AUTO) 5.8 %; NEUTROPHILS # (AUTO) 5.4 10^3/uL (1.5-6.6); NEUTROPHILS % (AUTO) 68.7 %; PLT - PLATELET COUNT 341 10^3/uL (130-450); RED BLOOD COUNT 5.06 10^6/uL (4.20-5.40); RED CELL DISTRIBUTION WIDTH 12.3 % (12.0-15.0); WHITE BLOOD COUNT 7.8 x10^3/uL (4.8-10.8)
[2021-10-21 12:06] LABS: ESTIMATED AVERAGE GLUCOSE 100 mg/dL (70-100); HEMOGLOBIN A1c% 5.1 % (4.27-6.07)
[2021-10-21 12:20] LABS: ALKALINE PHOSPHATASE 80 IU/L (42-121); ALT ALANINE AMINOTRANSFERASE 38 IU/L (10-60); AMYLASE 44 U/L (28-100); AST ASPARTATE AMINOTRANSFERASE 18 IU/L (10-42); BILIRUBIN,TOTAL 0.9 mg/dL (0.2-1.0); BUN - BLOOD UREA NITROGEN 9 mg/dL (6-20); CALCIUM 8.8 mg/dL (8.5-10.3); CARBON DIOXIDE - CO2 27 mmol/L (21-32); CHLORIDE 101 mmol/L (101-111); CHOL/HDL RATIO 5.7 (<4.4); CHOLESTEROL 159 mg/dL; CREATININE 0.7 mg/dL (0.4-1.0); GFR - MDRD 99 (>89); GLUCOSE 94 mg/dL (70-100); HDL CHOLESTEROL 28 mg/dL; LDL CHOLESTEROL,CALCULATED 117 mg/dL; LDL/HDL RATIO 4.2 (<4.4); LIPASE 24 U/L (22-51); SODIUM 137 mmol/L (135-145); TOTAL PROTEIN 8.2 g/dL (6.7-8.2); TRIGLYCERIDES 71 mg/dL; VLDL CHOLESTEROL 14 mg/dL
[2021-10-21 12:30] LABS: THYROID STIMULATING HORMONE 1.13 uIU/mL (0.34-5.60)
--- NOTE | 2021-10-21 15:42 | Ultrasound Report ---
PROCEDURE: Abdomen Complete INDICATIONS: ENDOMETRIOSIS, LLQ ABD PAIN, FATTY LIVER TECHNIQUE: Real-time scanning was performed of the abdominal and retroperitoneal organs, with image documentatio n. COMPARISON: None. FINDINGS: Liver: Liver is normal in size. Diffuse increased liver parenchymal echotexture is seen, no discrete hepatic lesion.. Gallbladder: There is no gallstone. No gallbladder wall thickening or pericholecystic fluid. No sonog raphic Jade's sign. Biliary ducts: Intrahepatic bile ducts are non-dilated. Extrahepatic bile duct caliber measures 5.3 mm. Normal is 6-7 mm or less in diameter, or 10 mm or less post-cholecystectomy. Pancreas: Visualized portions of the pancreas are sonographically normal. Spleen: Spleen measures up to 12.1 cm in length and is in the upper limits of normal. No discrete spl enic lesion. Kidneys: Kidneys are normal in size and echotexture. Right kidney measures 11.1 cm long; left kidne y measures 11.7 cm long. No hydronephrosis or nephrolithiasis. No solid masses. Aorta: Visualized aorta is normal in caliber at less than 3 cm. Iliacs: Proximal common iliac arteries are normal in caliber at less than 2.5 cm. IVC: Intrahepatic inferior vena cava is patent. Miscellaneous: No free abdominal fluid. IMPRESSION: 1. Hepatic steatosis, no discrete hepatic lesion. 2. Normal-appearing gallbladder. No biliary ductal dilatation. 3. Borderline splenomegaly, no discrete splenic lesion. Reviewed by: Manoj Ibanez MD on 10/21/2021 3:40 PM PST Approved by: Manoj Ibanez MD on 10/21/2021 3:40 PM PST Station ID: [id number]
--- NOTE | 2021-10-21 17:05 | Ultrasound Report ---
PROCEDURE: Pelvic w/Transvaginal INDICATIONS: ENDOMETRIOSIS, LLQ ABD PAIN, FATTY LIVER TECHNIQUE: Real-time scanning was performed of the pelvic organs, with image documentation. Additional endovagi nal scanning was necessary due to incomplete visualization of the adnexal and endometrial structures by transabdominal scanning. COMPARISON: None. FINDINGS: Transabdominal scanning: Limited scanning through the kidneys shows no hydronephrosis. No pathologi c free abdominal or pelvic fluid. Endovaginal scanning: Uterus: Uterus is normal in size at 9.6 x 5.0 x 6.7 cm. The endometrium measures 12.6 mm in combine d thickness. The IUD is located within the cervix. One of the arms of the IUD extends to the lateral wall of the left lower uterine segment. It is unclear whether it remains within the myometrium or ma y extend to the serosal surface. Ovaries: The right ovary measures 2.6 x 1.3 x 2.0 cm and the left ovary measures 2.4 x 1.5 x 1.7 cm. IMPRESSION: 1. Malpositioned IUD. The IUD is located within the cervix as opposed to in the endometrial cavity as expected. Additionally, one of the arms of the IUD extends to the lateral margin of the myometrium o f the left lower uterine segment raising the suspicion for perforation of the serosal surface. Consid er characterization with pelvic CT or pelvic MRI. Reviewed by: Garima Palacios MD on 10/21/2021 5:04 PM PST Approved by: Garima Palacios MD on 10/21/2021 5:04 PM PST Station ID: [id number]
== END 2021-10-21 09:48 | disposition home or self-care (01) ==
LOC: DI 09:47
PROVIDERS: ATTEND Nurse Practitioner
DX: N80.9 Endometriosis, unspecified (principal); R10.32 Left lower quadrant pain; K76.0 Fatty (change of) liver, not elsewhere classified; R16.1 Splenomegaly, not elsewhere classified; T83.89XA Other specified complication of genitourinary prosthetic devices, implants and grafts, initial encounter; Z13.220 Encounter for screening for lipoid disorders; E66.01 Morbid (severe) obesity due to excess calories; E03.9 Hypothyroidism, unspecified
CPT/HCPCS: 36415; 80053; 80061; 82150; 83036; 83690; 83721; 84443; 85025

== ENCOUNTER 2022-01-20 08:00 | Outpatient (CLI) | payer MEDICAID | END 2022-01-20 23:59 | disposition home or self-care (01) | LOC: LAB.N 08:00 | PROVIDERS: ATTEND Physician Assistant Medical | DX: R10.2 Pelvic and perineal pain (principal) | CPT/HCPCS: 87086 ==

== ENCOUNTER 2022-04-20 07:16 | Outpatient (CLI) | payer MEDICAID ==
--- NOTE | 2022-04-20 13:58 | Ultrasound Report ---
PROCEDURE: Pelvic w/Transvaginal INDICATIONS: PELVIC PAIN, ABD PAIN TECHNIQUE: Real-time scanning was performed of the pelvic organs, with image documentation. Additional endovagi nal scanning was necessary due to incomplete visualization of the adnexal and endometrial structures by transabdominal scanning. COMPARISON: Pelvic ultrasound 10/21/2021. FINDINGS: Uterus: Uterus is anteverted and normal in size at 9.4 x 4.9 x 5.4 cm. The myometrium is homogeneou s. The endometrium measures 12 mm in combined thickness. No focal endometrial lesion or abnormal en dometrial vascularity visualized. Ovaries: The right ovary measures 2.8 x 1.6 x 2.3 cm, with a calculated ovarian volume of 5 cc. The left ovary measures 3.0 x 1.6 x 1.8 cm, with a calculated ovarian volume of 5 cc. The ovaries have an unremarkable transabdominal sonographic appearance. Ovaries are not visualized transvaginally. Les s than 12 follicles can be seen in each ovary. No adnexal masses are seen. Other: No pathologic free abdominal or pelvic fluid. IMPRESSION: Unremarkable pelvic ultrasound. Reviewed by: Tyson Escobar MD on 04/20/2022 1:56 PM PDT Approved by: Tyson Escobar MD on 04/20/2022 1:56 PM PDT Station ID: [id number]
--- NOTE | 2022-04-20 17:01 | Ultrasound Report ---
PROCEDURE: Abdomen Complete INDICATIONS: PELVIC PAIN, ABD PAIN TECHNIQUE: Real-time scanning was performed of the abdominal and retroperitoneal organs, with image documentatio n. COMPARISON: Ultrasound abdomen, 10/21/2021. CT abdomen and pelvis without, 12/01/2015. FINDINGS: Liver: Liver is normal in size and demonstrates diffusely increased echotexture. Gallbladder: Call bladder is normal. No gallstones, gallbladder wall thickening, pericholecystic flui d collection or sonographic Jade sign. Biliary ducts: Intrahepatic bile ducts are non-dilated. Extrahepatic bile duct caliber measures 3.7 mm. Normal is 6-7 mm or less in diameter, or 10 mm or less post-cholecystectomy. Pancreas: Visualized portions of the pancreas are sonographically normal. Spleen: Spleen is normal in size and homogeneous in echotexture. Kidneys: Kidneys are normal in size and echotexture. Right kidney measures 10.3 cm long; left kidne y measures 11.7 cm long. No hydronephrosis or nephrolithiasis. No solid masses. Aorta: Visualized aorta is normal in caliber at less than 3 cm. Iliacs: Proximal common iliac arteries are obscured by overlying bowel gas. IVC: Intrahepatic inferior vena cava is patent. Miscellaneous: No free abdominal fluid. IMPRESSION: 1. Diffuse increased hepatic echotexture, most likely secondary to hepatic fatty infiltration. Other hepatocellular disease could have a similar sonographic appearance. Please correlate with liver funct ion tests. Reviewed by: Wilmar Burns MD on 04/20/2022 5:00 PM PDT Approved by: Wilmar Burns MD on 04/20/2022 5:00 PM PDT Station ID: [id number]
== END 2022-04-20 07:17 | disposition home or self-care (01) ==
LOC: DI 07:16
PROVIDERS: ATTEND Nurse Practitioner
DX: R10.9 Unspecified abdominal pain (principal); R10.2 Pelvic and perineal pain

== ENCOUNTER 2022-05-03 16:16 | Emergency (ER) | payer MEDICAID ==
--- NOTE | 2022-05-03 17:42 | XRAY Report ---
PROCEDURE: Chest 1 View X-Ray INDICATIONS: covid, cough, chest pain TECHNIQUE: One view of the chest was acquired. COMPARISON: None FINDINGS: Surgical changes and devices: None. Lungs and pleura: No pleural effusions or pneumothorax. Lungs are clear. Mediastinum: Mediastinal contours appear normal. Heart size is normal. Bones and chest wall: No suspicious bony lesions. Overlying soft tissues appear unremarkable. IMPRESSION: No acute cardiopulmonary findings Reviewed by: Julian Pearce MD on 05/03/2022 4:41 PM AKDT Approved by: Julian Pearce MD on 05/03/2022 4:41 PM AKDT Station ID: [id number]
[2022-05-03] MEDS ORDERED: PSEUDOEPHEDRINE 30 MG TABLET PO STA (18:39)
[2022-05-03] MEDS ORDERED: BENZONATATE 100 MG CAPSULE PO STA (18:39)
--- NOTE | 2022-05-03 18:42 | ED Physician Documentation ---
PD HPI URI - Stated complaint Stated Complaint: COVID +, CHEST PAIN - Chief complaint Chief Complaint: Resp - History obtained from History obtained from: Patient - History of Present Illness Timing - onset: How many days ago (5) Timing duration: Days (5) Timing details: Gradual onset Pain level max: 5 Pain level now: 5 Associated symptoms: Ear pain, Nasal congestion, Rhinorrhea, Sinus pain, Productive cough, Chest pain (only with coughing). No: Fever, Chills, Sweats Contributing factors: Sick contact (son sick with same) Improves by: Rest Worsened by: Activity - Additional information Additional information: 31-year-old female recently tested positive for COVID. She is vaccinated. She is complaining of sinus pain and pressure. Right ear pain and chest pain with coughing. Denies any possibility of . She is not breast-feeding. 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: No Smoking Status: Never smoker Does the pt drink ETOH?: No Does the pt have substance abuse?: No - Immunizations Immunizations are current?: No Immunizations: TDAP >10years/unknown - POLST Patient has POLST: No PD ED PE NORMAL - Vitals Vital signs reviewed: Yes - General General: Alert and oriented X 3, No acute distress - HEENT HEENT: PERRL, Ears normal, Moist mucous membranes, Pharynx benign - Neck Neck: Supple, no meningeal sign - Cardiac Cardiac: RRR, Strong equal pulses - Respiratory Respiratory: No respiratory distress, Clear bilaterally - Derm Derm: Warm and dry, No rash - Neuro Neuro: Alert and oriented X 3 - Psych Psych: Normal mood, Normal affect Results - Vitals Vitals: Vital Signs - 24 hr 05/03/22 05/03/22 16:31 18:47 Temperature 36.5 C Heart Rate 104 H 88 Respiratory 18 16 Rate Blood Pressure 135/87 H 137/78 H O2 Saturation 98 99 Oxygen O2 Source Room air - EKG (time done) 1637 Rate: Rate (enter#) (95) Rhythm: NSR [place]: Normal Intervals: Normal CT QRS: Normal Ischemia: Normal ST segments - Rads (name of study) cxr Radiology: Final report received, EMP read contemporaneously, See rad report (no acute abnormality) PD MEDICAL DECISION MAKING - ED course Complexity details: considered differential, d/w patient ED course: Patient is very well-appearing, nontoxic. Afebrile. No hypoxia. No respiratory distress. Will place on decongestants and cough medication for home. We did discuss antiviral medication as she is on day 5 of illness, patient declines this. Patient counseled regarding signs and symptoms for which I believe and urgent re-evaluation would be necessary. Patient with good understanding of and agreement to plan and is comfortable going home at this time This document was made in part using voice recognition software. While efforts are made to proofread this document, sound alike and grammatical errors may occur. Departure - Departure Disposition: 01 Home, Self Care Clinical Impression: COVID Condition: Good Instructions: ED URI Viral Follow-Up: Juany Jean ARNP [Primary Care Provider] - As Needed Prescriptions: Benzonatate [Tessalon] 200 mg PO TID PRN #30 cap PRN Reason: Cough Cetirizine HCl/Pseudoephedrine [Zyrtec-D Tablet] 1 each PO BID PRN #30 ea PRN Reason: nasal congestion Comments: Your prescriptions were sent to [facility] in [place]. Please follow-up with your doctor for further care. Please return if you worsen. Discharge Date/Time: 05/03/22 18:48
[2022-05-03 18:47] VITALS: BP 137/78
== END 2022-05-03 18:48 | disposition home or self-care (01) ==
LOC: ED 16:16
DX: U07.1 COVID-19 (principal)
CPT/HCPCS: 71045; 93005; 99282; 99283; A9270

== ENCOUNTER 2022-05-05 10:49 | Outpatient (CLI) | payer MEDICAID ==
[2022-05-05] MEDS ORDERED: DIATRIZOATE MEGLU/DIATRIZO SOD 30 ML BOTTLE PO ONE ×2 (11:14→14:08)
--- NOTE | 2022-05-06 11:55 | CT Report ---
PROCEDURE: Abdomen/Pelvis W INDICATIONS: ABDOMINAL PAIN CONTRAST: IV CONTRAST: Optiray 320 ml: 100 PO CONTRAST: Redi-Cat ml30 TECHNIQUE: After the administration of oral and intravenous contrast, 5 mm thick sections acquired from the diap hragms to the symphysis. 5 mm thick coronal and sagittal reformats were acquired. For radiation dos e reduction, the following was used: automated exposure control, adjustment of mA and/or kV accordin g to patient size. COMPARISON: CT abdomen and pelvis with, 10/12/2021, 08/21/2020. FINDINGS: Image quality: Excellent. ABDOMEN: Lung bases: Bibasilar subpleural densities are most likely atelectasis. Heart size is normal. Solid organs: Mild hepatic steatosis. Liver and spleen are normal in size and enhancement. Gallblad kendall is normal. Biliary system is non dilated. Pancreas enhances normally. No adrenal nodules. Kid neys demonstrate normal size and enhancement, without hydronephrosis. Peritoneum and bowel: Bowel loops demonstrate normal wall thickness and caliber. No free fluid or a ir. Nodes and vessels: No retroperitoneal or mesenteric adenopathy by size criteria. Aorta and inferior vena cava are normal in size. Miscellaneous: There is a 3.1 x 5.3 x 3.4 cm lobulated enhancing mass superficial to the right rectu s abdominous muscle. No ventral hernias. PELVIS: Genitourinary: Bladder wall thickness is normal. Uterus and ovaries are grossly normal. No mass in the cul-de-sac or adnexa. No free fluid in pelvis. Miscellaneous: No inguinal hernias or adenopathy. Bones: No suspicious bony lesions. No vertebral body compression fractures. IMPRESSION: 1. Persistent enhancing mass in the right lower anterior abdominal wall. If clinically indicated, the mass can be biopsied under ultrasound guidance. 2. No acute intra-abdominal or pelvic process. Reviewed by: Wilmar Burns MD on 05/06/2022 11:54 AM PDT Approved by: Wilmar Burns MD on 05/06/2022 11:54 AM PDT Station ID: [id number]
== END 2022-05-05 10:50 | disposition home or self-care (01) ==
LOC: DI 10:49
PROVIDERS: ATTEND Nurse Practitioner
DX: R19.00 Intra-abdominal and pelvic swelling, mass and lump, unspecified site (principal)
CPT/HCPCS: 74177; Q9963; Q9967

== ENCOUNTER 2022-07-31 10:18 | Day surgery (SDC) | payer MEDICAID ==
[2022-07-31] MEDS ORDERED: GABAPENTIN 400 MG CAPSULE ONE (10:22)
[2022-07-31] MEDS ORDERED: ACETAMINOPHEN 500 MG TABLET PO ONE (10:23)
[2022-07-31] MEDS ORDERED: CEFAZOLIN 2G/50ML 0.9% NS 2 GM/50 ML BAG IV ONE (10:23)
[2022-07-31] MEDS ORDERED: CELECOXIB 100 MG CAPSULE PO ONE (10:23)
[2022-07-31] MEDS ORDERED: LACTATED RINGERS 1,000 ML IV ONE ×2 (10:29→14:11)
[2022-07-31 10:39] LABS: HCG UR QUAL NEGATIVE
[2022-07-31] MEDS ORDERED: LIDOCAINE MPF 2%-EPI 1:200000 20 ML VIAL ONE (10:46)
[2022-07-31] MEDS ORDERED: BUPIVACAINE 0.5% PF 30 ML VIAL ONE (10:46)
--- NOTE | 2022-07-31 11:03 | ANESTHESIA ---
Pre-Anesthesia VS, & Labs - Diagnosis recurrent endometrioma - Procedure excision of endometrioma Vital Signs: Temp Pulse Resp BP Pulse Ox O2 Flow Rate 36.3 C L 89 16 123/82 H 99 0 07/31/22 10:30 07/31/22 10:30 07/31/22 10:30 07/31/22 10:30 07/31/22 10:30 07/31/22 10:30 Height: 5 ft 7 in Weight (kg): 110 kg Body Mass Index: 38.0 BMI Classification: Obese - NPO >8 hours - Is Patient ?: No Home Medications and Allergies Home Medications: Ambulatory Orders No Known Home Medications 07/21/22 No Known Home Medications 07/21/22 Allergies/Adverse Reactions: Allergies Allergy/AdvReac Type Severity Reaction Status Date / Time No Known Drug Allergies Allergy Verified 05/03/22 16:35 Anes History & Medical History - Anesthetic History Anesthesia Complications: reports: Post-Operative Nausea/Vomiting - Medical History Cardiovascular: reports: None Pulmonary: reports: None Gastrointestinal: reports: None Urinary: reports: Other Neuro: reports: None Musculoskeletal: reports: None Endocrine/Autoimmune: reports: None Blood Disorders: reports: None Skin: reports: None Smoking Status: Never smoker - Surgical History Gynecologic: reports: section, Other Exam General: Alert, Oriented x3 Dental: WNL Mouth Opening: Greater than 4 Fingerbreadths Neck Mobility: Normal Mallampati classification: II Respiratory: Lungs clear Cardiovascular: Regular rate Plan Anesthesia Type: General Consent for Procedure(s) Verified and Reviewed: Yes Code Status: Attempt Resuscitation ASA classification: 2-Mild systemic disease Is this case an emergency?: No
[2022-07-31] MEDS ORDERED: SCOPOLAMINE PATCH TOP ONE (11:49)
[2022-07-31] MEDS ORDERED: MIDAZOLAM 2 MG/2 ML VIAL ONE (11:53)
[2022-07-31] MEDS ORDERED: fentaNYL 100 MCG/2 ML VIAL ONE (11:53)
[2022-07-31] MEDS ORDERED: LIDOCAINE-PF 2% 10 ML AMP SUBQ ONE (11:54)
[2022-07-31] MEDS ORDERED: PROPOFOL 200 MG/20 ML VIAL IVP ONE (11:55)
[2022-07-31] MEDS ORDERED: ROCURONIUM 50 MG/5 ML VIAL ONE ×2 (11:56→13:13)
[2022-07-31] MEDS ORDERED: ONDANSETRON 4 MG/2 ML VIAL ONE (11:56)
[2022-07-31] MEDS ORDERED: DEXAMETHASONE 4 MG/ML VIAL ONE (11:56)
[2022-07-31] MEDS ORDERED: SEVOFLURANE 250 ML LIQUID INH ONE (11:59)
[2022-07-31] MEDS ORDERED: NALOXONE 0.4 MG/ML VIAL IVP PRN (12:02)
[2022-07-31] MEDS ORDERED: ATROPINE ABBOJECT 1 MG/10 ML SYRINGE IVP PRN (12:02)
[2022-07-31] MEDS ORDERED: fentaNYL 100 MCG/2 ML VIAL IVP PRN (12:02)
[2022-07-31] MEDS ORDERED: ONDANSETRON 4 MG/2 ML VIAL IVP PRN ×2 (12:02→14:02)
[2022-07-31] MEDS ORDERED: MORPHINE 2 MG/ML CARPUJECT IVP PRN (12:02)
[2022-07-31] MEDS ORDERED: METOCLOPRAMIDE 10 MG/2 ML VIAL IVP PRN (12:02)
[2022-07-31] MEDS ORDERED: HYDROmorphone 0.5 MG/0.5 ML SYRINGE IVP PRN (12:02)
[2022-07-31] MEDS ORDERED: ePHEDrine 50 MG/ML VIAL IVP PRN (12:02)
[2022-07-31] MEDS ORDERED: BUPIVACAINE 0.5% PF 30 ML VIAL SUBQ ONE ×2 (12:38)
[2022-07-31] MEDS ORDERED: LIDOCAINE MPF 2%-EPI 1:200000 20 ML VIAL SUBQ ONE ×2 (12:38)
[2022-07-31] MEDS ORDERED: LACTATED RINGERS 1,000 ML IV SCH (13:00)
[2022-07-31] MEDS ORDERED: HYDROmorphone 1 MG/ML CARPUJECT ONE (13:12)
[2022-07-31] MEDS ORDERED: SUGAMMADEX 200 MG/2 ML VIAL IVP ONE (13:52)
[2022-07-31] MEDS ORDERED: ACETAMINOPHEN 325 MG TABLET PO PRN (14:02)
[2022-07-31] MEDS ORDERED: oxyCODONE 5 MG TABLET PO PRN (14:02)
[2022-07-31] MEDS ORDERED: IBUPROFEN 600 MG TABLET PO PRN (14:02)
--- NOTE | 2022-07-31 14:08 | OPERATIVE REPORT ---
Operative Report - General Procedure Date: 07/31/22 Planned Procedure: excision endometrioma Pre-Op Diagnosis: endometrioma of abdominal wall Procedure Performed: excision of endometrioma Post Op Diagnosis: endometrioma of abdominal wall - Procedure Note Primary Surgeon: Dr. Cinthya Church Anesthesia Technique: General LMA, Local Pathology: endometrioma, sent to pathology Estimated Blood Loss (mL): 200 Indications: The patient has a painful mass on her abdominal wall. CT scan confirms a mass which has been biopsied and proven to be an endometrioma. She was seen and evaluated in the clinic where we discussed the risks, benefits, and alternatives of resection. These risks include bleeding, infection, damage to surrounding structures, and the need for further surgeries or procedures. The patient voiced understanding, her questions were answered, and she wished to proceed. PAR-Q. A consent was signed by the patient prior to the procedure. Findings: 1.large endometrioma, adherent to abdominal wall Complications: none - Other Other Information/Narrative: The patient was taken to the operating room and placed in the supine position. Preop antibiotics were given. ERAS medications were given. The patient was prepped and draped in the usual sterile fashion. A preop surgical timeout was performed. An incision was planned following the natural skin folds overlying the mass. The skin and subcutaneous tissues were injected with local anesthetic. The incision was made with a 15 blade scalpel and carried down through the skin and subcutaneous tissue to the level of the mass. The mass was identified and grasped with an Allis clamp. It was then freed from the surrounding tissues; it was noted to be very adherent to the anterior abdominal wall. The mass was re moved intact. Once the mass was free, it was removed and sent to pathology for permanent sections. It appeared consistent with the diagnosis of endometrioma. Excellent hemostasis was confirmed in the mass cavity. Next, the anterior rectus sheath fascia was reapproximated with 2-0 Vicryl in an interrupted fashion. Then the deep dermal tissues were reapproximated with 3-0 Vicryl. Finally, the skin edges were reapproximated with 4-0 Monocryl in a running subcuticular fashion. A sterile dressing of skin glue was placed. The patient tolerated the procedure well there were no complications.
[2022-07-31 16:34] VITALS: BP 139/58
--- NOTE | 2022-07-31 19:01 | ANESTHESIA POST OP EVALUATION ---
Anesthesia Post Eval - Post Anesthesia Eval Vitals: Last Vital Signs Temp 36.2 C L 07/31/22 16:00 Pulse 95 07/31/22 16:00 Resp 16 07/31/22 16:00 BP 139/58 H 07/31/22 16:00 Pulse Ox 98 07/31/22 16:00 O2 Flow Rate 0 07/31/22 10:30 CV Function Including HR & BP: Stable Pain Control: Satisfactory Nausea & Vomiting: Negative Mental Status: Baseline Respiratory Status: Airway Patent Hydration Status: Satisfactory Anesthesia Complications: None
== END 2022-07-31 10:19 | disposition home or self-care (01) ==
LOC: SDS 10:18
PROVIDERS: ATTEND Surgery
PROC: 0WBF0ZZ Excision of Abdominal Wall, Open Approach (ICD-10-PCS; principal; 2022-07-31 12:00)
DX: D21.4 Benign neoplasm of connective and other soft tissue of abdomen (principal); E66.01 Morbid (severe) obesity due to excess calories; Z32.02 Encounter for pregnancy test, result negative; Z68.38 Body mass index [BMI] 38.0-38.9, adult
CPT/HCPCS: 22903; 81025; A9270; J0690; J1170; J3490; J7120

== ENCOUNTER 2022-08-04 01:51 | Emergency (ER) | payer MEDICAID ==
[2022-08-04] MEDS ORDERED: ONDANSETRON 4 MG/2 ML VIAL IVP STA (02:10)
[2022-08-04] MEDS ORDERED: SODIUM CHLORIDE 0.9% 1,000 ML IV STA (02:10)
[2022-08-04 02:17] LABS: BILIRUBIN,URINE NEGATIVE (NEGATIVE); GLUCOSE, URINE (UA) NEGATIVE (NEGATIVE); KETONES,URINE (UA) NEGATIVE (NEGATIVE); LEUKOCYTE ESTERASE, URINE NEGATIVE (NEGATIVE); NITRITE,URINE NEGATIVE (NEGATIVE); OCCULT BLOOD,URINE NEGATIVE (NEGATIVE); PH,URINE 7.5 PH (5.0-7.5); PROTEIN,URINE NEGATIVE (NEGATIVE); UROBILINOGEN,URINE 0.2 (NORMAL) E.U./dL (NORMAL)
[2022-08-04 02:27] LABS: BASOPHILS % (AUTO) 0.3 %; EOSINOPHILS # (AUTO) 0.1 10^3/uL (0.0-0.7); HCT - HEMATOCRIT 42.3 % (37.0-47.0); LYMPHOCYTES # (AUTO) 0.6 10^3/uL (1.5-3.5); LYMPHOCYTES % (AUTO) 9.4 %; MEAN CORPUSCULAR HEMOGLOBIN 27.8 pg (27.0-31.0); MEAN CORPUSCULAR HGB CONC 33.1 g/dL (32.0-36.0); MEAN CORPUSCULAR VOLUME 83.9 fL (81.0-99.0); MONOCYTES # (AUTO) 0.4 10^3/uL (0.0-1.0); MONOCYTES % (AUTO) 6.4 %; NEUTROPHILS # (AUTO) 5.6 10^3/uL (1.5-6.6); NEUTROPHILS % (AUTO) 81.6 %; PLT - PLATELET COUNT 204 10^3/uL (130-450); RED BLOOD COUNT 5.04 10^6/uL (4.20-5.40); RED CELL DISTRIBUTION WIDTH 12.1 % (12.0-15.0); WHITE BLOOD COUNT 6.8 x10^3/uL (4.8-10.8)
[2022-08-04] MEDS ORDERED: KETOROLAC 30 MG/ML VIAL IVP STA (02:27)
[2022-08-04] MEDS ORDERED: HYDROmorphone 1 MG/ML CARPUJECT IVP STA (02:27)
[2022-08-04 02:28] LABS: CLARITY,URINE CLEAR (CLEAR)
--- NOTE | 2022-08-04 02:38 | ED Physician Documentation ---
PD HPI ABD PAIN - Stated complaint Stated Complaint: post op pain - Chief complaint Chief Complaint: Abd Pain - History obtained from History obtained from: Patient - Additional information Additional information: The patient comes to the emergency department chief complaint of dysuria, abdominal pain, and right flank pain that has been going on for the last few days, increasingly. The patient states she became nauseated today and vomited twice. She states she had an ambulation performed for endometriosis 4 days ago. This was done in an open fashion through an incision in her abdomen, the pat ient states. She denies any fevers or chills. No respiratory symptoms. She states the pain was initially in her abdomen but now has migrated to her right flank. She has a history of kidney stones previously. No other complaints at this time. Review of Systems Ten Systems: 10 systems reviewed and negative Constitutional: reports: Reviewed and negative Eyes: reports: Reviewed and negative Ears: reports: Reviewed and negative Nose: reports: Reviewed and negative Throat: reports: Reviewed and negative Cardiac: reports: Reviewed and negative Respiratory: reports: Reviewed and negative GI: reports: Abdominal Pain, Nausea, Vomiting : reports: Dysuria Skin: reports: Reviewed and negative Musculoskeletal: reports: Reviewed and negative Neurologic: reports: Reviewed and negative Psychiatric: reports: Reviewed and negative Endocrine: reports: Reviewed and negative Immunocompromised: reports: Reviewed and negative PD PAST MEDICAL HISTORY - Past Medical History Past Medical History: Yes Cardiovascular: None Respiratory: None Neuro: None Endocrine/Autoimmune: None GI: None RESEARCH PROFESSIONAL: Endometriosis : Other HEENT: None Psych: Anxiety Musculoskeletal: None Derm: None - Past Surgical History Past Surgical History: Yes /RESEARCH PROFESSIONAL: section, Other - Present Medications Home Medications: Ambulatory Orders Medication Instructions Recorded Confirmed HYDROcod/ACETAM 5/325 [[place] 5/325] 1 - 2 tablet PO Q6H PRN #10 tablet 08/04/22 Ondansetron Odt [Zofran] 4 mg TL Q6H PRN #10 tablet 08/04/22 oxyCODONE [Roxicodone] 5 mg PO Q6HR PRN 08/04/22 08/04/22 - Allergies Allergies/Adverse Reactions: Allergies Allergy/AdvReac Type Severity Reaction Status Date / Time No Known Drug Allergies Allergy Verified 08/04/22 01:56 - Social History Does the pt smoke?: No Smoking Status: Never smoker Does the pt drink ETOH?: No Does the pt have substance abuse?: No - Immunizations Immunizations are current?: Yes Immunizations: TDAP >10years/unknown - POLST Patient has POLST: No PD ED PE NORMAL - Vitals Vital signs reviewed: Yes - General General: Alert and oriented X 3, No acute distress, Well developed/nourished - HEENT HEENT: Atraumatic, PERRL, EOMI, Moist mucous membranes - Neck Neck: Supple, no meningeal sign - Cardiac Cardiac: RRR, No murmur, Strong equal pulses - Respiratory Respiratory: No respiratory distress, Clear bilaterally - Abdomen Abdomen: Soft, Non distended, Other (Moderate suprapubic tenderness, moderate right flank and CVA tenderness. No rebound or guarding. No left-sided tenderness. Minimal right lower quadrant tenderness.) - Derm Derm: Warm and dry - Extremities Extremities: No deformity - Neuro Neuro: Alert and oriented X 3 - Psych Psych: Normal mood, Normal affect Results - Vitals Vitals: Vital Signs - 24 hr 08/04/22 08/04/22 08/04/22 01:57 02:38 02:57 Temperature 37.3 C Heart Rate 109 H 95 95 Respiratory 16 17 16 Rate Blood Pressure 119/96 H 126/79 125/76 O2 Saturation 98 97 96 08/04/22 04:04 Temperature 36.4 C L Heart Rate 86 Respiratory 12 Rate Blood Pressure 104/69 O2 Saturation 98 Oxygen O2 Source Room air - Labs Labs: Laboratory Tests 08/04/22 08/04/22 08/04/22 02:04 02:04 02:23 WBC 6.8 RBC 5.04 Hgb 14.0 Hct 42.3 MCV 83.9 MCH 27.8 MCHC 33.1 RDW 12.1 Plt Count 204 MPV 11.0 H Neut # (Auto) 5.6 Lymph # (Auto) 0.6 L [place] # (Auto) 0.4 Eos # (Auto) 0.1 Baso # (Auto) 0.0 Absolute Nucleated RBC 0.00 Nucleated RBC % 0.0 Sodium Potassium Chloride Carbon Dioxide Anion Gap BUN Creatinine Estimated GFR (MDRD) Glucose Calcium Total Bilirubin AST ALT Alkaline Phosphatase Total Protein Albumin Globulin Albumin/Globulin Ratio Lipase Urine Color YELLOW Urine Clarity CLEAR Urine pH 7.5 Ur Specific [place] 1.015 Urine Protein NEGATIVE Urine Glucose (UA) NEGATIVE Urine Ketones NEGATIVE Urine Occult Blood NEGATIVE Urine Nitrite NEGATIVE Urine Bilirubin NEGATIVE Urine Urobilinogen 0.2 (NORMAL) Ur Leukocyte Esterase NEGATIVE Ur Microscopic Review NOT INDICATED Urine Culture Comments NOT INDICATED Urine HCG, Qual NEGATIVE 08/04/22 02:23 WBC RBC Hgb Hct MCV MCH MCHC RDW Plt Count MPV Neut # (Auto) Lymph # (Auto) [place] # (Auto) Eos # (Auto) Baso # (Auto) Absolute Nucleated RBC Nucleated RBC % Sodium 135 Potassium 4.0 Chloride 101 Carbon Dioxide 25 Anion Gap 9.0 BUN 11 Creatinine 0.7 Estimated GFR (MDRD) 98 Glucose 115 H Calcium 8.5 Total Bilirubin 1.3 H AST 25 ALT 45 Alkaline Phosphatase 71 Total Protein 7.5 Albumin 3.5 Globulin 4.0 Albumin/Globulin Ratio 0.9 L Lipase 20 L Urine Color Urine Clarity Urine pH Ur Specific [place] Urine Protein Urine Glucose (UA) Urine Ketones Urine Occult Blood Urine Nitrite Urine Bilirubin Urine Urobilinogen Ur Leukocyte Esterase Ur Microscopic Review Urine Culture Comments Urine HCG, Qual - Rads (name of study) CT abd/pelvis Radiology: Final report received, See rad report (Postprocedural emphysema and Focal fluid and subcutaneous tissues ventral right lower quadrant abdominal wall. No suggestion of abscess. Nonspecific fasciitis adjacent right rectus abdominal muscles.) PD Medical Decision Making - ED course Complexity details: reviewed results, re-evaluated patient, considered differential, d/w patient ED course: The patient was treated symptomatically with IV fluids, Zofran, Dilaudid, and Toradol. She was worked up with laboratory studies and urinalysis initially, All of which were unremarkable. She was then sent for a CT scan of the abdomen and pelvis to evaluate her right sided abdominal pain to tenderness in setting of recent surgery. This did show some subcutaneous fluid along the right aspect of the incision and abdominal wall, without And organized, rim-enhancing fluid collection to suggest abscess. There was also noted to be fasciitis nonspecifically tracking along the adjacent right rectus abdominis muscles. I discussed the findings with the patient. Her wound looks very good and there is no induration, edema, or erythema surrounding it to suggests an infectious process. The wound is well sealed and has not dehisced. At this point in time, I do not feel the patient needs antibiotic management. We have discussed symptomatic management at home, as well as the usual indications for return. At the patient's request, I have changed her pain medication to hydrocodone and I have also discussed with her that the addition of ibuprofen may be helpful. I have also sent in a prescription for Zofran for the patient.. Departure - Departure Disposition: 01 Home, Self Care Clinical Impression: Post-op pain Condition: Stable Instructions: Post Op Pain Manage Home Meds, Post Op Pain Manage Home Non Med, ED Wound Check Post Op No Infec, ED Post Op Pain Prescriptions: HYDROcod/ACETAM 5/325 [[place] 5/325] 1 - 2 tablet PO Q6H PRN #10 tablet PRN Reason: Pain Ondansetron Odt [Zofran] 4 mg TL Q6H PRN #10 tablet PRN Reason: Nausea / Vomiting Comments: Your labs, urinalysis, and CT all look good. There is no evidence of a serious cause for your pain, or a complication of your surgery. There was found to be some mild blood leakage that had occurred along your incision site to the right which has caused some inflammation. This is tracked along your muscle planes off toward your right flank, and that is most likely why you are having pain and tenderness on that side. There is no such fluid on the left side, which is most likely why you do not have pain over there. In general, the sort of thing is fairly common after surgery and is expected to heal on its own. Please follow-up with your surgeon as planned. A prescription for a different pain medication has been electronically transmitted to the [facility] pharmacy in [place], at your request, along with a prescription for nausea medicine. You should choose one pain medication or the other, but do not dose both at the same time.
[2022-08-04 02:41] LABS: ALBUMIN 3.5 g/dL (3.2-5.5); ALBUMIN/GLOBULIN RATIO 0.9 (1.0-2.2); BILIRUBIN,TOTAL 1.3 mg/dL (0.2-1.0); CALCIUM 8.5 mg/dL (8.5-10.3); CREATININE 0.7 mg/dL (0.4-1.0); TOTAL PROTEIN 7.5 g/dL (6.7-8.2)
[2022-08-04] MEDS ORDERED: iohexoL-300 100 ML VIAL ONE (02:48)
[2022-08-04 02:53] LABS: HCG UR QUAL NEGATIVE
[2022-08-04] MEDS ORDERED: iohexoL-300 100 ML VIAL IVP ONE (03:49)
[2022-08-04 04:05] VITALS: BP 104/69
--- NOTE | 2022-08-04 08:10 | CT Report ---
PROCEDURE: ABDOMEN/PELVIS W INDICATIONS: post-op R abd pain (ablation endometriosis) CONTRAST: Omni 300 100ml TECHNIQUE: After the administration of IV contrast, 5 mm thick sections acquired from the diaphragms to the symp hysis. 5 mm thick coronal and sagittal reformats were acquired. For radiation dose reduction, the f ollowing was used: automated exposure control, adjustment of mA and/or kV according to patient size. COMPARISON: CT abdomen and pelvis with, 05/05/2022, 10/12/2021, 08/21/2020. FINDINGS: Image quality: Excellent. ABDOMEN: Lung bases: Lung bases are clear. Heart size is normal. Solid organs: Liver and spleen are normal in size and enhancement. Gallbladder is normal. Biliary system is non dilated. Pancreas enhances normally. No adrenal nodules. Kidneys demonstrate normal size and enhancement, without hydronephrosis. Peritoneum and bowel: Bowel loops demonstrate normal wall thickness and caliber. No free fluid or a ir. Nodes and vessels: No retroperitoneal or mesenteric adenopathy by size criteria. Aorta and inferior vena cava are normal in size. Miscellaneous: There are postsurgical changes related to recent surgical excision of the right lower anterior abdominal wall enhancing mass. There is a fluid collection in the right anterior abdominal w all measuring 4.8 x 9.6 x 6.2 cm. There is soft tissue stranding and subcutaneous emphysema in the a campbell. PELVIS: Genitourinary: Uterus and ovaries are unremarkable. There is a small rim-enhancing cyst in the right ovary, likely a corpus luteum. Bladder wall thickness is normal. Miscellaneous: No inguinal hernias or adenopathy. Bones: No suspicious bony lesions. No vertebral body compression fractures. IMPRESSION: 1.Postsurgical changes in the right lower anterior abdominal wall with mild soft tissue stranding and subcutaneous emphysema. There is a 4.8 x 9.6 x 6.2 cm subcutaneous fluid collection in the right ant erior abdominal wall, compatible with a hematoma or seroma. No rim-enhancing fluid collections to sug gest abscess at this time. No significant discrepancy with the preliminary interpretation. Reviewed by: Wilmar Burns MD on 08/04/2022 8:09 AM PST Approved by: Wilmar Burns MD on 08/04/2022 8:09 AM PST Station ID: [id number]
== END 2022-08-04 04:50 | disposition home or self-care (01) ==
LOC: ED 01:51
DX: G89.18 Other acute postprocedural pain (principal)
CPT/HCPCS: 36415; 74177; 80053; 81003; 81025; 83690; 85025; 96361; 96374; 96375; 99284; J1170; Q9967; 81001; 87086

== ENCOUNTER 2023-01-31 21:11 | Emergency (ER) | payer MEDICAID ==
[2023-01-31] MEDS ORDERED: HYDROcod/ACETAM 5/325 MG TABLET PO STA (22:07)
--- NOTE | 2023-01-31 22:10 | ED Physician Documentation ---
History of Present Illness - Stated complaint Stated Complaint: SWOLLEN NECK/THROAT - Chief complaint Chief Complaint: Heent - History obtained from History obtained from: Patient - History of Present Illness Timing: Today Pain level max: 7 Pain level now: 7 - Additonal information Additional information: Patient is a 32-year-old female who presents to the emergency department with swelling under the left mandible. She states that this started suddenly this morning. Has grown larger and more painful throughout the day. No redness. No fevers. No recent illnesses. No rhinorrhea or congestion. She states increasing pain tonight. Has not had similar symptoms previously. No sore throat. 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 : Other HEENT: None Psych: Anxiety Musculoskeletal: None Derm: None - Past Surgical History Past Surgical History: Yes /PSYCHIATRIC SOCIAL WORKER: section, Other - Present Medications Home Medications: Ambulatory Orders Medication Instructions Recorded Confirmed HYDROcod/ACETAM 5/325 [[place] 5/325] 1 - 2 ea PO Q6H PRN #14 tablet 01/31/23 - Allergies Allergies/Adverse Reactions: Allergies Allergy/AdvReac Type Severity Reaction Status Date / Time No Known Drug Allergies Allergy Verified 08/04/22 01:56 - Social History Does the pt smoke?: No Smoking Status: Never smoker Does the pt drink ETOH?: No Does the pt have substance abuse?: No - Immunizations Immunizations are current?: Yes Immunizations: TDAP >10years/unknown - POLST Patient has POLST: No PD ED PE NORMAL - Vitals Vital signs reviewed: Yes - General General: Alert and oriented X 3, No acute distress - HEENT HEENT: PERRL, Ears normal, Moist mucous membranes, Pharynx benign, Dentition benign - Neck Neck: Supple, no meningeal sign, Other (No adenopathy. The left submandibular gland is tender and swollen. Normal intraoral exam. No stone visible) - Cardiac Cardiac: RRR - Respiratory Respiratory: No respiratory distress, Clear bilaterally - Derm Derm: Warm and dry - Neuro Neuro: Alert and oriented X 3 - Psych Psych: Normal mood, Normal affect Results - Vitals Vitals: Vital Signs - 24 hr 06/21/23 06/21/23 21:27 22:26 Temperature 36.3 C L Heart Rate 96 95 Respiratory 16 16 Rate Blood Pressure 146/98 H 133/88 H O2 Saturation 100 97 Oxygen O2 Source Room air PD Medical Decision Making - ED course Complexity details: considered differential, d/w patient ED course: 32-year-old female with left submandibular gland swelling, consistent with a obstructed salivary gland. We will place on warm compresses and sour food for home. We will have her follow-up with ENT if she fails to improve. No other facial swelling. No cellulitis. No evidence of infection. No fevers. Patient request pain medication for home and will prescribe pain medication. Patient counseled regarding signs and symptoms for which I believe and urgent re- evaluation would be necessary. Patient with good understanding of and agreement to plan and is comfortable going home at this time This document was made in part using voice recognition software. While efforts are made to proofread this document, sound alike and grammatical errors may occur. Departure - Departure Disposition: 01 Home, Self Care Clinical Impression: Sialoadenitis of submandibular gland Condition: Good Instructions: ED Sublingual Gland Obstruction Follow-Up: Juany Jean ARNP [Primary Care Provider] - [facility] [Provider Group] Prescriptions: HYDROcod/ACETAM 5/325 [[place] 5/325] 1 - 2 ea PO Q6H PRN #14 tablet PRN Reason: Pain Comments: Your prescriptions were sent to [facility] in [place]. Please follow-up with your doctor for further care. Please return if you worsen. As we discussed you appear to have an obstructed submandibular gland. Please apply a warm compress to the area and try sucking on sour candies to increase saliva production which will hopefully dislodge the stone. If your symptoms are worsening, you will need to be seen by ENT. I am prescribing a short course of narcotic pain medication for you. These are potentially dangerous and addictive medications that should be used carefully. These medications may constipate you. Take an sewj-[id number] stool softener (docusate) twice daily with plenty of water while taking these medications. If you go 24 hours without a bowel movement, take srfl-[id number] miralax, per package instructions. Do not drink or drive while taking these medications. If you received narcotic or sedating medications while in the emergency department, do not drive for 24 hours. Store this medication in a safe, secure place and out of reach of children. It is a violation of federal law to give or sell this medication to another person or to use in a manner other than prescribed. The ED will not refill narcotic prescriptions, including prescriptions lost or stolen. To dispose of unwanted medications: 1. [facility] at [address] in [place] has a medication drop box. They accept prescription medications (in pill form) Sunday through Sunday 9:00 a.m. to 5:00 p.m. 2. [facility] [employer] accepts prescription medications (in pill form only) for disposal year round. Call for more in formation. 3. Contact the [facility] for the next [facility] sponsored prescription drug collection event. , [phone], or [phone]; Discharge Date/Time: 01/31/23 22:27
[2023-01-31 22:28] VITALS: BP 133/88
== END 2023-01-31 22:27 | disposition home or self-care (01) ==
LOC: ED 21:11
DX: K11.20 Sialoadenitis, unspecified (principal)
CPT/HCPCS: 99282; 99283; A9270

== ENCOUNTER 2023-02-22 13:48 | Outpatient (CLI) | payer MEDICAID ==
[2023-02-22] MEDS ORDERED: iohexoL-300 100 ML VIAL ONE (15:19)
[2023-02-22] MEDS ORDERED: iohexoL-300 100 ML VIAL IVP ONE (15:33)
[2023-02-22] MEDS ORDERED: DIATRIZOATE MEGLU/DIATRIZO SOD 30 ML BOTTLE PO ONE (15:34)
--- NOTE | 2023-02-22 17:41 | CT Report ---
PROCEDURE: ABDOMEN/PELVIS W INDICATIONS: LLQ ABD PAIN, PELVIC PAIN CONTRAST: 100ml Omni 300 TECHNIQUE: After the administration of intravenous contrast, 5 mm thick sections acquired from the diaphragms to the symphysis. 5 mm thick coronal and sagittal reformats were acquired. For radiation dose reducti on, the following was used: automated exposure control, adjustment of mA and/or kV according to eligio ent size. COMPARISON: CT abdomen pelvis 08/04/2022 FINDINGS: Image quality: Excellent. Lung bases and heart: Unremarkable. Asymmetric elevation of the right hemidiaphragm. Liver: No solid mass. Gallbladder and biliary tree: No radiopaque stones or wall thickening. No biliary dilation. Spleen: No splenomegaly. Pancreas: No pancreatic ductal dilation. Adrenals: No adrenal nodule. Kidneys and ureters: No hydronephrosis. No renal cystic lesion which requires follow up. No solid mas s. Bowel and peritoneum: No bowel distension. No pathologic free fluid. A few colonic diverticuli. Adriana l appendix. Lymph nodes: No central or retroperitoneal adenopathy. Vessels: No infrarenal aortic aneurysm. PELVIS Reproductive organs: Anteverted uterus. Bladder: Only partially distended. Pelvic lymph nodes: No pelvic adenopathy by size criteria. Bones: No aggressive osseous abnormality. Other: No significant ventral or inguinal hernia. Lower abdominal wall scar. IMPRESSION: No acute abnormality identified. No free fluid. Reviewed by: Lisandro Otero MD on 02/22/2023 5:39 PM PDT Approved by: Lisandro Otero MD on 02/22/2023 5:39 PM PDT Station ID: [id number]
== END 2023-02-22 13:49 | disposition home or self-care (01) ==
LOC: DI 13:48
PROVIDERS: ATTEND Nurse Practitioner
DX: R10.2 Pelvic and perineal pain (principal); R10.32 Left lower quadrant pain
CPT/HCPCS: 74177; Q9963; Q9967

== ENCOUNTER 2023-09-13 08:35 | Emergency (ER) | payer MEDICAID ==
[2023-09-13 08:47] VITALS: BP 148/89; O2SAT 97
--- NOTE | 2023-09-13 09:03 | ED Physician Documentation ---
PD HPI LOWER EXT INJURY - Stated complaint Stated Complaint: RT FT PX - Chief complaint Chief Complaint: Ext Problem - History obtained from History obtained from: Patient - History of Present Illness PD HPI LOW EXT INJURY LOCATION: Right, Foot Type of injury: Other (used bike at gym) Where injury occurred: Other (gym) Timing - onset: How many days ago (3) Timing - duration: Days (3) Timing - details: Abrupt onset, Still present Improved by: Rest Worsened by: Moving, Palpating Associated symptoms: No: Weakness, Numbness, Tingling, Swelling, Discolored Contributing factors: No: Anticoagulated Similar symptoms before: Has not had sx before Recently seen: Not recently seen - Additional information Additional information: 33-year-old Paola Mosher went to the gym Sunday night had a normal workout with the exception of using the bicycle as well as the treadmill. She has now developed pain when she walks over the proximal fifth on the right side. Review of Systems Constitutional: denies: Fever Ears: denies: Ear pain Nose: denies: Congestion Throat: denies: Sore throat Respiratory: denies: Cough GI: denies: Nausea, Vomiting, Diarrhea Musculoskeletal: reports: Extremity pain, Pain with weight bearing PD PAST MEDICAL HISTORY - Past Medical History Past Medical History: Yes Cardiovascular: None Respiratory: None Neuro: None Endocrine/Autoimmune: None GI: None BUSINESS REPRESENTATIVE: Endometriosis : Other HEENT: None Psych: Anxiety Musculoskeletal: None Derm: None - Past Surgical History Past Surgical History: Yes /BUSINESS REPRESENTATIVE: section, Other - Present Medications Home Medications: Ambulatory Orders Medication Instructions Recorded Confirmed No Known Home Medications 09/13/23 09/13/23 - Allergies Allergies/Adverse Reactions: Allergies Allergy/AdvReac Type Severity Reaction Status Date / Time No Known Drug Allergies Allergy Verified 09/13/23 08:46 - Social History Does the pt smoke?: No Smoking Status: Never smoker Does the pt drink ETOH?: No Does the pt have substance abuse?: No - Immunizations Immunizations are current?: Yes Immunizations: TDAP >10years/unknown - POLST Patient has POLST: No PD ED PE NORMAL - Vitals Vital signs reviewed: Yes (hypertensive ) - General General: Alert and oriented X 3, No acute distress, Well developed/nourished - HEENT HEENT: Atraumatic, PERRL, EOMI - Respiratory Respiratory: No respiratory distress - Derm Derm: Normal color, Warm and dry, No rash - Extremities Extremities: No deformity, No edema, Other (There is tenderness to the proximal fifth metatarsal on the right side over the plantar surface of the foot. There is no crepitance distal neurovascular components are intact.) - Neuro Neuro: Alert and oriented X 3, fiber optic assembler 2-12 intact, No motor deficit, No sensory deficit, Normal speech Eye Opening: Spontaneous Motor: Obeys Commands Verbal: Oriented GCS Score: 15 - Psych Psych: Normal mood, Normal affect Results - Vitals Vitals: Vital Signs - 24 hr 09/13/23 08:44 Temperature 36.4 C L Heart Rate 88 Respiratory 20 Rate Blood Pressure 148/89 H O2 Saturation 97 Oxygen O2 Source Room air - Rads (name of study) Foot right Relevant Findings:: Prelim report reviewed (Impression: No acute bony abnormality.), EMP independent interpretation of test, See rad report PD Medical Decision Making - ED course Complexity details: considered differential, d/w patient ED course: 33-year-old female using an exercise bike has now plantar fasciitis on the lateral aspect of the right foot. X-rays without evidence of fracture she is given instructions on plantar fasciitis. Departure - Departure Disposition: 01 Home, Self Care Clinical Impression: Plantar fasciitis Condition: Stable Instructions: ED Plantar Fasciitis Follow-Up: Juany Jean ARNP [Primary Care Provider] - Comments: Paola, today it looks like you have plantar fasciitis or an inflammation to the fascia on the bottom part of your foot. This usually occurs from repeated trauma to a specific area and the treatment for it is to stretch the fascial covering and this usually takes about a week to recover from. Discharge Date/Time: 09/13/23 09:49
--- NOTE | 2023-09-13 09:18 | XRAY Report ---
PROCEDURE: Foot 3+V RT INDICATIONS: pain over proximal 5th mild trauma TECHNIQUE: 3 views of the foot were acquired. COMPARISON: None. FINDINGS: Bones: No fractures or dislocations. No suspicious bony lesions. Soft tissues: No suspicious soft tissue calcifications or masses. IMPRESSION: No acute bony abnormality. Reviewed by: Ezequiel Laguna MD on 09/13/2023 9:17 AM [facility] Approved by: Ezequiel Laguna MD on 09/13/2023 9:17 AM [facility] Station ID: [id number]
== END 2023-09-13 09:49 | disposition home or self-care (01) ==
LOC: ED 08:35
DX: M72.2 Plantar fascial fibromatosis (principal)
CPT/HCPCS: 99283